=== PATIENT | male | born 1940 | race Caucasian/White ===

== ENCOUNTER → 2018-01-22 11:12 | Outpatient (CLI) | payer MEDICARE, OTHER, SELFPAY ==
[2018-01-22 11:37] LABS: Basophils % 0.4 % (0.1-2.0); Eosinophils # 0.2 K/mm3 (0.0-0.4); Eosinophils % 2.3 % (0.1-12.0); Hematocrit 28.2 % (42.0-52.0); Hemoglobin 9.2 g/dL (14.1-18.0); Lymphocytes # 1.2 K/mm3 (0.7-4.5); Lymphocytes % 12.6 K/mm3 (10-50); Mean Corpuscular HGB Conc 32.4 g/dL (31.8-35.4); Mean Corpuscular Hemoglobin 27.8 pg (27.0-31.2); Mean Corpuscular Volume 85.9 fl (80-94); Mean Platelet Volume 8.4 fl (7.4-10.4); Monocytes # 0.3 K/mm3 (0.1-1.0); Monocytes % 2.6 % (1.7-9.3); Neutrophils % 82.1 % (37.0-80.0); Platelet Count 235 K/mm3 (142-424); Red Blood Count 3.29 M/mm3 (4.60-6.20); Red Cell Distribution Width 14.1 % (11.5-17.5); White Blood Count 9.7 K/mm3 (4.8-10.8)
== END ==
PROVIDERS: Visit Provider General Practice
DX: D64.9 Anemia, unspecified (principal)
CPT/HCPCS: 36415; 85025

== ENCOUNTER → 2018-05-09 12:19 | Outpatient (CLI) | payer MEDICARE, OTHER, SELFPAY | PROVIDERS: Family Provider General Practice; PCP General Practice; Visit Provider Orthopaedic Surgery | DX: M54.31 Sciatica, right side (principal) ==

== ENCOUNTER 2018-12-06 20:06 | Observation (INO) ==
--- NOTE | 2018-12-06 20:23 | Emergency Department Note ---
ED Disposition Clinical Impression: Gastroenteritis due to norovirus, Dehydration Disposition: Admitted as Observation Condition on Discharge: Fair - Critical Care Critical Care Time: No Attestation: On 12/06/18, the high probability of a clinically significant, sudden or life threatening deterioration of the following system(s) required my full and direct attention, intervention and personal management. The time I documented below is in addition to time spent performing reported procedures but includes the following listed in this critical care notation. Medical Decision Making - Aron Inquiry Pt receiving controlled substance: No Vital Signs: 12/06/18 20:20 12/06/18 21:08 12/06/18 21:30 Temperature 98.2 F Temperature Source Oral Pulse Rate [Right] 86 80 86 Respiratory Rate 18 18 18 Blood Pressure [Right Arm] 165/82 H 159/72 H 152/74 H Blood Pressure Mean [Right Arm] 109 101 100 Blood Pressure Source [Right Arm] Automatic Cuff Automatic Cuff Automatic Cuff Blood Pressure Position [Right Arm] Supine Supine Supine 02 Sat by Pulse Oximetry 98 98 98 Oxygen Delivery Method Room Air Room Air Room Air 12/06/18 22:30 Temperature Temperature Source Pulse Rate [Right] 79 Respiratory Rate 14 Blood Pressure [Right Arm] 153/84 H Blood Pressure Mean [Right Arm] 107 Blood Pressure Source [Right Arm] Blood Pressure Position [Right Arm] 02 Sat by Pulse Oximetry 98 Oxygen Delivery Method Room Air - Lab Data Lab Results 12/06/18 20:30: WBC 7.2, RBC 4.41 L, Hgb 12.1 L, Hct 36.7 L, MCV 83.4, MCH 27.4, MCHC 32.8, RDW 14.7, Plt Count 201, MPV 8.0, Neut % (Auto) 89.2 H, Lymph % (Auto) 7.6 L, [place] % (Auto) 2.9, Eos % (Auto) 0.2, Baso % (Auto) 0.2, Neut # (Auto) 6.4, Lymph # (Auto) 0.6 L, [place] # (Auto) 0.2, Eos # (Auto) 0.0, Baso # (Auto) 0.0, Total Counted 100, Neutrophils % (Manual) 77 H, Band Neutrophils % 13.0 H, Lymphocytes % (Manual) 10, Platelet Estimate Normal, RBC Morphology Normal 12/06/18 20:30: Sodium 142, Potassium 3.8, Chloride 106, Carbon Dioxide 21, Anion Gap 18.8 H, BUN 34 H, Creatinine 2.19 H, Estimated Creat Clear 31, Estimated GFR 29 L, Est GFR ( Amer) 35 L, Glucose 149 H, Calcium 8.3 L, Total Bilirubin 1.0, AST 22, ALT 25, Alkaline Phosphatase 77, Troponin I < 0.02, Total Protein 7.2, Albumin 3.4, Globulin 3.8 H, Albumin/Globulin Ratio 0.9 L, Amylase 22 L, Lipase 55 L 12/06/18 20:30: Lactate 2.8 H 12/06/18 20:40: Influenza Type A Ag Negative, Influenza Type B Ag Negative 12/06/18 20:56: Urine Color Yellow, Urine Appearance Clear, Urine pH 5.5, Ur Specific [place] >= 1.030, Urine Protein Trace, Urine Glucose (UA) Negative, Urine Ketones Negative, Urine Blood Trace-i, Urine Nitrate Negative, Urine Bilirubin Negative, Urine Urobilinogen 0.2, Ur Leukocyte Esterase Negative, Ur Squamous Epith Cells 10-20, Amorphous Sediment 2+, Urine Mucus 1+ 12/06/18 20:56: Stl Aeromonas (PCR) Not detected, Stl C. cayetanensis PCR Not detected, Stool Rotavirus (PCR) Not detected, Stl Adenov F 40/41 PCR Not detected, Stool Astrovirus (PCR) Not detected, Stool Campylobacter PCR Not detected, Stl C.difficile Tox PCR Not detected, Stool Cryptosporidium PCR Not detected, Stl E.coli Shiga Tox PCR Not detected, Stool E coli O157 PCR Not detected, Stl Enterotoxigenic E PCR Not detected, Stool EPEC (PCR) Not detected, Stool EAEC (PCR) Not detected, Stl E. histolytica PCR Not detected, Stool Giardia Lamblia PCR Not detected, Stool Salmonella PCR Not detected, Stool Sapovirus (PCR) Not detected, Stl P. shigelloides PCR Not detected, Stl Shigella /EIEC PCR Not detected, St Y.enterocolitica PCR Not detected, Stool Vibrio (PCR) Not detected, Stl Vibrio cholerae PCR Not detected, Stl Norovirus GI/GII PCR Detected A Result diagrams: 12/06/18 20:30 12/06/18 20:30 Orders (Tests/Meds): ED MEDICATIONS Generic Name Dose Route Start Last Admin Trade Name Freq PRN Reason Stop Dose Admin Sodium Chloride 1,000 mls @ 500 mls/hr 12/06/18 20:30 12/06/18 20:33 Sod Chlor 0.9% 1000ml Bag IV 01/05/19 20:29 500 mls/hr .Q2H ELIZABETH Administration Discontinued Medications Generic Name Dose Route Start Last Admin Trade Name Freq PRN Reason Stop Dose Admin Ondansetron HCl 4 mg 12/06/18 21:54 12/06/18 22:15 Zofran 4mg/2ml Vial IV 12/06/18 21:55 4 mg ONCE ONE Administration ORDERS Category Date Time Status CT abdomen pelvis wo con Stat Cat Scan 12/06/18 21:15 Taken Blood Culture Stat Micro 12/06/18 20:30 Received - Radiology Data #1 Image(s): Chest Image Reviewed: Yes I reviewed the patient's radiology image pacer, prior sternotomy. nad. - CT Data CT Scan: Abdomen, Pelvis Time Received: 21:[address] Reviewed: Yes: I have viewed the radiologist's interpretation Findings Narrative: CT scan interpreted by [facility] radiologist. Faxed report received and reviewed: Moderate fluid and gas content in the colon consistent with acute diarrheal illness. Normal appendix. No evidence of diverticulosis or diverticulitis. No evidence of bowel obstruction, perforation, or abscess. Moderate sized hiatal hernia. Small fatty left inguinal hernia. No bowel herniation or obstruction. - ECG Data Tracing #1 EKG interpreted by Shun Mcginnis MD: Rhythm: sinus Rate: 87 Martin: normal Ectopy: none Conduction: normal ST Segment Changes: Nonspecific, diffuse T Wave Changes: Nonspecific, diffuse Q Waves: none No evidence of acute ischemia or injury Prior electrocardiagrams reviewed. Last EKG was 2015. ST, T wave changes are new. - Physician Consults Physician Consulted: Bubba Time: 23:15 Reason -: Admission Comment/Response: Agrees to admit the patient to the hospital. We discussed the patient's clinical information, including history, exam, laboratory and radiology results and ED course. Per hospital procedure, I will write temporary bridge inpatient orders on the patient. Specific orders requested by the admitting physician: Continue hydration, antiemetics General Adult HPI - General Stated complaint: weakness,V&D,Fever Time Seen by Provider: 12/06/18 20:26 - History of Present Illness HPI narrative: Sick for 24 hours. Copious amounts of vomiting and diarrhea. states both have contained blood. Subjective fever. Generalized abdominal pain and distention. No known exposures. No recent travel. Family states has had a previous episode of sepsis and had to have IV infusions of antibiotics for a year and a half. - Related Data Home Medications Medication Instructions Recorded Confirmed Amlodipine Besylate [Amlodipine 5 mg PO BID 12/06/18 12/06/18 5mg tab] Aspirin [Aspir 81] 81 mg PO AC 12/06/18 12/06/18 Atorvastatin Calcium [Atorvastatin 80 mg PO HS 12/06/18 12/06/18 80mg Tab] Fluoxetine HCl 20 mg PO BID 12/06/18 12/06/18 Gabapentin [Gabapentin 300mg Cap] 600 mg PO BID 12/06/18 12/06/18 Hydrocodone/Acetaminophen 10 mg PO TID 12/06/18 12/06/18 [Hydrocodone-Acetamin 10-325 mg] Iron [Iron 18mg Tab] 27 mg PO DAILY 12/06/18 12/06/18 Loratadine [Allergy] 10 mg PO AC 12/06/18 12/06/18 Meloxicam [Mobic 7.5mg Tab] 7.5 mg PO BID 12/06/18 12/06/18 Pantoprazole Sodium [Protonix 40mg 40 mg PO HS 12/06/18 12/06/18 tablet] Ramipril 5 mg PO AC 12/06/18 12/06/18 Temazepam [Restoril] 30 mg PO HS 12/06/18 12/06/18 Allergies Allergy/AdvReac Type Severity Reaction Status Date / Time No Known Allergies Allergy Unverified 08/20/17 15:10 [facility] History - Hepatitis A Screen Attestation statement:: This patient has been screened for Hepatitis A risk factors. I have reviewed the patient's past medical history: Yes ROS Obtained: Yes All systems reviewed & no additional complaints - Constitutional Constitutional: Reports fever(s) (Subjective) - Gastrointestinal Gastrointestingal: Reports: abdominal pain, diarrhea, vomiting blood, bright red blood in stools, vomiting Physical Exam - General General appearance: alert, in no apparent distress - Head Head exam: atraumatic, normocephalic - Eye Eye exam: Present: normal appearance, PERRL, EOMI - ENT ENT exam: Present: mucous membranes dry - Neck Neck exam: Present: normal inspection, trachea midline - Chest Chest inspection: Present: normal inspection, symmetric chest wall rise - Respiratory Respiratory exam: Present: normal lung sounds bilaterally. Absent: respiratory distress - Cardiovascular Cardiovascular exam: Present: regular rate, normal rhythm, normal heart sounds - Abdominal Exam Abdominal exam: Present: distention, tenderness, normal bowel sounds. Absent: rigidity Abdominal tenderness: Present: diffuse - Extremities Exam Extremities exam: Present: normal inspection - Neurological Exam Neurological exam: Present: alert, oriented X3, CN II-XII intact. Absent: motor sensory deficit - Psychiatric Psychiatric exam: Present: normal affect, normal mood - Skin Skin exam: Present: warm, dry
[2018-12-06 20:48] LABS: Basophils % 0.2 % (0.1-2.0); Eosinophils % 0.2 % (0.1-12.0); Hematocrit 36.7 % (42.0-52.0); Hemoglobin 12.1 g/dL (14.1-18.0); Lymphocytes # 0.6 K/mm3 (0.7-4.5); Lymphocytes % 7.6 % (10-50); Mean Corpuscular HGB Conc 32.8 g/dL (31.8-35.4); Mean Corpuscular Hemoglobin 27.4 pg (27.0-31.2); Mean Corpuscular Volume 83.4 fl (80-94); Monocytes # 0.2 K/mm3 (0.1-1.0); Monocytes % 2.9 % (1.7-9.3); Neutrophils # 6.4 K/mm3 (1.8-7.8); Neutrophils % 89.2 % (37.0-80.0); Platelet Count 201 K/mm3 (142-424); Red Blood Count 4.41 M/mm3 (4.60-6.20); Red Cell Distribution Width 14.7 % (11.5-17.5); White Blood Count 7.2 K/mm3 (4.8-10.8)
[2018-12-06 20:57] LABS: Microscopic, Urine URINE MICROSCOPIC (MICROSCOPIC)
[2018-12-06 21:04] LABS: Alanine Aminotransferase 25 U/L (12-78); Albumin Level 3.4 gm/dL (3.4-5.0); Albumin/Globulin Ratio 0.9 (1.1-1.8); Alkaline Phosphatase 77 U/L (46-116); Amylase 22 U/L (25-115); Anion Gap 18.8 mEq/L (5-15); Aspartate Amino Transferase 22 U/L (15-37); Blood Urea Nitrogen 34 mg/dL (7-18); Calcium 8.3 mg/dL (8.5-10.1); Carbon Dioxide 21 mmol/L (21.0-32.0); Chloride 106 mmol/L (98-107); Globulin 3.8 gm/dl (1.3-3.2); Glucose 149 mg/dL (74-106); Lipase 55 u/L (73-393); Potassium 3.8 mmoL/L (3.5-5.1); Sodium 142 mmol/L (136-145); Total Protein,Serum 7.2 gm/dL (6.4-8.2)
[2018-12-06 21:04] LABS: Appearance,Urine CLEAR (Clear); Bilirubin,Urine Negative (Negative); Blood, Urine TRACE-I (Negative); Color,Urine YELLOW (Yellow); Glucose,Urine (UA) Negative (Negative); Ketones,Urine Negative (Negative); Leukocyte Esterase,Urine Negative (Negative); PH,Urine 5.5 (5.0-8.5); Protein,Urine TRACE (Negative); Specific Gravity, Urine >= 1.030 (1.005-1.030); Urobilinogen,Urine 0.2 EU/dl (0.2)
[2018-12-06 21:10] LABS: Amorphous Sediment,Urine 2+ /lpf; Mucus,Urine 1+ /lpf
[2018-12-06 21:37] LABS: Lymphocytes % 10 % (10-50); Neutrophils % 77 % (42-76); RBC Morphology Normal; Total Cells Counted 100
[2018-12-07 03:12] LABS: Anion Gap 14.2 mEq/L (5-15); Calcium 7.6 mg/dL (8.5-10.1); Potassium 4.2 mmoL/L (3.5-5.1)
--- NOTE | 2018-12-07 07:44 | H&P/Discharge Summary ---
General - General Admission date:: 12/07/18 Discharge date: 12/07/18 *Admission Date: 12/07/18 *Chief complaint: Vomiting and diarrhea *History of present illness: 78-year-old male presented to the emergency department with 24 hours of vomiting and diarrhea. Illness began Saturday night with onset of vomiting which continued overnight Saturday until Saturday. He has not vomited since Saturday. Diarrhea began Saturday and continued throughout the day Saturday including his visit in the emergency department. Patient underwent evaluation and was found to have some mild acute kidney injury from dehydration. While he was no longer vomiting he was making frequent trips to the bathroom for what the patient describes as large volume watery diarrhea. Decision was made to admit the patient for observation and IV fluids. [facility] History I have reviewed the patient's past medical history: Yes Medical History: Reports:: Arrhythmia, Hyperlipidemia, Hypertension, Internal Pacemaker, Myocardial Infarction Denies:: Cancer, Diabetes Mellitus Type 1, Diabetes Mellitus Type 2, MRSA *Have you ever received a pneumonia vaccine?: Yes *Have you received a flu vaccine this season?: Yes Other Medical History: Reports: Anemia, Arthritis, Blood Transfusion Reaction, Sinus Problems Other Surgeries: Yes: Pacemaker Amputation: No - *Social History Educational Level: Completed GED/General Educational Development Smoking Status: Former smoker Tobacco Type: cigarettes # Packs/Day (cigarettes): 2 Alcohol Intake: former *Occupational Status:: retired Housing: house *Travel in the last 8 weeks: None - Psychiatric History Expresses thoughts of harming self/others: None Suicide Plan Description: No Plan Family Hx:: Anemia, Bleeding Disorder, Coronary Artery Disease, Heart Attack, Hyperlipidemia, Hypertension, Kidney Disease, Stroke Review of Systems - Review of Systems Review of systems:: pertinent systems reviewed and negative unless documented below Exam Vital signs and Labs for Last 24 Hours: Temp Pulse Resp BP Pulse Ox 98.1 F 74 22 145/53 H 97 12/07/18 04:00 12/07/18 04:00 12/07/18 04:00 12/07/18 04:00 12/07/18 04:00 Laboratory Results - last 24 hr 12/06/18 20:30: WBC 7.2, RBC 4.41 L, Hgb 12.1 L, Hct 36.7 L, MCV 83.4, MCH 27.4, MCHC 32.8, RDW 14.7, Plt Count 201, MPV 8.0, Neut % (Auto) 89.2 H, Lymph % (Auto) 7.6 L, [place] % (Auto) 2.9, Eos % (Auto) 0.2, Baso % (Auto) 0.2, Neut # (Auto) 6.4, Lymph # (Auto) 0.6 L, [place] # (Auto) 0.2, Eos # (Auto) 0.0, Baso # (Auto) 0.0, Total Counted 100, Neutrophils % (Manual) 77 H, Band Neutrophils % 13.0 H, Lymphocytes % (Manual) 10, Platelet Estimate Normal, RBC Morphology Normal 12/06/18 20:30: Sodium 142, Potassium 3.8, Chloride 106, Carbon Dioxide 21, Ani on Gap 18.8 H, BUN 34 H, Creatinine 2.19 H, Estimated Creat Clear 31, Estimated GFR 29 L, Est GFR ( Amer) 35 L, Glucose 149 H, Calcium 8.3 L, Total Bilirubin 1.0, AST 22, ALT 25, Alkaline Phosphatase 77, Troponin I < 0.02, Total Protein 7.2, Albumin 3.4, Globulin 3.8 H, Albumin/Globulin Ratio 0.9 L, Amylase 22 L, Lipase 55 L 12/06/18 20:30: Lactate 2.8 H 12/06/18 20:40: Influenza Type A Ag Negative, Influenza Type B Ag Negative 12/06/18 20:56: Urine Color Yellow, Urine Appearance Clear, Urine pH 5.5, Ur Specific [place] >= 1.030, Urine Protein Trace, Urine Glucose (UA) Negative, Urine Ketones Negative, Urine Blood Trace-i, Urine Nitrate Negative, Urine Bilirubin Negative, Urine Urobilinogen 0.2, Ur Leukocyte Esterase Negative, Ur Squamous Epith Cells 10-20, Amorphous Sediment 2+, Urine Mucus 1+ 12/06/18 20:56: Stl Aeromonas (PCR) Not detected, Stl C. cayetanensis PCR Not detected, Stool Rotavirus (PCR) Not detected, Stl Adenov F 40/41 PCR Not detected, Stool Astrovirus (PCR) Not detected, Stool Campylobacter PCR Not detected, Stl C.difficile Tox PCR Not detected, Stool Cryptosporidium PCR Not detected, Stl E.coli Shiga Tox PCR Not detected, Stool E coli O157 PCR Not detected, Stl Enterotoxigenic E PCR Not detected, Stool EPEC (PCR) Not detected, Stool EAEC (PCR) Not detected, Stl E. histolytica PCR Not detected, Stool Giardia Lamblia PCR Not detected, Stool Salmonella PCR Not detected, Stool Sapovirus (PCR) Not detected, Stl P. shigelloides PCR Not detected, Stl Shigella/EIEC PCR Not detected, St Y.enterocolitica PCR Not detected, Stool Vibrio (PCR) Not detected, Stl Vibrio cholerae PCR Not detected, Stl Norovirus GI/GII PCR Detected A 12/07/18 00:30: Lactate 2.3 H 12/07/18 02:55: Sodium 140, Potassium 4.2, Chloride 106, Carbon Dioxide 24, Anion Gap 14.2, BUN 32 H, Creatinine 1.81 H, Estimated Creat Clear 39, Estimated GFR 37 L, Est GFR ( Amer) 44 L D, Glucose 130 H, Calcium 7.6 L 12/07/18 02:55: Lactate 0.7 I & O for Last 24 hours: Intake & Output 12/04/18 12/05/18 12/06/18 12/07/18 11:59 11:59 11:59 11:59 Intake Total 1507 / 1507 Output Total 400 / 400 Balance 1107 / 1107 Weight 176 lb 9 oz Narrative: Patient is resting comfortably in bed and it does not appear to be in pain. Oropharynx is moist this morning. Lungs are clear. Heart has a regular rate and rhythm. Abdomen is soft, nontender, nondistended with active bowel sounds. Patient has active range of motion in all extremities Hospital Course Hospital Course: Patient was admitted. On arrival to the floor his diarrhea stopped. He was continued on IV fluids. BUN and creatinine improved on repeat BMP. Patient was started on clear liquid diet and encouraged to maintain a liquid diet for several days. In the afternoon of December 07 he was discharged home Results Labs on day of discharge: Labs from last 24 hours 12/07/18 12/07/18 12/07/18 02:55 02:55 00:30 WBC RBC Hgb Hct MCV MCH MCHC RDW Plt Count MPV Neut % (Auto) Lymph % (Auto) [place] % (Auto) Eos % (Auto) Baso % (Auto) Neut # (Auto) Lymph # (Auto) [place] # (Auto) Eos # (Auto) Baso # (Auto) Total Counted Neutrophils % (Manual) Band Neutrophils % Lymphocytes % (Manual) Platelet Estimate RBC Morphology Sodium 140 Potassium 4.2 Chloride 106 Carbon Dioxide 24 Anion Gap 14.2 BUN 32 H Creatinine 1.81 H Estimated Creat Clear 39 Estimated GFR 37 L Est GFR ( Amer) 44 L D Glucose 130 H Lactate 0.7 2.3 H Calcium 7.6 L Total Bilirubin AST ALT Alkaline Phosphatase Troponin I Total Protein Albumin Globulin Albumin/Globulin Ratio Amylase Lipase Urine Color Urine Appearance Urine pH Ur Specific [place] Urine Protein Urine Glucose (UA) Urine Ketones Urine Blood Urine Nitrate Urine Bilirubin Urine Urobilinogen Ur Leukocyte Esterase Ur Squamous Epith Cells Amorphous Sediment Urine Mucus Stl Aeromonas (PCR) Stl C. cayetanensis PCR Stool Rotavirus (PCR) Stl Adenov F 40/41 PCR Stool Astrovirus (PCR) Stool Campylobacter PCR Stl C.difficile Tox PCR Stool Cryptosporidium PCR Stl E.coli Shiga Tox PCR Stool E coli O157 PCR Stl Enterotoxigenic E PCR Stool EPEC (PCR) Stool EAEC (PCR) Stl E. histolytica PCR Stool Giardia Lamblia PCR Stool Salmonella PCR Stool Sapovirus (PCR) Stl P. shigelloides PCR Stl Shigella/EIEC PCR St Y.enterocolitica PCR Stool Vibrio (PCR) Stl Vibrio cholerae PCR Stl Norovirus GI/GII PCR Influenza Type A Ag Influenza Type B Ag 12/06/18 12/06/18 12/06/18 20:56 20:56 20:40 WBC RBC Hgb Hct MCV MCH MCHC RDW Plt Count MPV Neut % (Auto) Lymph % (Auto) [place] % (Auto) Eos % (Auto) Baso % (Auto) Neut # (Auto) Lymph # (Auto) [place] # (Auto) Eos # (Auto) Baso # (Auto) Total Counted Neutrophils % (Manual) Band Neutrophils % Lymphocytes % (Manual) Platelet Estimate RBC Morphology Sodium Potassium Chloride Carbon Dioxide Anion Gap BUN Creatinine Estimated Creat Clear Estimated GFR Est GFR ( Amer) Glucose Lactate Calcium Total Bilirubin AST ALT Alkaline Phosphatase Troponin I Total Protein Albumin Globulin Albumin/Globulin Ratio Amylase Lipase Urine Color Yellow Urine Appearance Clear Urine pH 5.5 Ur Specific [place] >= 1.030 Urine Protein Trace Urine Glucose (UA) Negative Urine Ketones Negative Urine Blood Trace-i Urine Nitrate Negative Urine Bilirubin Negative Urine Urobilinogen 0.2 Ur Leukocyte Esterase Negative Ur Squamous Epith Cells 10-20 Amorphous Sediment 2+ Urine Mucus 1+ Stl Aeromonas (PCR) Not detected Stl C. cayetanensis PCR Not detected Stool Rotavirus (PCR) Not detected Stl Adenov F 40/41 PCR Not detected Stool Astrovirus (PCR) Not detected Stool Campylobacter PCR Not detected Stl C.difficile Tox PCR Not detected Stool Cryptosporidium PCR Not detected Stl E.coli Shiga Tox PCR Not detected Stool E coli O157 PCR Not detected Stl Enterotoxigenic E PCR Not detected Stool EPEC (PCR) Not detected Stool EAEC (PCR) Not detected Stl E. histolytica PCR Not detected Stool Giardia Lamblia PCR Not detected Stool Salmonella PCR Not detected Stool Sapovirus (PCR) Not detected Stl P. shigelloides PCR Not detected Stl Shigella/EIEC PCR Not detected St Y.enterocolitica PCR Not detected Stool Vibrio (PCR) Not detected Stl Vibrio cholerae PCR Not detected Stl Norovirus GI/GII PCR Detected A Influenza Type A Ag Negative Influenza Type B Ag Negative 12/06/18 12/06/18 12/06/18 20:30 20:30 20:30 WBC 7.2 RBC 4.41 L Hgb 12.1 L Hct 36.7 L MCV 83.4 MCH 27.4 MCHC 32.8 RDW 14.7 Plt Count 201 MPV 8.0 Neut % (Auto) 89.2 H Lymph % (Auto) 7.6 L [place] % (Auto) 2.9 Eos % (Auto) 0.2 Baso % (Auto) 0.2 Neut # (Auto) 6.4 Lymph # (Auto) 0.6 L [place] # (Auto) 0.2 Eos # (Auto) 0.0 Baso # (Auto) 0.0 Total Counted 100 Neutrophils % (Manual) 77 H Band Neutrophils % 13.0 H Lymphocytes % (Manual) 10 Platelet Estimate Normal RBC Morphology Normal Sodium 142 Potassium 3.8 Chloride 106 Carbon Dioxide 21 Anion Gap 18.8 H BUN 34 H Creatinine 2.19 H Estimated Creat Clear 31 Estimated GFR 29 L Est GFR ( Amer) 35 L Glucose 149 H Lactate 2.8 H Calcium 8.3 L Total Bilirubin 1.0 AST 22 ALT 25 Alkaline Phosphatase 77 Troponin I < 0.02 Total Protein 7.2 Albumin 3.4 Globulin 3.8 H Albumin/Globulin Ratio 0.9 L Amylase 22 L Lipase 55 L Urine Color Urine Appearance Urine pH Ur Specific [place] Urine Protein Urine Glucose (UA) Urine Ketones Urine Blood Urine Nitrate Urine Bilirubin Urine Urobilinogen Ur Leukocyte Esterase Ur Squamous Epith Cells Amorphous Sediment Urine Mucus Stl Aeromonas (PCR) Stl C. cayetanensis PCR Stool Rotavirus (PCR) Stl Adenov F 40/41 PCR Stool Astrovirus (PCR) Stool Campylobacter PCR Stl C.difficile Tox PCR Stool Cryptosporidium PCR Stl E.coli Shiga Tox PCR Stool E coli O157 PCR Stl Enterotoxigenic E PCR Stool EPEC (PCR) Stool EAEC (PCR) Stl E. histolytica PCR Stool Giardia Lamblia PCR Stool Salmonella PCR Stool Sapovirus (PCR) Stl P. shigelloides PCR Stl Shigella/EIEC PCR St Y.enterocolitica PCR Stool Vibrio (PCR) Stl Vibrio cholerae PCR Stl Norovirus GI/GII PCR Influenza Type A Ag Influenza Type B Ag DS: Diagnosis - Discharge Diagnosis (1) Gastroenteritis due to norovirus Status: Acute (2) Dehydration Status: Acute Discharge Medications - Medications for Discharge Home Medication List at Discharge: No Action Atorvastatin Calcium [Atorvastatin 80mg Tab] 80 mg PO HS Temazepam [Restoril] 30 mg PO HS Loratadine [Allergy] 10 mg PO AC Iron [Iron 18mg Tab] 27 mg PO DAILY Hydrocodone/Acetaminophen [Hydrocodone-Acetamin 10-325 mg] 10 mg PO TID Gabapentin [Gabapentin 300mg Cap] 600 mg PO BID Fluoxetine HCl 20 mg PO BID Aspirin [Aspir 81] 81 mg PO AC Amlodipine Besylate [Amlodipine 5mg tab] 5 mg PO BID Meloxicam [Mobic 7.5mg Tab] 7.5 mg PO BID Pantoprazole Sodium [Protonix 40mg tablet] 40 mg PO HS Disposition Disposition: Home, Self-Care
--- NOTE | 2018-12-07 08:50 | Pharmacy Consult Notes ---
[facility] Pharmacy VTE Monitoring - Patient Demographics Admission date: 12/07/18 Report Date: 12/07/18 Time: 08:50 Allergies/Adverse Reactions: Patient Allergies No Known Allergies Allergy (Verified 12/07/18 01:18) Height: 1.7 m Weight: 80.087 kg Patient Problems: Current Active Problems Gastroenteritis due to norovirus (Acute) Dehydration (Acute) - VTE Risk Labs: VTE Related Lab Results Hgb 12.1 g/dL (14.1-18.0) L 12/06/18 20:30 Hct 36.7 % (42.0-52.0) L 12/06/18 20:30 Plt Count 201 K/mm3 (142-424) 12/06/18 20:30 BUN 32 mg/dL (7-18) H 12/07/18 02:55 Creatinine 1.81 mg/dL (0.70-1.30) H 12/07/18 02:55 Estimated Creat Clear 39 mL/min (50-200) 12/07/18 02:55 VTE Risk Level: Low Risk - Prophylaxis VTE Prophylaxis Ordered?: Yes Types of VTE Prophylaxis: TEDS Knee High Location of Applied Device: Bilateral Lower Extremeties
== END 2018-12-07 12:58 | disposition home or self-care (01) ==
LOC: ER 20:06 → 2ND 20:06
PROVIDERS: ADMIT Family Medicine; ATTEND Family Medicine
DX: E86.0 Dehydration; I25.2 Old myocardial infarction; Z79.899 Other long term (current) drug therapy; I10 Essential (primary) hypertension; Z87.891 Personal history of nicotine dependence; A08.11 Acute gastroenteropathy due to Norwalk agent
CPT/HCPCS: 36415; 71010; 71045; 74176; 80048; 80053; 81001; 82150; 83605; 83690; 84484; 85007; 85025; 87040; 87275; 87276; 87507; 93005; 96365; 96375; 99285; G0378; J2405

== ENCOUNTER 2019-07-23 13:00 | Outpatient (RCR) | payer MEDICARE, OTHER, SELFPAY | END 2019-07-23 13:05 | disposition home or self-care (01) | LOC: PT 13:00 | PROVIDERS: PCP General Practice; Visit Provider Physician Assistant | DX: M54.5 Low back pain (principal); Z98.1 Arthrodesis status | CPT/HCPCS: 97010; 97014; 97035; 97110; 97163; 97164; G0283 ==

== ENCOUNTER 2020-01-21 10:14 | Emergency (ER) | payer MEDICARE, OTHER, SELFPAY ==
[2020-01-21 10:26] VITALS: BP 128/67; PULSE 60; RESP 18; TEMP 36.7; O2SAT 96; BMI 26.6
--- NOTE | 2020-01-21 10:34 | CT_ITS ---
PROCEDURE: CT CERVICAL SPINE WO CON CLINICAL INDICATION: fall Neck injury with pain, contusion/abrasion or hematoma, cervical sprain/strain the COMPARISON: No exams were available for comparison TECHNIQUE: Axial images obtained with sagittal and coronal reformats. All CT scans at the facility use one or more dose reduction, viz: automated exposure control, ma/kV adjustment per patient size (including targeted exams where dose is matched to indication, i.e. head), or iterative reconstruction technique. Axial spiral CT scanning performed of the cervical spine beginning at the base of the skull and continuing to the upper T-spine. 3-D multiplanar reconstruction with 3-D manipulation of volumetric data set in image rendering was completed by the radiologist and/or technologist with the supervision of the radiologist on independent workstation. FINDINGS: No obvious fracture or dislocation. There is multilevel cervical spondylosis with bilateral foraminal narrowing at C3-C4 from uncovertebral and facet hypertrophy, degenerate disc disease with bilateral foraminal narrowing at C4-C5 with facet and uncovertebral hypertrophy. There is some calcification along the posterior longitudinal ligament with canal stenosis of 9 mm. Degenerative disc disease C5-C6 with 3 mm anterolisthesis of C5 and bilateral foraminal narrowing with canal stenosis of 9 mm Degenerative disc disease C6-C7 with bilateral foraminal narrowing greater on the right. The There is some ground-glass attenuation in the left upper lobe non specific. IMPRESSION: 1. No acute fracture. 2. Cervical spondylosis with lateral recess and foraminal narrowing and canal stenosis as detailed above 3. Patchy ground-glass density left upper lobe nonspecific which could be infectious, inflammatory, or due to edema Dictated by: Amadou Butler MD 01/21/2020 11:13 Electronically signed by Amadou Butler MD in [place] 01/21/2020 11:13
--- NOTE | 2020-01-21 10:34 | CT_ITS ---
PROCEDURE: CT HEAD/BRAIN WO CON CLINICAL INDICATION: fall Head injury with headache/pain, contusion, abrasion or hematoma COMPARISON: [facility] CT HEAD W/O CONTRAST from 04/22/2016 TECHNIQUE: Axial images obtained. All CT scans at the facility use one or more dose reduction, viz: automated exposure control, ma/kV adjustment per patient size (including targeted exams where dose is matched to indication, i.e. head), or iterative reconstruction technique. FINDINGS: No midline shift, mass effect, intracranial hemorrhage, hydrocephalus, or extra-axial fluid collection is evident. There is soft tissue swelling in the frontal region centrally. There is some nonspecific calcification within the left basal ganglia the calvarium has an unremarkable appearance. No mastoid effusion. No sinus air-fluid level. IMPRESSION: No acute intracranial finding Scalp contusion in the frontal region Dictated by: Amadou Butler MD 01/21/2020 11:09 Electronically signed by Amadou Butler MD in [place] 01/21/2020 11:09
--- NOTE | 2020-01-21 10:34 | CT_ITS ---
PROCEDURE: CT FACIAL BONES WO CON CLINICAL HISTORY: fall Fall with injury and pain, abrasions of the face with swelling COMPARISON: No exams were available for comparison TECHNIQUE: Axial images obtained with sagittal and coronal reformats. All CT scans at the facility use one or more dose reduction, viz: automated exposure control, ma/kV adjustment per patient size (including targeted exams where dose is matched to indication, i.e. head), or iterative reconstruction technique. FINDINGS: No obvious fracture. No sinus air-fluid level. Soft tissue swelling is present in the frontal region and supra nasal area as well as the infraorbital region on both sides. There is some increased soft tissue density in the left parapharyngeal region and at the base of the tongue on the left. Please correlate with direct visualization. This may only be due to nondistention. IMPRESSION: Soft tissue swelling, no acute fracture Slight increased soft tissue density in the left parapharyngeal region and the base of the tongue possibly due to nondistention. Please correlate with direct visualization Dictated by: Amadou Butler MD 01/21/2020 11:07 Electronically signed by Amadou Butler MD in [place] 01/21/2020 11:07
--- NOTE | 2020-01-21 10:36 | PC.NURSE ---
PT TO CT
--- NOTE | 2020-01-21 10:47 | PC.NURSE ---
Pt returned from rad.
[2020-01-21 10:52] VITALS: BP 125/60; PULSE 60; O2SAT 97
--- NOTE | 2020-01-21 11:29 | HMH.EDFALL ---
ED Disposition Clinical Impression: Superficial contusion of neck Disposition: Home, Self-Care Condition on Discharge: Good Instructions: How to Prevent Falls Referrals: Gian Lee [Primary Care Provider] - - Critical Care Critical Care Time: No Attestation: On 01/21/20, the high probability of a clinically significant, sudden or life threatening deterioration of the following system(s) required my full and direct attention, intervention and personal management. The time I documented below is in addition to time spent performing reported procedures but includes the following listed in this critical care notation. Medical Decision Making - Medical Records Medical records reviewed: Yes: I reviewed the patient's medical records. - Aron Inquiry Pt receiving controlled substance: No Vital Signs: 01/21/20 10:26 01/21/20 10:52 Temperature 98.1 F Temperature Source Oral Pulse Rate [Right Radial] 60 60 Respiratory Rate 18 Blood Pressure [Right Arm] 128/67 125/60 Blood Pressure Mean [Right Arm] 87 81 Blood Pressure Source [Right Arm] Automatic Cuff Blood Pressure Position [Right Arm] Sitting 02 Sat by Pulse Oximetry 96 97 Oxygen Delivery Method Room Air Room Air - CT Data CT Scan: Head, C-Spine Time Received: 09:[address] Reviewed: Yes: I have viewed the radiologist's interpretation Preliminary Findings: Normal/NAD Fall HPI - General Chief Complaint: Fall Stated Complaint: fell 01/20/2020 Time Seen by Provider: 01/21/20 11:29 Mode of Arrival: Wheelchair Source of Information: Patient Limitations: No Limitations Description of Symptoms (Recalled from ER Triage Doc. by RN): PT PRESENTS TO ED VIA PVT CAR WITH ASSISTANCE OF , C/O BRUISING, SWELLING, AND ABRASIONS TO HIS FOREHEAD, EYES AND NOSE. PT STATES THAT HE FELL AT [facility]OX 1400 YESTERDAY WHEN HIS RT LEG GAVE OUT AND CAUSED HIM TO TRIP AT HOME. PT STATES THAT HE FELL FACE FIRST ONTO THE FLOOR. PT ADVISES OF LAY AND WORSE SWELLING YESTERDAY BUT THAT HE APPLIED ICE AND IT HELPED SOME. PT C/O DIZZINESS AT THIS TIME AND SAYS HIS HEAD FEELS FUNNY - History of Present Illness MD complaint: fall Onset (ago): minute(s) Fall from: standing Fall witnessed: yes, by family Place fall occurred: home Loss of consciousness: none Prolonged down time: no Symptoms prior to fall: other (Bad leg) Context: tripped/slipped Location of injury: head Severity: moderate Severity scale (1-10): 4 Quality: burning Associated symptoms (after fall): denies - Related Data Home Medications Medication Instructions Recorded Confirmed Amlodipine Besylate [Amlodipine 5 mg PO BID 12/06/18 12/06/18 5mg tab] Aspirin [Aspir 81] 81 mg PO DAILY 12/06/18 12/07/18 Atorvastatin Calcium [Atorvastatin 80 mg PO HS 12/06/18 12/06/18 80mg Tab] Fluoxetine HCl 20 mg PO BID 12/06/18 12/06/18 Gabapentin [Gabapentin 300mg Cap] 600 mg PO BID 12/06/18 12/06/18 Hydrocodone/Acetaminophen 10 mg PO TID 12/06/18 12/06/18 [Hydrocodone-Acetamin 10-325 mg] Iron [Iron 18mg Tab] 27 mg PO DAILY 12/06/18 12/06/18 Loratadine [Allergy] 10 mg PO DAILY 12/06/18 12/07/18 Meloxicam [Mobic 7.5mg Tab] 7.5 mg PO BID 12/06/18 12/06/18 Pantoprazole Sodium [Protonix 40mg 40 mg PO HS 12/06/18 12/06/18 tablet] Temazepam [Restoril] 30 mg PO HS 12/06/18 12/06/18 Allergies Allergy/AdvReac Type Severity Reaction Status Date / Time No Known Allergies Allergy Verified 12/07/18 01:18 [facility] History - Hepatitis A Screen Drug use history?: No High risk sexual behaviors?: No History of sexually transmitted infection?: No Currently employed?: No Childcare worker?: No Do you have indoor plumbing?: Yes Do you have electricity?: Yes Attestation statement:: This patient has been screened for Hepatitis A risk factors. I have reviewed the patient's past medical history: Yes Medical History: Reports:: Arrhythmia, Hyperlipidemia, Hypertension, Internal Pacemaker, Myocardial Infarction
[2020-01-21 11:45] VITALS: BP 131/74; PULSE 84; RESP 18; TEMP 36.8; O2SAT 98
== END 2020-01-21 11:47 | disposition home or self-care (01) ==
PROVIDERS: Emergency Provider Family Medicine; PCP General Practice
DX: S10.93XA Contusion of unspecified part of neck, initial encounter (principal); W01.0XXA Fall on same level from slipping, tripping and stumbling without subsequent striking against object, initial encounter; Y92.019 Unspecified place in single-family (private) house as the place of occurrence of the external cause; I10 Essential (primary) hypertension; E78.5 Hyperlipidemia, unspecified; I25.2 Old myocardial infarction; Z95.0 Presence of cardiac pacemaker; Z87.891 Personal history of nicotine dependence; Z79.899 Other long term (current) drug therapy
CPT/HCPCS: 70450; 70486; 72125; 99282

== ENCOUNTER → 2020-03-03 12:33 | Outpatient (CLI) | payer MEDICARE, OTHER, SELFPAY ==
--- NOTE | 2020-03-03 12:41 | CA_ITS ---
APPROVED REPORT Agriculture Instructor: Mirta Bradley RVT Laterality: Bilateral Study Quality: Good Indications: Carotid stenosis, Syncope Doppler Spectral Velocity Analysis ECA (R) 87.20/9.70 cm/s ECA (L) 121.10/7.90 cm/s dICA (R) 103.90/26.40 cm/s dICA (L) 163.40/34.10 cm/s Rosalino (R) 113.00/32.20 cm/s Rosalino (L) 167.40/41.10 cm/s pICA (R) 100.10/20.90 cm/s pICA (L) 189.50/49.10 cm/s dCCA (R) 100.10/16.70 cm/s dCCA (L) 103.30/16.40 cm/s pCCA (R) 106.60/19.90 cm/s pCCA (L) 97.80/16.80 cm/s Vert (R) 101.00/24.70 cm/s Vert (L) 49.10/11.30 cm/s ICA/CCA 1.13 ICA/CCA 1.83 Findings Study suggests less than 20% stenosis of the right internal cartoid artery. Study suggests 50-69% stenosis (upper end of scale) of the left internal cartoid artery. Antegrade flow seen bilateral vertebral arteries. Conclusion Study suggests less than 20% stenosis of the right internal cartoid artery. Study suggests 50-69% stenosis (upper end of scale) of the left internal cartoid artery. Antegrade flow seen bilateral vertebral arteries. Electronically signed by : Amadou Butler MD 03/04/2020 11:37:46
== END ==
PROVIDERS: PCP General Practice; Visit Provider Internal Medicine Cardiovascular Disease
DX: I65.23 Occlusion and stenosis of bilateral carotid arteries (principal); R55 Syncope and collapse; I25.9 Chronic ischemic heart disease, unspecified; I33.0 Acute and subacute infective endocarditis
CPT/HCPCS: 93880

== ENCOUNTER 2021-01-28 10:29 | Observation (INO) | payer MEDICARE, OTHER, SELFPAY ==
[2021-01-28] VITALS (12 sets, daily range): BP systolic 114–168; BP diastolic 50–67; PULSE 59–67; RESP 16–20; TEMP 36.4–36.9; O2SAT 94–97; BMI 25.8; BMI 27.4
--- NOTE | 2021-01-28 10:39 | HMH.EDGENADL ---
ED Disposition Clinical Impression: Postoperative pain Disposition: Admitted as Observation Condition on Discharge: Fair - Critical Care Critical Care Time: No Attestation: On , the high probability of a clinically significant, sudden or life threatening deterioration of the following system(s) required my full and direct attention, intervention and personal management. The time I documented below is in addition to time spent performing reported procedures but includes the following listed in this critical care notation. Medical Decision Making - Aron Inquiry Pt receiving controlled substance: Yes Aron was queried for this patient: Yes Risks and benefits of using a controlled substance: were not discussed with pt by me Vital Signs: 01/28/21 10:29 01/28/21 10:30 01/28/21 11:02 Temperature 98.4 F Temperature Source Oral Pulse Rate 60 60 Pulse Rate [Left Radial] 63 Respiratory Rate 20 Blood Pressure 168/67 H 160/58 H Blood Pressure [Right Arm] 156/67 H Blood Pressure Mean Blood Pressure Mean [Right Arm] 96 Blood Pressure Source [Right Arm] Automatic Cuff Blood Pressure Position [Right Arm] Sitting 02 Sat by Pulse Oximetry 94 L 94 L 95 Oxygen Delivery Method Room Air 01/28/21 11:25 01/28/21 12:01 01/28/21 12:30 Temperature Temperature Source Pulse Rate 59 L 59 L 66 Pulse Rate [Left Radial] Respiratory Rate Blood Pressure 157/59 H 135/60 140/61 Blood Pressure [Right Arm] Blood Pressure Mean 85 85 Blood Pressure Mean [Right Arm] Blood Pressure Source [Right Arm] Blood Pressure Position [Right Arm] 02 Sat by Pulse Oximetry 96 95 Oxygen Delivery Method - Lab Data Lab Results 01/28/21 11:00: WBC 17.3 H, RBC 4.00 L, Hgb 11.6 L, Hct 34.2 L, MCV 85.5, MCH 28.9, MCHC 33.8, RDW 13.9, Plt Count 235, MPV 8.3, Neut % (Auto) 88.1 H, Lymph % (Auto) 7.7 L, [place] % (Auto) 2.4, Eos % (Auto) 1.7, Baso % (Auto) 0.1, Neut # (Auto) 15.2 H, Lymph # (Auto) 1.3, [place] # (Auto) 0.4, Eos # (Auto) 0.3, Baso # (Auto) 0.0, Total Counted 100, Neutrophils % (Manual) 80 H, Band Neutrophils % 2.0, Lymphocytes % (Manual) 15, Monocytes % (Manual) 3, Platelet Estimate Normal, RBC Morphology Normal 01/28/21 11:00: Sodium 133 L, Potassium 4.7, Chloride 102, Carbon Dioxide 30, Anion Gap 5.7, BUN 34 H, Creatinine 1.50 H, Estimated Creat Clear 44, Estimated GFR 45 L, Est GFR ( Amer) 55 L, Glucose 144 H, Calcium 7.8 L 01/28/21 12:25: Chlamy pneumoniae PCR Not detected, Adenovirus (PCR) Not detected, B. pertussis DNA (PCR) Not detected, Coronavirus OC43 (PCR) Not detected, Coronavirus HKU1 (PCR) Not detected, Coronavirus 229E (PCR) Not detected, SARS-CoV-2 (PCR) Not detected, Coronavirus NL63 (PCR) Not detected, Human Metapneumovir PCR Not detected, Influenza A (H1) PCR Not detected, Influ A (H1N1/09) PCR Not detected, Influenza A (H3) PCR Not detected, Influenza Type A (PCR) Not detected, Influenza Type B (PCR) Not detected, M. pneumoniae (PCR) Not detected, Parainfluenza 1 (PCR) Not detected, Parainfluenza 2 (PCR) Not detected, Parainfluenza 3 (PCR) Not detected, Parainfluenza 4 (PCR) Not detected, RSV (PCR) Not detected, Entero/Rhino (PCR) Not detected Result diagrams: 01/28/21 11:00 01/28/21 11:00 Orders (Tests/Meds): ED MEDICATIONS Generic Name Dose Route Start Last Admin Trade Name Freq PRN Reason Stop Dose Admin Hydrocodone Bitart/Acetaminophen tab 01/28/21 14:22 Hydrocodone 10mg/Apap 325mg Tab PO 02/27/21 14:21 TIDP PRN Moderate Pain Amlodipine Besylate 5 mg 01/28/21 21:00 Amlodipine 5mg Tablet PO 02/27/21 20:59 BID ELIZABETH Aspirin 81 mg 01/29/21 09:00 Aspirin Ec 81mg Tablet PO 02/28/21 08:59 DAILY ELIZABETH Gabapentin 600 mg 01/28/21 21:00 Gabapentin 300mg Capsule PO 02/27/21 20:59 BID [facility] Morphine Sulfate 4 mg 01/28/21 14:22 Morphine 4mg/Ml Syringe IV 02/27/21 14:21 Q4HP PRN Severe Pain Non-Formulary Medicati
--- NOTE | 2021-01-28 10:40 | PC.NURSE ---
offered pt a meal tray, refused at this time. DAughter present in room
--- NOTE | 2021-01-28 11:12 | PC.NURSE ---
Dr Mcginnis speaking with Dr Ayon
[2021-01-28 11:13] LABS: Basophils % 0.1 % (0.1-2.0); Eosinophils # 0.3 K/mm3 (0.0-0.4); Eosinophils % 1.7 % (0.1-12.0); Hematocrit 34.2 % (42.0-52.0); Hemoglobin 11.6 g/dL (14.1-18.0); Lymphocytes # 1.3 K/mm3 (0.7-4.5); Lymphocytes % 7.7 % (10-50); Mean Corpuscular HGB Conc 33.8 g/dL (31.8-35.4); Mean Corpuscular Hemoglobin 28.9 pg (27.0-31.2); Mean Corpuscular Volume 85.5 fl (80-94); Mean Platelet Volume 8.3 fl (7.4-10.4); Monocytes # 0.4 K/mm3 (0.1-1.0); Monocytes % 2.4 % (1.7-9.3); Neutrophils # 15.2 K/mm3 (1.8-7.8); Neutrophils % 88.1 % (37.0-80.0); Platelet Count 235 K/mm3 (142-424); Red Cell Distribution Width 13.9 % (11.5-17.5); White Blood Count 17.3 K/mm3 (4.8-10.8)
[2021-01-28 11:16] LABS: MANUAL DIFFERENTIAL MANUAL DIFFERENTIAL (MANUAL DIFF)
[2021-01-28 11:22] LABS: Chloride 102 mmol/L (98-107); Potassium 4.7 mmoL/L (3.5-5.1); Sodium 133 mmol/L (136-145)
--- NOTE | 2021-01-28 11:23 | PC.NURSE ---
Dr Ayon calling for Dr Mcginnis again at this time.
[2021-01-28 11:25] LABS: Blood Urea Nitrogen 34 mg/dl (9-20); Creatinine Clearance Estimated 44 mL/min (50-200); Estimated Glomerular Filt Rate 45 ml/min (>60); GFR (African American) 55 ML/MIN (>60)
[2021-01-28 11:26] LABS: Anion Gap 5.7 mEq/L (5-15); Calcium 7.8 mg/dl (8.4-10.2); Carbon Dioxide 30 mmol/L (22.0-30.0); Glucose 144 mg/dl (74-100); Lymphocytes % 15 % (10-50); Monocytes % 3 % (2-9); Neutrophils % 80 % (42-76); Platelet Estimate Normal; RBC Morphology Normal; Total Cells Counted 100
--- NOTE | 2021-01-28 11:33 | PC.NURSE ---
Calling [facility] at this time.
--- NOTE | 2021-01-28 11:35 | PC.NURSE ---
Dr Walker who is emergency communications officer for pt's surgeon to return call from [facility].
--- NOTE | 2021-01-28 11:36 | PC.NURSE ---
Dr Walker returned call.
[2021-01-28 12:30] LABS: Adenovirus,PCR Not Detected (NotDetected); Bordetella Pertussis Not Detected (NotDetected); Chlamydophila Pneumoniae, PCR Not Detected (NotDetected); Coronavirus 19, PCR Not Detected (NotDetected); Coronavirus 229E Not Detected (NotDetected); Coronavirus NL63 Not Detected (NotDetected); Coronavirus OC43 Not Detected (NotDetected); Coronovirus HKU1,PCR Not Detected (NotDetected); Human Metapneumovirus Not Detected (NotDetected); Influenza A, PCR Not Detected (NotDetected); Influenza AH1, 2009 Not Detected (NotDetected); Influenza AH1, PCR Not Detected (NotDetected); Influenza AH3,PCR Not Detected (NotDetected); Influenza B, PCR Not Detected (NotDetected); Mycoplasma Pneumoniae, PCR Not Detected (NotDetected); Parainfluenza 1, PCR Not Detected (NotDetected); Parainfluenza 2, PCR Not Detected (NotDetected); Parainfluenza 3, PCR Not Detected (NotDetected); Parainfluenza 4, PCR Not Detected (NotDetected); Respiratory Syncytial Virus Not Detected (NotDetected); Rhinovirus/Enterovirus Not Detected (NotDetected)
--- NOTE | 2021-01-28 12:30 | PC.NURSE ---
Offered pt a meal tray, refused at this time.
--- NOTE | 2021-01-28 14:27 | PC.NURSE ---
Report called to [facility]
--- NOTE | 2021-01-28 14:44 | PC.NURSE ---
Pt arrived to the floor at this time,
--- NOTE | 2021-01-28 15:52 | HMH.HP ---
*Admission Date: 01/28/21 *Chief complaint: post op pain *History of present illness: 80 yr old male presented to ED via ambulance from [facility]. Patient report numerous back surgeries, prior CABG,pacemaker and accident at work numerous years ago. Patient states that he had fusion surgery on his neck at [facility] on Saturday 3 days ago for neck pain. pt states neck pain the same now as prior to surgery but the numbness and tingling has increased since surgery. 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 Patient states he arrived at [facility] yesterday and since being there he has not received good care and wishes not to return there. Patient states he was hungry, cold, wet in urine, and has not been given any pain medicine until this morning. Patient states after receiving pain meds his pain improved. His pain now is about 8-10/10, earlier it was 12/10. He says he also is supposed to be on gabapentin and he has not received any. He also is not happy because he will not receive therapy until Saturday. He does not want to return to the detention. Patient admitted for pain control and rehab placement [facility] History I have reviewed the patient's past medical history: Yes Medical History: Reports:: Arrhythmia, Coronary Artery Disease, Hyperlipidemia, Hypertension, Internal Pacemaker, Myocardial Infarction Denies:: Cancer, Diabetes Mellitus Type 1, Diabetes Mellitus Type 2, MRSA *Have you ever received a pneumonia vaccine?: Yes *Have you received a flu vaccine this season?: Yes Other Medical History: Reports: Anemia, Arthritis, Blood Transfusion Reaction, Sinus Problems Laterality Cases: Bilateral: Other (pacemaker) Other Surgeries: Yes: Pacemaker Amputation: No - *Social History Last grade of school completed: GED Smoking Status: Former smoker Tobacco Type: cigarettes # Packs/Day (cigarettes): 2 Alcohol Intake: former Alcohol Intake Frequency:: holidays/special occasions only *Occupational Status:: retired Housing: house *Travel in the last 8 weeks: None Family Hx:: Anemia, Bleeding Disorder, Coronary Artery Disease, Heart Attack, Hyperlipidemia, Hypertension, Kidney Disease, Stroke Review of Systems - Review of Systems Review of systems:: pertinent systems reviewed and negative unless documented below - Constitutional Denies body ache(s), Denies fatigue - Eyes Denies blurry vision - ENT Denies bleeding gums, Denies sinus pain - *Cardiovascular Denies chest pain at rest - *Respiratory Denies chest congestion - *Gastrointestinal Denies belching - *Genitourinary Reports urinary incontinence, Denies urinary frequency - *Musculoskeletal Reports joint pain, Reports back pain, Reports limited joint movement - Integumentary/Breasts Denies rash - *Neurologic Denies dizziness - Psychiatric Denies lack of enjoyment - Endocrine Denies flushing - Hematologic/Lymphatic Denies enlarged lymph nodes - Allergic/Immunologic Denies itchy eyes Meds Home Medications Medication Instructions Recorded Confirmed Type Amlodipine Besylate [Amlodipine 5 mg PO BID 12/06/18 01/28/21 History 5mg tab] Aspirin [Aspir 81] 81 mg PO DAILY 12/06/18 01/28/21 History Atorvastatin Calcium [Lipitor 80mg 80 mg PO HS 12/06/18 01/28/21 History Tab] Fluoxetine HCl 20 mg PO HS 12/06/18 01/28/21 History Gabapentin [Gabapentin 300mg Cap] 600 mg PO BID 12/06/18 01/28/21 History Hydrocodone/Acetaminophen 1 tab PO TID PRN 12/06/18 01/28/21 History [Hydrocodone-Acetamin 10-325 mg] Iron [Iron 18mg Tab] 27 mg PO DAILY 12/06/18 01/28/21 History Loratadine [Allergy] 10 mg PO DAILY 12/06/18 01/28/21 History Pantoprazole Sodium [Protonix 40mg 40 mg PO HS 12/06/18 01/28/21 History tablet] Temazepam [Restoril] 30 mg PO HS 12/06/18 01/28/21 History Cyanocobalamin (Vitamin B-12) 1,000 mcg PO DAILY 01/28/21 0
--- NOTE | 2021-01-28 18:27 | PC.NURSE ---
Pt alert and oriented. Pt is a new admit this shift. CB in reach. Pt has had no complaints since coming to floor. Dsg is cdi to the back of neck. VSS. NAD. S1,S2, lungs clear, abd soft and bs x 4 quads.
--- NOTE | 2021-01-29 03:46 | PC.NURSE ---
No acute changes overnigt. Pt has slept most of the shift. Pt stated he felt he would sleep better with a pain pill, norco was given x1, pt resting afterwards. Lungs CTA, on room air. Bowel sounds x4, abd soft and nontender. Pt able to make needs known to staff. IV patent, VSS, call light in reach, no concerns at this time.
[2021-01-29 04:00] VITALS: BP 117/54; PULSE 67; RESP 16; TEMP 36.4; O2SAT 96
[2021-01-29 05:00] VITALS: BMI 27.2
[2021-01-29 08:00] VITALS: BP 142/68; PULSE 73; RESP 18; TEMP 36.9; O2SAT 97
--- NOTE | 2021-01-29 08:33 | HMH.PHAVTE ---
[facility] Pharmacy VTE Monitoring - Patient Demographics Admission date: 01/29/21 Report Date: 01/29/21 Time: 08:33 Allergies/Adverse Reactions: Patient Allergies No Known Allergies Allergy (Verified 12/07/18 01:18) Height: 1.7 m Weight: 78.642 kg Patient Problems: Current Active Problems Postoperative pain (Acute) Hx of CABG (Acute) Pacemaker (Acute) Unsteady gait when walking (Acute) - VTE Risk Labs: VTE Related Lab Results Hgb 11.6 g/dL (14.1-18.0) L 01/28/21 11:00 Hct 34.2 % (42.0-52.0) L 01/28/21 11:00 Plt Count 235 K/mm3 (142-424) 01/28/21 11:00 BUN 34 mg/dl (9-20) H 01/28/21 11:00 Creatinine 1.50 mg/dl (0.66-1.25) H 01/28/21 11:00 Estimated Creat Clear 44 mL/min (50-200) 01/28/21 11:00 VTE Score: 4 VTE Risk Level: Low Risk - Prophylaxis Types of VTE Prophylaxis: TEDS Knee High Location of Applied Device: Bilateral Lower Extremeties (MADAI HOSE ORDERED)
[2021-01-29 08:46] LABS: Basophils % 0.1 % (0.1-2.0); Eosinophils # 0.6 K/mm3 (0.0-0.4); Eosinophils % 3.3 % (0.1-12.0); Hematocrit 33.9 % (42.0-52.0); Hemoglobin 11.2 g/dL (14.1-18.0); Lymphocytes # 1.2 K/mm3 (0.7-4.5); Mean Corpuscular HGB Conc 33.2 g/dL (31.8-35.4); Mean Corpuscular Hemoglobin 29.3 pg (27.0-31.2); Mean Corpuscular Volume 88.5 fl (80-94); Mean Platelet Volume 7.7 fl (7.4-10.4); Monocytes # 0.5 K/mm3 (0.1-1.0); Neutrophils # 14.9 K/mm3 (1.8-7.8); Neutrophils % 86.6 % (37.0-80.0); Platelet Count 209 K/mm3 (142-424); Red Blood Count 3.83 M/mm3 (4.60-6.20); White Blood Count 17.2 K/mm3 (4.8-10.8)
--- NOTE | 2021-01-29 08:47 | HMH.PHAVTE ---
[facility] Pharmacy VTE Monitoring - Patient Demographics Admission date: 01/29/21 Report Date: 01/29/21 Time: 08:47 Allergies/Adverse Reactions: Patient Allergies No Known Allergies Allergy (Verified 12/07/18 01:18) Height: 1.7 m Weight: 78.642 kg Patient Problems: Current Active Problems Postoperative pain (Acute) Hx of CABG (Acute) Pacemaker (Acute) Unsteady gait when walking (Acute) - VTE Risk Labs: VTE Related Lab Results Hgb 11.2 g/dL (14.1-18.0) L 01/29/21 08:40 Hct 33.9 % (42.0-52.0) L 01/29/21 08:40 Plt Count 209 K/mm3 (142-424) 01/29/21 08:40 BUN 34 mg/dl (9-20) H 01/28/21 11:00 Creatinine 1.50 mg/dl (0.66-1.25) H 01/28/21 11:00 Estimated Creat Clear 44 mL/min (50-200) 01/28/21 11:00 VTE Score: 4 VTE Risk Level: Low Risk - Prophylaxis Types of VTE Prophylaxis: TEDS Knee High Location of Applied Device: Bilateral Lower Extremeties (MADAI HOSE ORDERED)
[2021-01-29 08:48] LABS: MANUAL DIFFERENTIAL MANUAL DIFFERENTIAL (MANUAL DIFF)
[2021-01-29 08:56] LABS: Anion Gap 7.9 mEq/L (5-15); Blood Urea Nitrogen 38 mg/dl (9-20); Calcium 7.3 mg/dl (8.4-10.2); Carbon Dioxide 24 mmol/L (22.0-30.0); Chloride 107 mmol/L (98-107); Creatinine Clearance Estimated 48 mL/min (50-200); Estimated Glomerular Filt Rate 49 ml/min (>60); GFR (African American) 59 ML/MIN (>60); Glucose 190 mg/dl (74-100); Potassium 4.9 mmoL/L (3.5-5.1); Sodium 134 mmol/L (136-145)
[2021-01-29 09:11] LABS: Eosinophils % 3 % (0-3); Lymphocytes % 8 % (10-50); Monocytes % 4 % (2-9); Neutrophils % 84 % (42-76); Platelet Estimate Normal; RBC Morphology Normal; Total Cells Counted 100
--- NOTE | 2021-01-29 11:59 | P.PN_ITS ---
Internal Medicine - PN: Subj *Date: 01/29/21 *Time: 11:59 Interval history: pt with no specific c/o - has pain Exam Vital signs and Labs for Last 24 Hours: Temp Pulse Resp BP Pulse Ox 98.5 F 73 18 142/68 H 97 01/29/21 08:00 01/29/21 08:00 01/29/21 08:00 01/29/21 08:00 01/29/21 08:00 Laboratory Results - last 24 hr 01/28/21 12:25: Chlamy pneumoniae PCR Not detected, Adenovirus (PCR) Not detected, B. pertussis DNA (PCR) Not detected, Coronavirus OC43 (PCR) Not detected, Coronavirus HKU1 (PCR) Not detected, Coronavirus 229E (PCR) Not detected, SARS-CoV-2 (PCR) Not detected, Coronavirus NL63 (PCR) Not detected, Human Metapneumovir PCR Not detected, Influenza A (H1) PCR Not detected, Influ A (H1N1/09) PCR Not detected, Influenza A (H3) PCR Not detected, Influenza Type A (PCR) Not detected, Influenza Type B (PCR) Not detected, M. pneumoniae (PCR) Not detected, Parainfluenza 1 (PCR) Not detected, Parainfluenza 2 (PCR) Not detected, Parainfluenza 3 (PCR) Not detected, Parainfluenza 4 (PCR) Not detected, RSV (PCR) Not detected, Entero/Rhino (PCR) Not detected 01/29/21 08:40: WBC 17.2 H, RBC 3.83 L, Hgb 11.2 L, Hct 33.9 L, MCV 88.5, MCH 29.3, MCHC 33.2, RDW 14.0, Plt Count 209, MPV 7.7, Neut % (Auto) 86.6 H, Lymph % (Auto) 7.0 L, [place] % (Auto) 3.0, Eos % (Auto) 3.3, Baso % (Auto) 0.1, Neut # (Auto) 14.9 H, Lymph # (Auto) 1.2, [place] # (Auto) 0.5, Eos # (Auto) 0.6 H, Baso # (Auto) 0.0, Total Counted 100, Neutrophils % (Manual) 84 H, Band Neutrophils % 1.0, Lymphocytes % (Manual) 8 L, Monocytes % (Manual) 4, Eosinophils % (Manual) 3, Platelet Estimate Normal, RBC Morphology Normal 01/29/21 08:40: Sodium 134 L, Potassium 4.9, Chloride 107, Carbon Dioxide 24, Anion Gap 7.9, BUN 38 H, Creatinine 1.40 H, Estimated Creat Clear 48, Estimated GFR 49 L, Est GFR ( Amer) 59, Glucose 190 H D, Calcium 7.3 L I & O for Last 24 hours: Intake & Output 01/26/21 01/27/21 01/28/21 01/29/21 11:59 11:59 11:59 11:59 Intake Total 600 / 600 Output Total 300 / 300 Balance 300 / 300 Weight 170 lb 173 lb 6 oz - Constitutional no acute distress - *Routine HEENT Exam Head: Present: normocephalic Eye: Present: EOMI, PERRL ENT: Present: mucous membranes dry - *Routine Neck Exam Present: supple - *Routine Respiratory Exam Present: decreased breath sounds - *Routine Cardiovascular Exam Present: RRR, murmur - *Routine Abdominal Exam Present: soft - *Routine Extremities Exam Absent: calf tenderness - *Routine Skin Exam Present: intact - *Routine Neurological Exam Present: alert, CN II-XII intact - Routine Psychiatric Exam Present: normal affect Assessment and Plan (1) Hx of CABG Status: Acute Category: Surgical Code(s): Z95.1 - Presence of aortocoronary bypass graft (2) Pacemaker Status: Acute Category: Medical Code(s): Z95.0 - Presence of cardiac pacemaker (3) Unsteady gait when walking Status: Acute Category: Medical Code(s): R26.81 - Unsteadiness on feet (4) Postoperative pain Status: Acute Category: Medical Code(s): G89.18 - Other acute postprocedural pain
--- NOTE | 2021-01-29 12:14 | XR_ITS ---
PROCEDURE INFORMATION: Exam: XR Chest Exam date and time: 01/29/2021 12:14 PM Age: 80 years old Clinical indication: Shortness of breath; Prior surgery; Additional info: SOB TECHNIQUE: Imaging protocol: XR of the chest. Views: 1 view. COMPARISON: CR [id number] XR chest portable 12/06/2018 9:05 PM FINDINGS: Tubes, catheters and devices: A pacemaker device is present, and its leads are in appropriate position. There are sternal wires consistent with previous sternotomy incision. Lungs: The lungs are hyperinflated, consistent with underlying small airways disease. Atelectatic changes noted within the lung bases. Pleural spaces: Unremarkable. No pleural effusion. No pneumothorax. Heart/Mediastinum: Unremarkable. No cardiomegaly. Bones/joints: Postoperative changes of the thoracic spine. IMPRESSION: 1. The lungs are hyperinflated, consistent with underlying small airways disease. 2. Atelectatic changes noted within the lung bases.
--- NOTE | 2021-01-29 12:32 | HMH.PTEV ---
Physical Therapy Evaluation Rehab PT IP Evaluation Start: 01/28/21 14:22 Freq: .once Status: Active Protocol: Document 01/29/21 12:23 JOSHUA (Rec: 01/29/21 12:31 [email or web address] [id number]) Subjective/History History History PT ADMITTED TO [facility] 80 YO MALE WITH NECK PAIN SECONDARY TO CERVICAL SPINE FUSION SX. ON 01/25/21, WAS D/C'D TO [facility] BUT REPORTS POOR CARE CASUING AN INCREASE IN POST-OP NECK PAIN, TRANSFERRED TO [facility] . PT REPORTS 7/10 NECK PAIN THIS PM, WITH LLE PAIN, AND R LE WEAKNESS. PT REPORTS MULTIPLE LUMBAR AND CERVICAL SPINE SX.'S IN [facility]. Subjective Subjective PT REPORTS 7/10 NECK PAIN ON VAS THIS PM. Rehab PT IP Eval Objective Appearance Patient Behavior Appropriate,Cooperative Patient Orientation Person,Place,Time,Name, Birthday Difficulty following instructions none Speech Pattern Clear,Appropriate,Coherent Ambulation Patient Able to Ambulate Yes Ambulation Observation IP General Gait Pattern Observation Shuffling Step Ambulation Distance (feet) 15 Ambulation Assistive Device Rolling Walker Ambulation Ability Moderate x 1 (50% assist) Balance Ability to Arise Able, uses arms to help Sitting Balance Steady, safe Standing Balance Unsteady Dynamic Sitting Balance Ability Normal Dynamic Standing Balance Ability Fair Transfers Chair Transfer Ability Moderate x 1 (50% assist) Sit to Stand Chair Transfer Ability Moderate x 1 (50% assist) Pain Posterior Neck Pain Intensity 7 Back Pain Intensity 7 ROM RLE PT ROM Status ABN Abnormal ROM Comment LIMITED DF All Extremities PT ROM Status WFL MMT RLE PT MMT ABN Abnormal MMT Grade 3-/5 All Extremities PT MMT WFL Rehab PT IP prob,goals,plan Problems Date of Evaluation: 01/29/21 PT IP Problems Bed Mobility,Transfers,Gait, Balance,Self care,Safety Rehab Potential Rehab Potential Good Equipment Needs Assistive Devices Rolling / Wheeled Walker Plan PT Intervention Plan Bed Mobility,Transfers,Gait, Balance,Self care,Safety PT Plan Frequency BID Duration
[2021-01-29 12:36] LABS: C-Reactive Protein 50.7 mg/L (0-4)
[2021-01-29 12:48] LABS: Procalcitonin 0.054 ng/mL (0.0-2.0)
[2021-01-29 13:19] LABS: Lactic Acid 1.7 mmol/L (0.7-2.1)
[2021-01-29 13:31] LABS: Erythrocyte Sedimentation Rate 57 mm/hr (0-20)
--- NOTE | 2021-01-29 13:40 | HMH.PHACONS ---
- Pharmacy Consult Date: 01/29/21 Time: 13:40 Referring provider: DR. SIN Reason for Consult:: VANCOMYCIN DOSING Allergies and ADEs:: Allergies Allergy/AdvReac Type Severity Reaction Status Date / Time No Known Allergies Allergy Verified 12/07/18 01:18 Home Medications:: Home Medications Medication Instructions Recorded Confirmed Type Atorvastatin Calcium [Lipitor 80mg 80 mg PO HS 12/06/18 01/28/21 History Tab] Fluoxetine HCl 20 mg PO HS 12/06/18 01/28/21 History Loratadine [Allergy] 10 mg PO DAILY 12/06/18 01/28/21 History Pantoprazole Sodium [Protonix 40mg 40 mg PO HS 12/06/18 01/28/21 History tablet] Temazepam [Restoril] 30 mg PO HS 12/06/18 01/28/21 History Cyanocobalamin (Vitamin B-12) 1,000 mcg PO DAILY 01/28/21 01/28/21 History [B-12] Tamsulosin HCl [Flomax 0.4mg 0.4 mg PO HS 01/28/21 01/28/21 History capsule] Acetaminophen [Acetaminophen 325mg 650 mg PO Q6HP PRN 01/29/21 01/29/21 History tab] Amlodipine Besylate 5 mg PO DAILY 01/29/21 01/29/21 History Aspirin [Aspirin 81mg chewable 81 mg PO DAILY 01/29/21 01/29/21 History tab] Cholecalciferol (Vitamin D3) 2,000 unit PO DAILY 01/29/21 01/29/21 History [Vitamin D3] Docusate Sodium 100 mg PO BIDP PRN 01/29/21 01/29/21 History Ferrous Gluconate [Ferrous 324 mg PO DAILY 01/29/21 01/29/21 History Gluconate 324mg Tab] Fluticasone Propionate [Flonase 2 spray NS DAILYP PRN 01/29/21 01/29/21 History Allergy Relief NS] Gabapentin 600 mg PO BID 01/29/21 01/29/21 History Naproxen Sodium [Naproxen 220mg 440 mg PO BID 01/29/21 01/29/21 History Tab] Oxycodone HCl/Acetaminophen 1 tab PO Q8HP PRN 01/29/21 01/29/21 History [Percocet 10-325 mg Tablet] Height: 1.7 m Weight: 78.642 kg Laboratory Results:: Laboratory Results - last 24 hr 01/28/21 12:25: Chlamy pneumoniae PCR Not detected, Adenovirus (PCR) Not detected, B. pertussis DNA (PCR) Not detected, Coronavirus OC43 (PCR) Not detected, Coronavirus HKU1 (PCR) Not detected, Coronavirus 229E (PCR) Not detected, SARS-CoV-2 (PCR) Not detected, Coronavirus NL63 (PCR) Not detected, Human Metapneumovir PCR Not detected, Influenza A (H1) PCR Not detected, Influ A (H1N1/09) PCR Not detected, Influenza A (H3) PCR Not detected, Influenza Type A (PCR) Not detected, Influenza Type B (PCR) Not detected, M. pneumoniae (PCR) Not detected, Parainfluenza 1 (PCR) Not detected, Parainfluenza 2 (PCR) Not detected, Parainfluenza 3 (PCR) Not detected, Parainfluenza 4 (PCR) Not detected, RSV (PCR) Not detected, Entero/Rhino (PCR) Not detected 01/29/21 08:40: WBC 17.2 H, RBC 3.83 L, Hgb 11.2 L, Hct 33.9 L, MCV 88.5, MCH 29.3, MCHC 33.2, RDW 14.0, Plt Count 209, MPV 7.7, Neut % (Auto) 86.6 H, Lymph % (Auto) 7.0 L, [place] % (Auto) 3.0, Eos % (Auto) 3.3, Baso % (Auto) 0.1, Neut # (Auto) 14.9 H, Lymph # (Auto) 1.2, [place] # (Auto) 0.5, Eos # (Auto) 0.6 H, Baso # (Auto) 0.0, Total Counted 100, Neutrophils % (Manual) 84 H, Band Neutrophils % 1.0, Lymphocytes % (Manual) 8 L, Monocytes % (Manual) 4, Eosinophils % (Manual) 3, Platelet Estimate Normal, RBC Morphology Normal 01/29/21 08:40: Sodium 134 L, Potassium 4.9, Chloride 107, Carbon Dioxide 24, Anion Gap 7.9, BUN 38 H, Creatinine 1.40 H, Estimated Creat Clear 48, Estimated GFR 49 L, Est GFR ( Amer) 59, Glucose 190 H D, Calcium 7.3 L 01/29/21 08:40: C-Reactive Protein 50.7 H, Procalcitonin 0.054 01/29/21 12:45: ESR 57 H 01/29/21 12:45: Lactate 1.7 Medical History: Reports:: Arrhythmia, Coronary Artery Disease, Hyperlipidemia, Hypertension, Internal Pacemaker, Myocardial Infarction Denies:: Cancer, Diabetes Mellitus Type 1, Diabetes Mellitus Type 2, MRSA Assessment and Plan (1) Hx of CABG Status: Acute Category: Surgical Code(s): Z95.1 - Presence of aortocoronary bypass graft (2) Pacemaker Status: Acute Category: Medical Code(s): Z95.0 - Presence of cardiac pacemaker (3) Unsteady gait when walking Status: Acute Catego
[2021-01-29 15:21] VITALS: BP 141/59; PULSE 72; RESP 18; TEMP 36.8; O2SAT 96
--- NOTE | 2021-01-29 16:10 | PC.NURSE ---
PT IS SITTING UP IN THE CHAIR WITH FAMILY IN THE ROOM. ALERT AND ORIENTED X4. PT AMBULATED WITH PHYSICAL THERAPY THIS SHIFT. EATING AND DRINKING WELL. USING THE URINAL TO VOID. BATH AND BED CHANGE THIS SHIFT. DRESSING WAS CHANGED TO SURGICAL INCISION ON THE NECK.(TELFA/TEGADERM) PT MENTIONED THIS MORNING THAT HE WOULD LIKE TO BE ABLE TO GO HOME WITH HOME HEALTH IF AT ALL POSSIBLE. LUNG SOUNDS DIMINISHED. ABDOMEN SOFT/NON TENDER WITH ACTIVE BOWEL SOUNDS. VSS. MEDICATED FOR PAIN NEEDED PER MAR. WILL CONTINUE TO MONITOR.
[2021-01-29 17:41] LABS: Microscopic, Urine URINE MICROSCOPIC (MICROSCOPIC)
[2021-01-29 17:44] LABS: Appearance,Urine CLEAR (Clear); Bilirubin,Urine Negative (Negative); Blood, Urine 2+ (Negative); Color,Urine YELLOW (Yellow); Glucose,Urine (UA) Negative (Negative); Ketones,Urine Negative (Negative); Leukocyte Esterase,Urine Negative (Negative); Nitrate,Urine Negative (Negative); PH,Urine 5.5 (5.0-8.5); Protein,Urine Negative (Negative); Specific Gravity, Urine >= 1.030 (1.005-1.030); Urobilinogen,Urine 0.2 EU/dl (0.2)
[2021-01-29 17:54] LABS: RBC,Urine 20-50 #/hpf (0-3)
[2021-01-29 20:00] VITALS: BP 143/58; PULSE 68; RESP 16; TEMP 36.9; O2SAT 97
--- NOTE | 2021-01-30 03:20 | PC.NURSE ---
pt is A/O x4. no changes during this shift. Pt rested well at night. VSS, lungs are CTA on room air. Hollis given x1 for pain relief, with favorable results. pts able to make needs known to staff. IV patent. call light within reach, no concerns at this time.
[2021-01-30 04:00] VITALS: BP 142/62; PULSE 67; RESP 17; TEMP 36.6; O2SAT 97
[2021-01-30 05:00] VITALS: BMI 27.1
[2021-01-30 07:48] LABS: Basophils % 0.2 % (0.1-2.0); Eosinophils # 0.6 K/mm3 (0.0-0.4); Eosinophils % 4.8 % (0.1-12.0); Hematocrit 32.4 % (42.0-52.0); Hemoglobin 10.6 g/dL (14.1-18.0); Lymphocytes # 1.5 K/mm3 (0.7-4.5); Lymphocytes % 11.7 % (10-50); Mean Corpuscular HGB Conc 32.7 g/dL (31.8-35.4); Mean Corpuscular Hemoglobin 28.6 pg (27.0-31.2); Mean Corpuscular Volume 87.4 fl (80-94); Mean Platelet Volume 8.4 fl (7.4-10.4); Monocytes # 0.6 K/mm3 (0.1-1.0); Monocytes % 4.4 % (1.7-9.3); Neutrophils # 10.2 K/mm3 (1.8-7.8); Neutrophils % 78.9 % (37.0-80.0); Platelet Count 228 K/mm3 (142-424); Red Blood Count 3.71 M/mm3 (4.60-6.20); Red Cell Distribution Width 14.1 % (11.5-17.5); White Blood Count 12.9 K/mm3 (4.8-10.8)
[2021-01-30 07:55] LABS: Anion Gap 4.9 mEq/L (5-15); Blood Urea Nitrogen 37 mg/dl (9-20); Calcium 7.5 mg/dl (8.4-10.2); Carbon Dioxide 27 mmol/L (22.0-30.0); Chloride 106 mmol/L (98-107); Creatinine Clearance Estimated 55 mL/min (50-200); Estimated Glomerular Filt Rate 58 ml/min (>60); GFR (African American) 71 ML/MIN (>60); Glucose 161 mg/dl (74-100); Potassium 4.9 mmoL/L (3.5-5.1); Sodium 133 mmol/L (136-145)
[2021-01-30 08:00] VITALS: BP 134/60; PULSE 65; RESP 18; TEMP 36.6; O2SAT 94
--- NOTE | 2021-01-30 10:26 | P.PN_ITS ---
Internal Medicine - PN: Subj *Date: 01/30/21 *Time: 11:43 Interval history: pt sitting up in chair states he is doing well. pt states he sat up for 6 hours yesterday Exam Vital signs and Labs for Last 24 Hours: Temp Pulse Resp BP Pulse Ox 97.9 F 65 18 134/60 94 L 01/30/21 08:00 01/30/21 08:00 01/30/21 08:00 01/30/21 08:00 01/30/21 08:00 Laboratory Results - last 24 hr 01/29/21 08:40: C-Reactive Protein 50.7 H, Procalcitonin 0.054 01/29/21 12:45: ESR 57 H 01/29/21 12:45: Lactate 1.7 01/29/21 17:25: Urine Color Yellow, Urine Appearance Clear, Urine pH 5.5, Ur Specific [place] >= 1.030, Urine Protein Negative, Urine Glucose (UA) Negative, Urine Ketones Negative, Urine Blood 2+, Urine Nitrate Negative, Urine Bilirubin Negative, Urine Urobilinogen 0.2, Ur Leukocyte Esterase Negative, Urine RBC 20- 50, Urine WBC None, Ur Squamous Epith Cells 5-10, Urine Bacteria None 01/30/21 07:12: WBC 12.9 H, RBC 3.71 L, Hgb 10.6 L, Hct 32.4 L, MCV 87.4, MCH 28.6, MCHC 32.7, RDW 14.1, Plt Count 228, MPV 8.4, Neut % (Auto) 78.9, Lymph % (Auto) 11.7, [place] % (Auto) 4.4, Eos % (Auto) 4.8, Baso % (Auto) 0.2, Neut # (Auto) 10.2 H, Lymph # (Auto) 1.5, [place] # (Auto) 0.6, Eos # (Auto) 0.6 H, Baso # (Auto) 0.0 01/30/21 07:12: Sodium 133 L, Potassium 4.9, Chloride 106, Carbon Dioxide 27, Anion Gap 4.9 L, BUN 37 H, Creatinine 1.20, Estimated Creat Clear 55, Estimated GFR 58 L, Est GFR ( Amer) 71 D, Glucose 161 H, Calcium 7.5 L I & O for Last 24 hours: Intake & Output 01/27/21 01/28/21 01/29/21 01/30/21 11:59 11:59 11:59 11:59 Intake Total 600 / 600 960 / 960 Output Total 300 / 300 575 / 575 Balance 300 / 300 385 / 385 Weight 170 lb 173 lb 6 oz 173 lb 4 oz - Constitutional no acute distress - *Routine HEENT Exam Head: Present: normocephalic Eye: Present: PERRL ENT: Present: mucous membranes moist - *Routine Neck Exam Present: supple. Absent: lymphadenopathy - *Routine Respiratory Exam Present: CTA bilaterally - *Routine Cardiovascular Exam Present: RRR - *Routine Abdominal Exam Present: soft, normoactive bowel sounds. Absent: tenderness - *Routine Extremities Exam Absent: cyanosis, clubbing, edema - *Routine Skin Exam Present: warm. Absent: rash Comments: dressing to back pf neck - *Routine Neurological Exam Present: alert, oriented X3 - Routine Psychiatric Exam Present: normal affect Assessment and Plan (1) Hx of CABG Status: Acute Category: Surgical Code(s): Z95.1 - Presence of aortocoronary bypass graft (2) Pacemaker Status: Acute Category: Medical Code(s): Z95.0 - Presence of cardiac pacemaker (3) Unsteady gait when walking Status: Acute Category: Medical Code(s): R26.81 - Unsteadiness on feet (4) Postoperative pain Status: Acute Category: Medical Code(s): G89.18 - Other acute postprocedural pain - Assessment and plan all Dx Assessment and Plan for all problems:: rounded with dr wilcox all orders per dr tolentino continue antibiotics due to hx of mrsa after pacemaker placement and elevated wbc echo in am
--- NOTE | 2021-01-30 14:02 | PC.NURSE ---
PT AOX4, HE HAS RESTED IN BED T/O SHIFT, USES URINAL INDEPENDENTLY, HAS C/O PAIN AND WAS TREATED WITH PRN NORCO PER MAR WITH GOOD EFFECTIVENESS, VS HAS REMAINED STABLE, TOLERATING PO INTAKE WELL, ABD IS SOFT AND NON-TENDER, DENIES N/V/D.
[2021-01-30 16:00] VITALS: BP 146/63; PULSE 66; RESP 22; O2SAT 98
[2021-01-30 20:00] VITALS: BP 136/80; PULSE 60; RESP 16; TEMP 36.9; O2SAT 96
--- NOTE | 2021-01-31 02:52 | PC.NURSE ---
A&OX4. PT TOLERATING RA WELL. PT C/O PAIN IN LOWER BACK X1 THIS SHIFT, TX WITH PRN MORPHINE. ON REASSESMENT PT RESTING IN BED WITH EYES CLOSED. NO OTHER C/O THUS FAR. VSS WILL CONTINUE TO MONITOR.
[2021-01-31 04:00] VITALS: BP 135/70; PULSE 65; RESP 24; TEMP 36.4; O2SAT 97
[2021-01-31 05:00] VITALS: BMI 26.7
[2021-01-31 07:21] LABS: Chloride 102 mmol/L (98-107); Potassium 4.6 mmoL/L (3.5-5.1); Sodium 133 mmol/L (136-145)
[2021-01-31 07:24] LABS: Anion Gap 8.6 mEq/L (5-15); Basophils # 0.1 K/mm3 (0-0.2); Basophils % 0.4 % (0.1-2.0); Blood Urea Nitrogen 29 mg/dl (9-20); Calcium 7.9 mg/dl (8.4-10.2); Carbon Dioxide 27 mmol/L (22.0-30.0); Creatinine Clearance Estimated 55 mL/min (50-200); Eosinophils # 0.5 K/mm3 (0.0-0.4); Eosinophils % 4.2 % (0.1-12.0); Estimated Glomerular Filt Rate 58 ml/min (>60); GFR (African American) 71 ML/MIN (>60); Glucose 148 mg/dl (74-100); Hematocrit 31.6 % (42.0-52.0); Hemoglobin 10.6 g/dL (14.1-18.0); Lymphocytes # 1.4 K/mm3 (0.7-4.5); Lymphocytes % 10.9 % (10-50); Mean Corpuscular HGB Conc 33.4 g/dL (31.8-35.4); Mean Corpuscular Hemoglobin 28.8 pg (27.0-31.2); Mean Corpuscular Volume 86.1 fl (80-94); Mean Platelet Volume 8.7 fl (7.4-10.4); Monocytes # 0.7 K/mm3 (0.1-1.0); Monocytes % 5.3 % (1.7-9.3); Neutrophils # 10.2 K/mm3 (1.8-7.8); Neutrophils % 79.2 % (37.0-80.0); Platelet Count 237 K/mm3 (142-424); Red Blood Count 3.67 M/mm3 (4.60-6.20); White Blood Count 12.8 K/mm3 (4.8-10.8)
[2021-01-31 08:00] VITALS: BP 131/55; PULSE 69; RESP 16; TEMP 36.7; O2SAT 95
--- NOTE | 2021-01-31 08:00 | CA_ITS ---
APPROVED REPORT EXAM: Comprehensive 2D, Doppler, and color-flow Echocardiogram Front Desk Specialist: NORBERTO Jiménez, RVS Ht: 5 ft 6 in Wt: 173lbs BSA: 1.88 BP: 134/68 mmHg Indications: post op neck surgery pain, CABG, Pacer, old ME Echo Enhancing Agent Comments: Low parasternal windows-no short axis images, best exam possible 2D Dimensions IVSd 1.07 cm LA Volume 35.90 mL PWd 1.07 cm LA Volume Index 19.10 mL/m2 (M/F) 16-34 LVDd 3.40 cm M: 4.2 - 5.9 LVDs 2.20 cm M: 2.5 - 4.0 Aortic Root 3.11 cm Left Atrium 3.60 cm LVOT 1.71 cm (M/F) 1.5-2.5 M-Mode Dimensions TAPSE 2.09 (<1.7) LV Diastology E Decel Time 350.00 (160-240 msec) E/A Ratio 0.92 MED E' 6.40 (< 7 cm/sec) MED A' 8.60 cm/s E'/MED E' Ratio 15.03 (>14) LAT E' 10.20 (<10 cm/sec) LAT A' 6.10 cm/s E/LAT E' Ratio 9.43 (>14) Aortic Valve LVOT Max 120.00 (70-110 cm/s) LVOT VTI 24.05 cm AoV Peak Twin. 143.00 (50-130 cm/s) AO Peak GR. 8.20 mmHg AO Mean GR. 4.00 (<5 mmHg) AO VTI 30.18 (18-25 cm) JESSE (VTI) 1.83 (2.5-4.5 cm2) Mitral Valve MV A Velocity 104.00 (40-130 cm/s) E/A Ratio 0.92 MV Decel. Time 350.00 (160-240 ms) Tricuspid Valve TR P. Velocity 227.00 cm/s RAP Estimate 10.00 mmHg RVSP 30.50 mmHg Left Ventricle Left atrium is mildly enlarged, left ventricle is normal size, mild concentric left ventricular hypertrophy, visually estimated ejection fraction 55% with no regional wall motion abnormality, grade 1 diastolic dysfunction seen without tissue Doppler evidence of raise left atrial pressure. Right Ventricle Right atrium and right ventricle are normal size and contractility. There is pacemaker lead seen in the right ventricle. Aortic Valve Aortic valve is minimally thickened and calcified, there is no aortic stenosis or aortic insufficiency. Mitral Valve Mitral valve is grossly normal, there is mild mitral regurgitation. Tricuspid Valve Tricuspid grossly normal, there is mild tricuspid regurgitation, tricuspid regurgitation jet velocity is inadequate for calculation of the right ventricular systolic pressure. Pulmonic Valve Pulmonic valve is poorly visualized. Great Vessels Aortic root is normal size. Pericardium No significant pericardial effusion noted. Conclusion 1. Mildly enlarged left atrium, normal left ventricular size, mild concentric left ventricular hypertrophy, visually estimated ejection fraction 55% with no regional wall motion abnormality, grade 1 diastolic dysfunction seen without tissue Doppler evidence of raise left atrial pressure. 2. Mild mitral and tricuspid regurgitation. 3. No significant pericardial effusion noted. Electronically signed by : Jonas Bay, 01/31/2021 19:03:44
--- NOTE | 2021-01-31 10:20 | SW/DCPLANNER ---
Addendum entered by [facility] 02/01/21 10:43: I have informed family of discharge plan and they will transport this patient to [facility]. Addendum entered by [facility] 02/01/21 10:39: This patient can discharge to [facility] today. Per Irma with [facility] patient will be admitted to SCU (Spinal Cord Unit) under Dr Ferguson. Addendum entered by [facility] 02/01/21 09:46: Currently waiting to hear from Irma with [facility] regarding admission for today. Addendum entered by [facility] 01/31/21 15:18: This patient has been approved by Irma at [facility]. Irma will follow up with me in the AM regarding bed availability. I will follow up with family today regarding situation. Addendum entered by [facility] 01/31/21 13:09: Irma with [facility] is reviewing patient information. Original Note: I spoke with patient/family regarding discharge plans this morning. Patient was recently admitted to [facility] discharged and went to [facility]. Family stated they were not happy with care from [facility] (Briana with [facility] stated that family left due to having semi private room and not private) and came to [facility] ED. Patient was admitted to [facility] on 01/28 and did not want to return to [facility]. Family is interested in placement at [facility] and specifically stated they would discharge to any [facility] level of care. I explained to family that [facility] is extensive rehab and patient would need to participate with therapy 3-4 hours a day. Family stated they understood and would prefer to try [facility]. I also explained to family that they would need to have a backup plan incase if [facility] could not accept. Family stated they understood. Patient information has been faxed to Irma [facility]. I will continue to follow up with Irma and patient/family until medically stable for discharge.
--- NOTE | 2021-01-31 10:22 | HMH.ACPN2 ---
Internal Medicine - PN: Subj *Date: 01/31/21 *Time: 18:05 Interval history: 80-year-old male patient sitting up in bed tolerating breakfast without any difficulty, at bedside. He reports he had a good evening denies any pain or shortness of breath, daughter arrives in room and questions answered. community development planner planning to contact [facility] for future discharge Exam Vital signs and Labs for Last 24 Hours: Temp Pulse Resp BP Pulse Ox 98.0 F 69 16 131/55 L 95 01/31/21 08:00 01/31/21 08:00 01/31/21 08:00 01/31/21 08:00 01/31/21 08:00 Laboratory Results - last 24 hr 01/31/21 06:43: WBC 12.8 H, RBC 3.67 L, Hgb 10.6 L, Hct 31.6 L, MCV 86.1, MCH 28.8, MCHC 33.4, RDW 14.0, Plt Count 237, MPV 8.7, Neut % (Auto) 79.2, Lymph % (Auto) 10.9, [place] % (Auto) 5.3, Eos % (Auto) 4.2, Baso % (Auto) 0.4, Neut # (Auto) 10.2 H, Lymph # (Auto) 1.4, [place] # (Auto) 0.7, Eos # (Auto) 0.5 H, Baso # (Auto) 0.1 01/31/21 06:43: Sodium 133 L, Potassium 4.6, Chloride 102, Carbon Dioxide 27, Anion Gap 8.6, BUN 29 H, Creatinine 1.20, Estimated Creat Clear 55, Estimated GFR 58 L, Est GFR ( Amer) 71, Glucose 148 H, Calcium 7.9 L I & O for Last 24 hours: Intake & Output 01/28/21 01/29/21 01/30/21 01/31/21 23:59 23:59 23:59 23:59 Intake Total 240 / 240 960 / 960 1250 / 1250 260 / 260 Output Total 300 / 300 575 / 575 275 / 275 Balance 240 / 40 660 / 660 675 / 675 -15 / -15 Weight 175 lb 2 oz 173 lb 6 oz 173 lb 4 oz 170 lb 9 oz - Constitutional no acute distress - *Routine HEENT Exam Head: Present: normocephalic Eye: Present: EOMI ENT: Present: mucous membranes moist - *Routine Neck Exam Present: trachea midline, tracheal deviation - *Routine Respiratory Exam Present: CTA bilaterally. Absent: accessory muscle use - *Routine Cardiovascular Exam Present: RRR - *Routine Abdominal Exam Present: soft, normoactive bowel sounds. Absent: tenderness, rigid - *Routine Extremities Exam Present: full ROM, pulses intact. Absent: cyanosis, clubbing, edema, calf tenderness - *Routine Skin Exam Present: dry, lesions, wounds. Absent: cyanosis, erythema Comments: Drsg to neck C/D/I - *Routine Neurological Exam Present: alert, oriented X3. Absent: motor deficit, altered mental status - Routine Psychiatric Exam Present: normal affect, normal thought process. Absent: visual hallucinations, agitated Assessment and Plan (1) Hx of CABG Status: Acute Category: Surgical Code(s): Z95.1 - Presence of aortocoronary bypass graft (2) Pacemaker Status: Acute Category: Medical Code(s): Z95.0 - Presence of cardiac pacemaker (3) Unsteady gait when walking Status: Acute Category: Medical Code(s): R26.81 - Unsteadiness on feet (4) Postoperative pain Status: Acute Category: Medical Code(s): G89.18 - Other acute postprocedural pain - Assessment and plan all Dx Assessment and Plan for all problems:: Rounded with Dr. Sheikh, all orders per Dr. Sheikh: 1. Continue current medical regimen 2. City Recorder to contact [facility] for future discharge 3. We will stop vancomycin
--- NOTE | 2021-01-31 10:31 | HMH.OTEV ---
OT Inpatient Evaluation Rehab OT IP Evaluation Start: 01/28/21 16:31 Freq: ONCE Status: Complete Protocol: Document 01/31/21 10:27 [facility] (Rec: 01/31/21 10:31 [facility] [id number]) Rehab OT IP Assessment Subjective History Pt oriented x 3. Pt was admitted via ED on 01/28/21 due to post op pain. Pt has surgery on his neck last Saturday and went to [facility] for short term rehab placement. Pt has a pat medical history of Arrythmia, Hyperlipidemia, HTN, Internal pacemaker, and [place]. Pt reports prior to surgery he lived at home with his . Pt claims he required assistance with ADLs such a dressing and bathing. Pt was dependent upon for completion of all IADL's. Pt did use walker prior to surgery. Subjective I needed help before. Objective Patient Orientation Person,Place,Birthday Upper Extremity Gross ROM WFL Bed Mobility bed mobility-scooting,bed mobility - supine/sit,bed mobility - rolling Assist Level Minimal x 1 (25% assist) Transfer Training Sit/Stand Transfer Assist Level Minimal x 1 (25% assist) Performing Toilet Hygiene Ability Assistance X1 Overall Commode/Toilet Transfer Ability Assistance x1 Commode/Toilet Transfer Technique Sit to/from Ambulatory Rehab OT IP prob,goals,plan Problems Date of Evaluation: 01/31/21 OT IP Problems Bed Mobility,Transfers,Gait, Balance,Self care,Safety Rehab Potential Rehab Potential Good Equipment Needs Assistive Devices Rolling / Wheeled Walker Plan OT intervention Plan Bed Mobility,Transfers,Gait, Balance,Self care,Safety, Therapeutic Exercise OT Plan Frequency BID Duration LOS Discharge Goals Bed Mobility Ability Standby Assistance Sit to Stand Chair Transfer Ability Contact Guard/Hand Hold Chair Transfer Ability Contact Guard/Hand Hold Chair Transfer Technique Sit to/from Ambulatory Chair Transfer Assistive Devices Rolling Walker Lower Body Dressing Ability Assistance X1 Upper Body Dressing Ability Standby Assistance Bathing Ability Assist
[2021-01-31 15:37] VITALS: BP 126/57; PULSE 65; RESP 15; TEMP 36.8; O2SAT 96
--- NOTE | 2021-01-31 18:32 | PC.NURSE ---
PT IS RESTING IN BED. TOLERATED SITTING UP IN THE CHAIR FOR SEVERAL HOURS THIS AFTERNOON. PT HAS BEEN AMBULATING WITH THE WALKER AND 1 ASSIST. FAMILY IS WANTING PT TO GO TO [facility] FOR THERAPY AND THEY ARE TOTALLY AGAINST GOING TO ANY [facility]. FAMILY DOES NOT FEEL LIKE HOME [facility] WOULD BE A GOOD OPTION B/C PT'S IS UNABLE TO CARE FOR PT AT THIS TIME DUE TO WEAKNESS. IV TO LFA INFILTRATED DURING VANCOMYCIN INFUSION THIS MORNING. NEW IV ACCESS NOTED TO RFA. LUNG SOUNDS CLEAR. ABDOMEN SOFT/NON TENDER WITH ACTIVE BOWEL SOUNDS. VSS. EATING AND DRINKING WELL. WILL CONTINUE TO MONITOR.
[2021-01-31 20:00] VITALS: BP 162/53; PULSE 63; RESP 20; TEMP 36.6; O2SAT 94
--- NOTE | 2021-02-01 03:10 | PC.NURSE ---
A&OX4. TOLERATING RA WELL. PT C/O PAIN TO BACK OF NECK AT BEGINNING OF SHIFT, GIVEN THIRD NORCO OF THE DAY. ON REASSESSMENT PT RESTING IN BED WITH EYES CLOSED. PT SLEEPING MAJORITY OF SHIFT. VSS WILL CONTINUE TO MONITOR.
[2021-02-01 04:00] VITALS: BP 145/69; PULSE 63; RESP 18; TEMP 36.6; O2SAT 97
[2021-02-01 05:00] VITALS: BMI 26.9
[2021-02-01 07:32] LABS: Anion Gap 6.4 mEq/L (5-15); Blood Urea Nitrogen 32 mg/dl (9-20); Calcium 8.2 mg/dl (8.4-10.2); Carbon Dioxide 30 mmol/L (22.0-30.0); Chloride 103 mmol/L (98-107); Creatinine Clearance Estimated 51 mL/min (50-200); Estimated Glomerular Filt Rate 53 ml/min (>60); GFR (African American) 64 ML/MIN (>60); Glucose 149 mg/dl (74-100); Potassium 5.4 mmoL/L (3.5-5.1); Sodium 134 mmol/L (136-145)
[2021-02-01 07:40] LABS: Basophils % 0.3 % (0.1-2.0); Eosinophils # 0.5 K/mm3 (0.0-0.4); Eosinophils % 4.2 % (0.1-12.0); Hematocrit 32.7 % (42.0-52.0); Hemoglobin 10.8 g/dL (14.1-18.0); Lymphocytes # 1.9 K/mm3 (0.7-4.5); Lymphocytes % 16.6 % (10-50); Mean Corpuscular HGB Conc 32.9 g/dL (31.8-35.4); Mean Corpuscular Hemoglobin 28.9 pg (27.0-31.2); Mean Corpuscular Volume 87.9 fl (80-94); Mean Platelet Volume 7.7 fl (7.4-10.4); Monocytes # 0.8 K/mm3 (0.1-1.0); Monocytes % 6.7 % (1.7-9.3); Neutrophils # 8.4 K/mm3 (1.8-7.8); Neutrophils % 72.2 % (37.0-80.0); Platelet Count 272 K/mm3 (142-424); Red Blood Count 3.72 M/mm3 (4.60-6.20); Red Cell Distribution Width 14.2 % (11.5-17.5); White Blood Count 11.6 K/mm3 (4.8-10.8)
[2021-02-01 08:00] VITALS: BP 129/70; PULSE 68; RESP 17; TEMP 36.8; O2SAT 94
--- NOTE | 2021-02-01 11:32 | HMH.DCSUM ---
General - General Admission date:: 01/28/21 Discharge date: 02/01/21 HPI HPI: 80 yr old male presented to ED via ambulance [place] [facility] [place]. Patient report numerous back surgeries, prior CABG,pacemaker and accident at work numerous years ago. Patient states that he had fusion surgery on his neck at [facility] on Saturday 3 days ago for neck pain. pt states neck pain the same now as prior to surgery but the numbness and tingling has increased since surgery. 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 [place] Patient states he arrived at replaced by [facility] yesterday and since being there he has not received good care and wishes not to return there. Patient states he was hungry, cold, wet in urine, and has not been given any pain medicine until this morning. Patient states after receiving pain meds his pain improved. His pain now is about 8-10/10, earlier it was 12/10. He says he also is supposed to be on gabapentin and he has not received any. He also is not happy because he will not receive therapy until Saturday. He does not want to return to the intermediate. Patient admitted for pain control and rehab placement Hospital Course Hospital Course: 80 yr old male presented to ED via ambulance from [facility] [place]. Patient report numerous back surgeries, prior CABG,pacemaker and accident at work numerous years ago. Patient states that he had fusion surgery on his neck at [facility] on Saturday 3 days ago for neck pain. pt states neck pain the same now as prior to surgery but the numbness and tingling has increased since surgery. 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 [place]. Patient states he arrived at replaced by [facility] yesterday and since being there he has not received good care and wishes not to return there. 01/29/21 CXR: Lungs: The lungs are hyperinflated, consistent with underlying small airways disease. Atelectatic changes noted within the lung bases. Pleural spaces: Unremarkable. No pleural effusion. No pneumothorax. Heart/Mediastinum: Unremarkable. No cardiomegaly. Bones/joints: Postoperative changes of the thoracic spine. IMPRESSION: 1. The lungs are hyperinflated, consistent with underlying small airways disease. 2. Atelectatic changes noted within the lung bases. Electronically signed by Martinez Delacruz 01/31/21 ECHO: Conclusion 1. Mildly enlarged left atrium, normal left ventricular size, mild concentric left ventricular hypertrophy, visually estimated ejection fraction 55% with no regional wall motion abnormality, grade 1 diastolic dysfunction seen without tissue Doppler evidence of raise left atrial pressure. 2. Mild mitral and tricuspid regurgitation. 3. No significant pericardial effusion noted. Electronically signed by : Jonas Bay, Lab work today white blood cell count 11.6, H/H 10.8/32.7 Sodium 134, potassium 5.4, BUN 32, creatinine 1.3 UA negative Respiratory PCR negative 80-year-old male patient sitting up in chair at side of bed resting quietly, he denies any chest pain or respiratory difficulties during the night. Discussed possible discharge to [facility] today he is agreement with this and denies any other concerns/needs at this time. PLAN: 1. We will discharge to [facility] rehab facility Objective Vital signs: Temp Pulse Resp BP Pulse Ox 98.2 F 68 17 129/70 94 L 02/01/21 08:00 02/01/21 08:00 02/01/21 08:00 02/01/21 08:00 02/01/21 08:00 no acute distress - *Routine HEENT Exam Head: Present: normocephalic Eye: Present: EOMI ENT: Present: mucous membranes moist - *Routine Neck Exam Present: trachea midline. Absent: tracheal deviation - *Routine Respiratory Exam Present: CTA bilaterally. Absent: a
--- NOTE | 2021-02-01 12:48 | PC.NURSE ---
late entry: attempted to call report to [facility]. No staff available to take report at this time. will call back. [phone]
== END 2021-02-01 13:30 ==
LOC: ER 12:28 → 2ND 14:14
PROVIDERS: Nurse Practitioner Family; Admitting Provider Emergency Medicine; Emergency Provider Emergency Medicine; PCP Family Medicine; Visit Provider Emergency Medicine
DX: G89.18 Other acute postprocedural pain (principal); Z87.891 Personal history of nicotine dependence; E78.5 Hyperlipidemia, unspecified; I10 Essential (primary) hypertension; I25.2 Old myocardial infarction; Z95.0 Presence of cardiac pacemaker; M19.90 Unspecified osteoarthritis, unspecified site; R26.81 Unsteadiness on feet; K21.9 Gastro-esophageal reflux disease without esophagitis; N40.0 Benign prostatic hyperplasia without lower urinary tract symptoms
CPT/HCPCS: 36415; 71045; 80048; 81001; 83605; 84145; 85007; 85025; 85651; 86140; 87040; 87581; 87633; 87798; 93306; 96374; 96375; 97110; 97116; 97161; 97166; 99283; G0378; J2405; J3370

== ENCOUNTER 2022-04-22 17:40 | Observation (INO) | payer MEDICARE, OTHER, SELFPAY ==
[2022-04-22] VITALS (13 sets, daily range): BP systolic 165–199; BP diastolic 70–99; PULSE 67–75; RESP 14–20; TEMP 36.7–36.9; O2SAT 97–98; BMI 24.9; BMI 26.8
--- NOTE | 2022-04-22 18:00 | ECG_ITS ---
APPROVED REPORT Exam: Resting ECG HR:67 bpm ECG Measurements Heart Rate 67 AXES IA 179 P 64 QRSd 78 QRS 48 QT 420 T 121 QTc [address] DEVIATION AND MODERATE T-WAVE ABNORMALITY, CONSIDER ANTEROLATERAL ISCHEMIA [-0.1+ mV T-WAVE IN V3-V6] ABNORMAL ECG UNCONFIRMED REPORT Electronically signed by : Manohar Bernal MD 04/24/2022 21:29:59
--- NOTE | 2022-04-22 18:17 | XR_ITS ---
PROCEDURE INFORMATION: Exam: XR Chest Exam date and time: 04/22/22 06:31 PM Age: 81 years old Clinical indication: Cough and fever; Additional info: SOB, cough TECHNIQUE: Imaging protocol: Radiologic exam of the chest. Views: 1 view. COMPARISON: CR XR CHEST PORTABLE 01/29/21 12:24 PM FINDINGS: Tubes, catheters and devices: Right subclavian pacemaker leads in good position. Lungs: Unremarkable. No consolidation. Pleural spaces: Unremarkable. No pleural effusion. No pneumothorax. Heart/Mediastinum: CABG changes. Bones/joints: Posterior fusion C-spine. Internal fixation thoracolumbar spine. IMPRESSION: 1. Posterior fusion C-spine. 2. Right subclavian pacemaker leads in good position. 3. CABG changes. 4. Internal fixation thoracolumbar spine.
--- NOTE | 2022-04-22 18:21 | PC.NURSE ---
Attempted iv twice and was unsuccessful. Lynette B RN at bedside now attempting.
--- NOTE | 2022-04-22 18:24 | PC.NURSE ---
Radiology at BS for portable chest xray
--- NOTE | 2022-04-22 18:42 | PC.NURSE ---
attempted IV x3 with success of 3rd time. 22 IV placed in right hand, labs drawn and sent to lab
[2022-04-22 18:57] LABS: Basophils # 0.1 K/mm3 (0-0.2); Basophils % 0.5 % (0.1-2.0); Eosinophils # 0.1 K/mm3 (0.0-0.4); Eosinophils % 1.2 % (0.1-12.0); Hematocrit 41.4 % (42.0-52.0); Hemoglobin 13.4 g/dL (14.1-18.0); Lymphocytes # 1.7 K/mm3 (0.7-4.5); Lymphocytes % 14.7 % (10-50); Mean Corpuscular HGB Conc 32.4 g/dL (31.8-35.4); Mean Corpuscular Hemoglobin 29.6 pg (27.0-31.2); Mean Corpuscular Volume 91.4 fl (80-94); Mean Platelet Volume 8.3 fl (7.4-10.4); Monocytes # 0.6 K/mm3 (0.1-1.0); Monocytes % 5.5 % (1.7-9.3); Neutrophils # 8.9 K/mm3 (1.8-7.8); Neutrophils % 78.2 % (37.0-80.0); Platelet Count 246 K/mm3 (142-424); Red Blood Count 4.53 M/mm3 (4.60-6.20); Red Cell Distribution Width 13.6 % (11.5-17.5); White Blood Count 11.4 K/mm3 (4.8-10.8)
[2022-04-22 19:01] LABS: Alanine Aminotransferase 40 U/L (12-78); Albumin Level 4.5 g/dl (3.5-5.0); Albumin/Globulin Ratio 1.6 (1.1-1.8); Alkaline Phosphatase 113 U/L (38-126); Anion Gap 12.7 mEq/L (5-15); Aspartate Amino Transferase 63 U/L (17-59); Blood Urea Nitrogen 23 mg/dl (9-20); Calcium 9.4 mg/dl (8.4-10.2); Carbon Dioxide 22 mmol/L (22.0-30.0); Chloride 108 mmol/L (98-107); Creatinine Clearance Estimated 42 mL/min (50-200); Estimated Glomerular Filt Rate 53 ml/min (>60); GFR (African American) 64 ML/MIN (>60); Globulin 2.8 g/dL (1.3-3.2); Glucose 153 mg/dl (74-100); Lactic Acid 1.6 mmol/L (0.7-2.1); Potassium 4.7 mmoL/L (3.5-5.1); Sodium 138 mmol/L (136-145); Total Protein,Serum 7.3 g/dl (6.3-8.2)
--- NOTE | 2022-04-22 19:04 | CT_ITS ---
PROCEDURE INFORMATION: Exam: CT Head Without Contrast Exam date and time: 04/22/22 07:14 PM Age: 81 years old Clinical indication: Altered mental status/memory loss; Confusion or disorientation; Patient HX: Patient fell in his garden, confusion, AMS at this time. TECHNIQUE: Imaging protocol: Computed tomography of the head without contrast. Radiation optimization: All CT scans at this facility use at least one of these dose optimization techniques: automated exposure control; mA and/or kV adjustment per patient size (includes targeted exams where dose is matched to clinical indication); or iterative reconstruction. COMPARISON: CT HEAD/BRAIN WO CON 01/21/20 10:37 AM FINDINGS: Brain: Periventricular and subcortical small vessel ischemic changes. Mild atrophy associated. No acute hemorrhage, mass effect, midline shift, or extra-axial fluid collection. Cerebral ventricles: No ventriculomegaly. Paranasal sinuses: Visualized sinuses are unremarkable. No fluid levels. Mastoid air cells: Visualized mastoid air cells are well aerated. Bones/joints: Unremarkable. No acute fracture. Soft tissues: Unremarkable. IMPRESSION: No acute intracranial abnormality.
--- NOTE | 2022-04-22 19:15 | PC.NURSE ---
Pt is currently resting in bed comfortably. Patient was given a warm blanket and verbalized no complaints.
[2022-04-22 19:21] LABS: Magnesium 1.7 mg/dl (1.6-2.3)
--- NOTE | 2022-04-22 19:24 | PC.NURSE ---
attempted to do med list, daughter is unsure of his meds and pt is unable to give med list at this time.
--- NOTE | 2022-04-22 19:27 | HMH.EDGENADL ---
ED Disposition Clinical Impression: Altered mental status Qualifiers: Altered mental status type: disorientation Qualified Code(s): R41.0 - Disorientation, unspecified Disposition: Admitted As Inpatient Condition on Discharge: Fair Referrals: David Crain MD [Primary Care Provider] - - Critical Care Critical Care Time: No Attestation: On 04/22/22, the high probability of a clinically significant, sudden or life threatening deterioration of the following system(s) required my full and direct attention, intervention and personal management. The time I documented below is in addition to time spent performing reported procedures but includes the following listed in this critical care notation. Medical Decision Making - Aron Inquiry Pt receiving controlled substance: No Vital Signs: 04/22/22 17:50 04/22/22 18:05 04/22/22 18:33 Temperature 98.5 F Temperature Source Oral Pulse Rate 70 Pulse Rate [Right Radial] 67 Respiratory Rate 14 15 Blood Pressure 183/84 H 168/77 H Blood Pressure [Right Arm] 199/79 H Blood Pressure Mean 137 136 Blood Pressure Mean [Right Arm] 119 Blood Pressure Source [Right Arm] Automatic Cuff Blood Pressure Position [Right Arm] Supine 02 Sat by Pulse Oximetry 98 97 Oxygen Delivery Method Room Air Room Air - Lab Data Lab Results 04/22/22 18:35: WBC 11.4 H, RBC 4.53 L, Hgb 13.4 L, Hct 41.4 L, MCV 91.4, MCH 29.6, MCHC 32.4, RDW 13.6, Plt Count 246, MPV 8.3, Neut % (Auto) 78.2, Lymph % (Auto) 14.7, Spalding % (Auto) 5.5, Eos % (Auto) 1.2, Baso % (Auto) 0.5, Neut # (Auto) 8.9 H, Lymph # (Auto) 1.7, Spalding # (Auto) 0.6, Eos # (Auto) 0.1, Baso # (Auto) 0.1 04/22/22 18:35: Sodium 138, Potassium 4.7, Chloride 108 H, Carbon Dioxide 22, Anion Gap 12.7, BUN 23 H, Creatinine 1.30 H, Estimated Creat Clear 42, Estimated GFR 53 L, Est GFR ( Amer) 64, Glucose 153 H, Calcium 9.4, Total Bilirubin 1.0, AST 63 H, ALT 40, Alkaline Phosphatase 113, Total Protein 7.3, Albumin 4.5, Globulin 2.8, Albumin/Globulin Ratio 1.6 04/22/22 18:35: Lactate 1.6 04/22/22 18:35: Troponin I 0.02, NT-Pro-B Natriuret Pep 388 04/22/22 18:35: Magnesium 1.7 04/22/22 18:35: Total Creatine Kinase 736 H* Result diagrams: 04/22/22 18:35 04/22/22 18:35 Orders (Tests/Meds): ED MEDICATIONS Generic Name Dose Route Start Last Admin Trade Name Freq PRN Reason Stop Dose Admin Lisinopril 5 mg 04/22/22 19:04 Lisinopril 5mg Tablet PO 05/22/22 19:03 DAILY ELIZABETH ORDERS Category Date Time Status Creatine Kinase Stat Lab 04/22/22 18:35 Results T4 (Thyroxine) Stat Lab 04/22/22 18:35 Results Thyroid Stimulating Hormone Stat Lab 04/22/22 18:35 Results Troponin I Q3H Lab 04/22/22 22:15 Ordered Troponin I Q3H Lab 04/23/22 01:15 Ordered Urinalysis and Microscopic Stat Lab 04/22/22 19:26 Ordered Blood Culture Stat Micro 04/22/22 18:17 Received Urine Culture Stat Micro 04/22/22 19:26 Ordered Venous Blood Gas Stat RT 04/22/22 19:03 Ordered Medical Decision Narrative: This is an 81-year-old male with history of CAD status post CABG, hypertension, COPD on home oxygen who is presenting with altered mental status. On arrival, patient hemodynamically stable, alert, oriented only to person, moving all extremities spontaneously, pupils equal and reactive to light, GCS 15. Differential includes intoxication, withdrawal, electrolyte disturbance, vascular pathology, infection, hypoxemia, vasculitic, seizure, stroke, endocrinologic, traumatic, intracranial mass, among others. Work-up significant for Leukocytosis 11. Stable kidney function, negative lactate, magnesium, troponin, BNP. Chest x-ray within normal limits and no evidence of airspace disease or cardiopulmonary disease. CT head without acute intracranial abnormality. VBG pending of admission. Dr. Urban contacted regarding inpatient admission for altered mental status of unknown origin. As mentally, patient to be admitted for [facility]
[2022-04-22 19:34] LABS: NT Pro Brain Natriuretic Pep. 388 pg/mL (0-450); Troponin I 0.02 ng/ml (0.00-0.034)
[2022-04-22 20:04] LABS: Creatine Kinase 736 U/L (55-170)
--- NOTE | 2022-04-22 20:11 | PC.NURSE ---
Pt was given a lisinopril 5mg as ordered. Due to pt current condition, medication was crushed and given in applesauce. Pt had no issues swallowing the apple sauce.
--- NOTE | 2022-04-22 20:15 | PC.NURSE ---
Family provided a remote control for the television. Pt is resting in bed.
[2022-04-22 20:23] LABS: T4 (Thyroxine) 10.4 ug/dl (5.53-11.0)
[2022-04-22 20:36] LABS: VBG Base Excess -5.8 mmol/L (-2.4-2.3); VBG Oxygen Saturation 98.7 % (50-70); VBG PCO2 25.9 mmol/L (35-51); VBG PH 7.46 mmol/L (7.31-7.41); VBG PO2 135.6 mmol/L (28-40); VBG Total CO2 18.8 mmol/L (23-27)
[2022-04-22 20:36] LABS: Thyroid Stimulating Hormone 0.97 uIU/mL (0.465-4.68)
[2022-04-22 20:50] LABS: Coronavirus 19, PCR Not Detected (NotDetected); Influenza A, PCR Not Detected (NotDetected); Influenza B, PCR Not Detected (NotDetected)
--- NOTE | 2022-04-22 21:31 | PC.NURSE ---
PT ARRIVED VIA W/C FROM ED @ 2664
[2022-04-22 22:36] LABS: Troponin I 0.02 ng/ml (0.00-0.034)
[2022-04-23] VITALS: BP 156/69; PULSE 70; PULSE 72; RESP 16; TEMP 36.6; O2SAT 98
[2022-04-23 00:06] LABS: Microscopic, Urine URINE MICROSCOPIC (MICROSCOPIC)
[2022-04-23 00:09] LABS: Appearance,Urine CLEAR (Clear); Bilirubin,Urine Negative (Negative); Blood, Urine Negative (Negative); Color,Urine YELLOW (Yellow); Glucose,Urine (UA) Negative (Negative); Ketones,Urine Negative (Negative); Leukocyte Esterase,Urine Negative (Negative); Nitrate,Urine Negative (Negative); PH,Urine 5.5 (5.0-8.5); Protein,Urine Negative (Negative); Specific Gravity, Urine >= 1.030 (1.005-1.030); Urobilinogen,Urine 0.2 EU/dl (0.2)
[2022-04-23 00:12] LABS: Amorphous Sediment,Urine Trace /lpf
[2022-04-23 01:59] LABS: Troponin I 0.02 ng/ml (0.00-0.034)
[2022-04-23 03:52] VITALS: BP 154/68; PULSE 66; RESP 17; TEMP 36.6; O2SAT 96
[2022-04-23 04:00] VITALS: PULSE 60
[2022-04-23 05:00] VITALS: BMI 26.8
--- NOTE | 2022-04-23 06:04 | PC.NURSE ---
Pt has rested well throughout shift. Pt was a/o to self only when arriving to floor. Reassessment this morning pt could state name, , place, and year. Pt has remained RA and tolerating well. Lung sounds CTA. Abd is soft non-tender. Pt stood with x2 assist to void using urinal. Bed alarm on for safety.
[2022-04-23 06:30] LABS: Basophils # 0.1 K/mm3 (0-0.2); Basophils % 0.9 % (0.1-2.0); Eosinophils # 0.2 K/mm3 (0.0-0.4); Eosinophils % 1.9 % (0.1-12.0); Hematocrit 40.5 % (42.0-52.0); Lymphocytes # 2.1 K/mm3 (0.7-4.5); Lymphocytes % 20.5 % (10-50); Mean Corpuscular HGB Conc 32.2 g/dL (31.8-35.4); Mean Corpuscular Hemoglobin 29.9 pg (27.0-31.2); Mean Corpuscular Volume 92.9 fl (80-94); Mean Platelet Volume 8.5 fl (7.4-10.4); Monocytes # 0.5 K/mm3 (0.1-1.0); Monocytes % 5.1 % (1.7-9.3); Neutrophils # 7.4 K/mm3 (1.8-7.8); Neutrophils % 71.6 % (37.0-80.0); Platelet Count 253 K/mm3 (142-424); Red Blood Count 4.36 M/mm3 (4.60-6.20); Red Cell Distribution Width 13.8 % (11.5-17.5); White Blood Count 10.3 K/mm3 (4.8-10.8)
[2022-04-23 06:39] LABS: Alanine Aminotransferase 33 U/L (12-78); Albumin/Globulin Ratio 1.7 (1.1-1.8); Alkaline Phosphatase 103 U/L (38-126); Anion Gap 10.9 mEq/L (5-15); Aspartate Amino Transferase 47 U/L (17-59); Blood Urea Nitrogen 26 mg/dl (9-20); Calcium 8.8 mg/dl (8.4-10.2); Carbon Dioxide 24 mmol/L (22.0-30.0); Chloride 108 mmol/L (98-107); Creatine Kinase 635 U/L (55-170); Creatinine Clearance Estimated 37 mL/min (50-200); Estimated Glomerular Filt Rate 42 ml/min (>60); GFR (African American) 51 ML/MIN (>60); Globulin 2.3 g/dL (1.3-3.2); Glucose 136 mg/dl (74-100); Potassium 3.9 mmoL/L (3.5-5.1); Sodium 139 mmol/L (136-145); Total Protein,Serum 6.3 g/dl (6.3-8.2)
[2022-04-23 06:40] LABS: Ammonia < 9 umol/L (9-30)
--- NOTE | 2022-04-23 07:36 | HMH.PHAVTE ---
[facility] VTE Monitoring - Patient Demographics Admission date: 04/23/22 Report Date: 04/23/22 Time: 07:37 Allergies/Adverse Reactions: Patient Allergies No Known Allergies Allergy (Verified 12/07/18 01:18) Height: 1.63 m Weight: 71.169 kg Patient Problems: Current Active Problems Altered mental status (Acute) - VTE Risk Labs: VTE Related Lab Results Hgb 13.0 g/dL (14.1-18.0) L 04/23/22 06:18 Hct 40.5 % (42.0-52.0) L 04/23/22 06:18 Plt Count 253 K/mm3 (142-424) 04/23/22 06:18 BUN 26 mg/dl (9-20) H 04/23/22 06:18 Creatinine 1.60 mg/dl (0.66-1.25) H D 04/23/22 06:18 Estimated Creat Clear 37 mL/min (50-200) 04/23/22 06:18 VTE Score: 7 VTE Risk Level: Moderate Risk Clinical Trial Participant: No - Prophylaxis VTE Prophylaxis Ordered?: Yes Types of VTE Prophylaxis: TEDS Knee High
[2022-04-23 08:00] VITALS: BP 122/58; PULSE 70; PULSE 72; RESP 14; TEMP 37.1; O2SAT 95
--- NOTE | 2022-04-23 09:20 | HMH.PTEV ---
Physical Therapy Evaluation Rehab PT IP Evaluation Start: 04/23/22 08:17 Freq: ONCE Status: Active Protocol: Document 04/23/22 09:15 MARCIMaritzaMERLIN (Rec: 04/23/22 09:19 PHORMERLIN [id number]) Subjective/History History History 81 yowf adm to [facility] with AMS. He reports feeling much better and is A&O x 3 at this time. He reports he lives with spouse, no steps to enter the home and has all necessary AD. Subjective Subjective Pt with no c/o this am. Rehab PT IP Eval Objective Appearance Patient Behavior Appropriate Patient Orientation Person,Place,Time Difficulty following instructions none Speech Pattern Clear Ambulation Patient Able to Ambulate Yes Ambulation Observation IP General Gait Pattern Observation No Deviations/Normal Ambulation Distance (feet) 50 Ambulation Assistive Device Rolling Walker Ambulation Ability Supervision/Stand by Balance Ability to Arise Able, uses arms to help Sitting Balance Steady, safe Standing Balance Steady, wide stance Dynamic Sitting Balance Ability Good Dynamic Standing Balance Ability Good Transfers Bed Transfer Ability Supervision/Stand by Chair Transfer Ability Supervision/Stand by Sit to Stand Bed Transfer Ability Supervision/Stand by Sit to Stand Chair Transfer Ability Supervision/Stand by Rehab PT IP prob,goals,plan Problems Date of Evaluation: 04/23/22 Discharge Plan PT Discharge Plan Pt presents at baseline for all mobility at this time. No current inpatient therapy needs and he is safe to nreturn home with family. G -code Required No Eval Complexity Eval Charge Codes 72083 - Moderate Complexity PHYSICIAN CERTIFICATION: I certify the specified therapy services for Gerhard Brady are required, authorized, and reviewed every 30 days.
--- NOTE | 2022-04-23 09:46 | HMH.OTEV ---
OT Inpatient Evaluation Rehab OT IP Evaluation Start: 04/23/22 08:17 Freq: ONCE Status: Complete Protocol: Document 04/23/22 09:41 YUALONZO (Rec: 04/23/22 09:46 CELESTEBARON [id number]) Rehab OT IP Assessment Subjective History This is an 81-year-old male with history of CAD status post CABG, hypertension, COPD on home oxygen who is presenting with altered mental status. On arrival, patient hemodynamically stable, alert, oriented only to person, moving all extremities spontaneously, pupils equal and reactive to light, GCS 15. Differential includes intoxication, withdrawal, electrolyte disturbance, vascular pathology, infection, hypoxemia, vasculitic, seizure, stroke, endocrinologic, traumatic, intracranial mass, among others. Work-up significant for Leukocytosis 11. Stable kidney function, negative lactate, magnesium, troponin, BNP. Chest x-ray within normal limits and no evidence of airspace disease or cardiopulmonary disease. CT head without acute intracranial abnormality. VBG pending of admission. Dr. Urban contacted regarding inpatient admission for altered mental status of unknown origin. As mentally, patient to be admitted for further characterization. Patient given 5 mg lisinopril and other medications held at this time. CK, TSH, T4 ordered, per recommendations of admitting team. Results were relayed to patient family who voiced understanding and were agreeable to inpatient admission and management. Patient was admitted to the [facility]
[2022-04-23 11:51] VITALS: BP 140/71; PULSE 68; RESP 16; TEMP 36.7; O2SAT 97
--- NOTE | 2022-04-23 12:43 | PC.NURSE ---
rounded on patient this morning. administered morning medications. no questions in regards to this. did educate on the medicare observation at that time. educated if patient was to stay another night then home meds would be needed. also updated on patient labs and also contacted md office to see if they could speak with family. is in [place] but per lorie ferrer; dr hassan would be back around. this was relayed to patient and visitor at bedside.
--- NOTE | 2022-04-23 13:31 | HMH.HP ---
*Admission Date: 04/23/22 <Elisa Turcios - 04/23/22 13:53> *Chief complaint: Weakness and altered mental status <Elisa Turcios 04/23/22 13:53> *History of present illness: Mr. Brady is an 81-year-old male with a history of ASCVD, primary generalized osteoarthritis, BPH, chronic pain syndrome, depressive disorder, dyslipidemia, and history of Pepcid ulcer who was brought to [facility] emergency room for evaluation by family after noting that he had a change in his mental status. Patient states he did not feel well the previous day and stayed in bed all day. He is vague about his symptoms. He denies having any chest pain or any other pains, nausea, vomiting, or diarrhea. He does not think he had a fever. He was not coughing and denies other respiratory symptoms. He does admit to periodic shortness of breath with activity. He states he gets short of breath when walking to his mailbox. With evaluation in the emergency room he was found to have an elevated white blood cell count of 11,400 lactate was normal at 1.6 his total CPK was 736 he was found to have high blood pressure and was given a dose of lisinopril. He was then admitted for further evaluation and treatment. With evaluation this morning patient denies any pain and shortness of breath. He states he not sleep at all due to not having his sleeping pill. He has just completed all of his breakfast and ate well. He denies any nausea. He has not been out of bed. <Elisa Turcios 04/23/22 13:53> [facility] History Medical History: Reports:: Arrhythmia, Atherosclerotic Heart Disease, BPH, Chronic Obstructive Pulmonary Disease (COPD), Coronary Artery Disease, Depression, Gastroesophageal Reflux Disease(GERD), Hyperlipidemia, Hypertension, Internal Pacemaker, Myocardial Infarction, Ulcer (peptic ulcer) Denies:: Cancer, Diabetes Mellitus Type 1, Diabetes Mellitus Type 2, MRSA <Elisa Turcios 04/23/22 13:53> *Have you ever received a pneumonia vaccine?: Yes <Elisa Turcios 04/23/22 13:53> *Have you received a flu vaccine this season?: No <TamElisa 04/23/22 13:53> Other Medical History: Reports: Anemia, Arthritis, Blood Transfusion Reaction, Sinus Problems <TamElisa 04/23/22 13:53> Laterality Cases: Bilateral: Other <TamElisa 04/23/22 13:53> Other Surgeries: Yes: CABG, Cholecystectomy, Pacemaker <TamElisa 04/23/22 13:53> Amputation: No <TamElisa 04/23/22 13:53> Comment: Right rotator cuff surgery; multiple lumbar surgeries; rods in thoracic spine related to injury <TamElisa Dolly 04/23/22 13:53> - *Social History Smoking Status: Former smoker <TamElisa 04/23/22 13:53> Tobacco Type: cigarettes <TamElisa 04/23/22 13:53> # Packs/Day (cigarettes): 2 <TamElisa 04/23/22 13:53> Alcohol Intake: never <TamElisa 04/23/22 13:53> Alcohol Intake Frequency:: holidays/special occasions only <TamElisa 04/23/22 13:53> *Occupational Status:: retired <TamElisa 04/23/22 13:53> Housing: house <TamElisa 04/23/22 13:53> Household Members: spouse <TamElisa 04/23/22 13:53> *Travel in the last 8 weeks: None <TamElisa 04/23/22 13:53> Family Hx:: Cancer, Coronary Artery Disease, Hypertension, Stroke <TurciosElisa 04/23/22 13:53> Review of Systems - Constitutional Reports fatigue, Reports lack of energy, Denies fever(s) <TurciosElisa 04/23/22 13:53> - Eyes Denies change in vision <Turcios,Elisa 04/23/22 13:53> - ENT Denies ear pain, Denies sore throat <Turcios,Elisa 04/23/22 13:53> - *Cardiovascular Reports shortness of breath (Exertional), Denies chest pain <Turcios,Elisa 04/23/22 13:53> - *Respiratory Reports shortness of breath (Exertional), Reports shortness of breath with activity, Denies chest congestion, Denies cough <Elisa Turcios - 04/23/22 13:53> - *Gastrointestinal Denies abdominal pain, Denies change in bowel habits, Denies change i
--- NOTE | 2022-04-23 14:15 | HMH.PHAINT ---
DISCHARGE MEDICATION COUNSELING PROVIDED TO PATIENT, PATIENT'S AND DAUGHTER. [facility] FL[facility]. DISCUSSED THE ONLY NEW MEDICATION WAS THE LEVAQUIN, WHICH IS AN ANTIBIOTIC, AND IS ONLY A SHORT-COURSE. TAKE THIS ONCE DAILY, WITH OR WITHOUT FOOD, FROM IRON AND VITAMIN D PRESCRIPTIONS BY AT LEAST 2 HOURS. WATCH FOR UPSET STOMACH, DIARRHEA, NAUSEA, OR TENDON RUPTURE. PATIENT, SPOUSE, AND DAUGHTER VERBALIZED NO QUESTIONS AT THIS TIME.
--- NOTE | 2022-04-24 10:51 | HMH.DCSUM ---
General - General Admission date:: 04/22/22 <David Crain - 04/24/22 21:29> 04/22/22 <Elisa Turcios - 04/24/22 11:09> Discharge date: 04/23/22 <Elisa Turcios - 04/24/22 11:09> HPI HPI: Mr. Brady is an 81-year-old male with a history of ASCVD, primary generalized osteoarthritis, BPH, chronic pain syndrome, depressive disorder, dyslipidemia, and history of Pepcid ulcer who was brought to [facility] emergency room for evaluation by family after noting that he had a change in his mental status. Patient stated he did not feel well the previous day and stayed in bed all day. He was vague about his symptoms. He denied having any chest pain or any other pains, nausea, vomiting, or diarrhea. He did not think he had a fever. He was not coughing and denied other respiratory symptoms. He did admit to periodic shortness of breath with activity. He stated he became short of breath when walking to his mailbox. With evaluation in the emergency room he was found to have an elevated white blood cell count of 11,400; lactate was normal at 1.6; his total CPK was 736; he was found to have high blood pressure and was given a dose of lisinopril. He was then admitted for further evaluation and treatment. With evaluation the following morning patient denied any pain and shortness of breath. He stated he not sleep at all due to not having his sleeping pill. He had just completed all of his breakfast and ate well. He denied any nausea. He had not been out of bed. <Elisa Turcios - 04/24/22 11:09> Hospital Course Hospital Course: AM after admission patient continually denied any chest pain or shortness of breath. He was eating well. He was oriented x3. Blood pressure had also improved and stabilized. He was evaluated by physical therapy and Occupational Therapy who felt he was at baseline and safe to return home. White blood cell count normalized. Troponin I's were negative. Dr. Crain noted additional history obtained from the daughter who felt that the patient had not been well for 2 to 3 days prior to admission with congestion, cough and fever. She was worried that he might have COVID when he became confused. At that time he was oriented to his name only. Also to note the patient had been off of his Flomax for about a month with increase in urinary hesitancy possibly leading to a UTI or prostatitis. Final cultures were pending at time of discharge. The daughter did fill the patient had patient had improved. He was discharged to home and placed on Levaquin and will follow up with cultures as an outpatient. He was also to restart his Flomax. <Elisa Turcios - 04/24/22 11:09> Objective Vital signs: Temp Pulse Resp BP Pulse Ox 98.0 F 68 16 140/71 97 04/23/22 11:51 04/23/22 11:51 04/23/22 11:51 04/23/22 11:51 04/23/22 11:51 <David Crain - 04/24/22 21:29> Temp Pulse Resp BP Pulse Ox 98.0 F 68 16 140/71 97 04/23/22 11:51 04/23/22 11:51 04/23/22 11:51 04/23/22 11:51 04/23/22 11:51 <Elisa Turcios - 04/24/22 11:09> Narrative: - Constitutional no acute distress <Elisa Turcios 04/23/22 13:53> Comments: Appears comfortable. He has just completed breakfast. <TurciosElisa 04/23/22 13:53> - *Routine HEENT Exam Head: Present: normocephalic, atraumatic <TurciosElisa 04/23/22 13:53> Eye: Present: PERRL. Absent: conjunctival icterus, scleral injection <TurciosElias 04/23/22 13:53> ENT: Present: mucous membranes moist, oropharynx clear <TamElisa 04/23/22 13:53> - *Routine Neck Exam Present: supple, full ROM. Absent: carotid bruit, lymphadenopathy, thyromegaly <TamElisa - 04/23/22 13:53> - *Routine Respiratory Exam Present: CTA bilaterally (Anteriorly and posteriorly) <TamElisa - 04/23/22 13:53> - *Routine Cardiovascular Exam Present: RRR <TamElisa - 04/23/22 13:53> - *Routine Abdomin
--- NOTE | 2022-04-24 14:28 | CARE MANAGER ---
Called and spoke with Mr. Brady r/t post discharge status. 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 He confirmed that he plans to attend his f/u appt with Dr. Crain on 04/30. He is feeling ok today and has no known complaints or concerns at this time.
== END 2022-04-23 14:53 | disposition home or self-care (01) ==
LOC: ER 20:06 → 2ND 20:49
PROVIDERS: Admitting Provider Family Medicine; Emergency Provider Emergency Medicine; PCP Family Medicine; Visit Provider Family Medicine
DX: R41.82 Altered mental status, unspecified (principal); I25.10 Atherosclerotic heart disease of native coronary artery without angina pectoris; M19.90 Unspecified osteoarthritis, unspecified site; N40.0 Benign prostatic hyperplasia without lower urinary tract symptoms; I10 Essential (primary) hypertension; J44.9 Chronic obstructive pulmonary disease, unspecified; Z79.899 Other long term (current) drug therapy; Z20.822 Contact with and (suspected) exposure to COVID-19; R06.09 Other forms of dyspnea
CPT/HCPCS: G0378; 36415; 70450; 71045; 80053; 81001; 82140; 82550; 82803; 83605; 83735; 83880; 84436; 84443; 84484; 85025; 87040; 87086; 93005; 97162; 97165; 99285; C9803; U0003; U0005

== ENCOUNTER → 2022-06-19 07:28 | Outpatient (CLI) | payer MEDICARE, OTHER, SELFPAY ==
--- NOTE | 2022-06-19 08:17 | CT_ITS ---
FINAL REPORT CLINICAL HISTORY: sob FINDINGS: Thin section axial CT images of the chest were obtained with contrast. 3D reformatted images were also obtained. This study was performed with techniques to keep radiation doses as low as reasonably achievable (ALARA). Individualized dose reduction techniques using automated exposure control or adjustment of mA and/or kV according to the patient's size were employed. There is no evidence of pulmonary embolism. There is no evidence of thoracic aortic aneurysm or dissection. The patient is status post median sternotomy. Right subclavian pacer is identified. There is no evidence of mediastinal or hilar mass or adenopathy. There is mild scarring and mild emphysema. There is a left upper lobe nodule measuring 8 mm. Left apical ground-glass opacities and small nodules are identified, favor inflammatory. There are several calcified granulomas. Spinal rods are seen in the lower thoracic region. The patient is status post cholecystectomy. There is a small hiatal hernia. IMPRESSION: No evidence of pulmonary embolism. Left upper lobe nodule measures 8 mm. Recommend 3 month follow-up CT. Ground-glass opacities and small nodules, favor inflammatory. Reviewed, Interpreted and Dictated by Javy Short III, MD Transcribed by Elisa Cannon Authenticated and [facility]
[2022-06-19 08:43] LABS: Blood Urea Nitrogen 26 mg/dl (9-20); Estimated Glomerular Filt Rate 45 ml/min (>60); GFR (African American) 54 ML/MIN (>60)
== END ==
PROVIDERS: PCP Family Medicine; Visit Provider Physician Assistant
DX: I25.10 Atherosclerotic heart disease of native coronary artery without angina pectoris (principal); R06.02 Shortness of breath
CPT/HCPCS: 36415; 71275; 82565; 84520; 93306; Q9967

== ENCOUNTER → 2022-11-12 17:02 | Outpatient (CLI) | payer MEDICARE, OTHER, SELFPAY ==
--- NOTE | 2022-11-12 17:23 | XR_ITS ---
PROCEDURE INFORMATION: Exam: XR Left Foot Exam date and time: 11/12/2022 5:29 PM Age: 82 years old Clinical indication: Pain; Foot; Left; Additional info: Foot pain TECHNIQUE: Imaging protocol: Radiologic exam of the left foot. Views: 3 or more views. COMPARISON: No relevant prior studies available. FINDINGS: Bones/joints: Degenerative changes in the 1st tarsal metatarsal joint and metatarsal-phalangeal joint and IP joint. There is no evidence of acute fracture.There is no evidence of malalignment or dislocation. Degenerative changes in the tarsal bones. Soft tissues: Normal. IMPRESSION: 1. Degenerative changes in the 1st tarsal metatarsal joint and metatarsal-phalangeal joint and IP joint. 2. There is no evidence of acute fracture.There is no evidence of malalignment or dislocation. 3. Degenerative changes in the tarsal bones.
--- NOTE | 2022-11-12 17:23 | XR_ITS ---
PROCEDURE INFORMATION: Exam: XR Right Foot Complete; Alignment Exam date and time: 11/12/2022 5:29 PM Age: 82 years old Clinical indication: Pain; Foot; Right; Additional info: Foot pain TECHNIQUE: Imaging protocol: Radiologic exam of the right foot. Views: 3 or more views. COMPARISON: No relevant prior studies available. FINDINGS: Bones/joints: Degenerative changes in the IP joint and metatarsal-phalangeal joint. There is no evidence of acute fracture.There is no evidence of malalignment or dislocation. Soft tissues: Normal. IMPRESSION: There is no evidence of acute fracture.There is no evidence of malalignment or dislocation.
[2022-11-12 17:32] LABS: Basophils # 0.1 K/mm3 (0-0.2); Basophils % 0.9 % (0.1-2.0); Eosinophils # 0.3 K/mm3 (0.0-0.4); Eosinophils % 3.9 % (0.1-12.0); Hematocrit 35.3 % (42.0-52.0); Hemoglobin 11.6 g/dL (14.1-18.0); Lymphocytes # 1.7 K/mm3 (0.7-4.5); Lymphocytes % 21.9 % (10-50); Mean Corpuscular HGB Conc 32.7 g/dL (31.8-35.4); Mean Corpuscular Hemoglobin 29.4 pg (27.0-31.2); Mean Corpuscular Volume 89.7 fl (80-94); Mean Platelet Volume 8.7 fl (7.4-10.4); Monocytes # 0.5 K/mm3 (0.1-1.0); Neutrophils # 5.2 K/mm3 (1.8-7.8); Neutrophils % 67.3 % (37.0-80.0); Platelet Count 287 K/mm3 (142-424); Red Blood Count 3.94 M/mm3 (4.60-6.20); Red Cell Distribution Width 14.7 % (11.5-17.5); White Blood Count 7.7 K/mm3 (4.8-10.8)
[2022-11-12 17:59] LABS: Erythrocyte Sedimentation Rate 23 mm/hr (0-20)
[2022-11-12 18:32] LABS: Chloride 108 mmol/L (98-107); Potassium 4.9 mmoL/L (3.5-5.1); Sodium 142 mmol/L (136-145)
[2022-11-12 18:35] LABS: Alanine Aminotransferase 37 U/L (12-78); Albumin Level 3.8 g/dl (3.5-5.0); Albumin/Globulin Ratio 2.2 (1.1-1.8); Alkaline Phosphatase 80 U/L (38-126); Anion Gap 13.9 mEq/L (5-15); Aspartate Amino Transferase 57 U/L (17-59); Bilirubin,Total 0.5 mg/dl (0.2-1.3); Blood Urea Nitrogen 31 mg/dl (9-20); Carbon Dioxide 25 mmol/L (22.0-30.0); Estimated Glomerular Filt Rate 42 ml/min (>60); GFR (African American) 50 ML/MIN (>60); Globulin 1.7 g/dL (1.3-3.2); Total Protein,Serum 5.5 g/dl (6.3-8.2)
[2022-11-12 18:36] LABS: Calcium 8.3 mg/dl (8.4-10.2); Glucose 90 mg/dl (74-100)
[2022-11-12 18:41] LABS: C-Reactive Protein 11.7 mg/L (0-4)
== END ==
PROVIDERS: PCP Family Medicine; Visit Provider Nurse Practitioner Family
DX: L03.031 Cellulitis of right toe (principal); L84 Corns and callosities; L57.0 Actinic keratosis; M79.673 Pain in unspecified foot; A08.11 Acute gastroenteropathy due to Norwalk agent
CPT/HCPCS: 36415; 73630; 80053; 85025; 85651; 86140

== ENCOUNTER → 2022-11-12 23:48 | Outpatient (CLI) | payer MEDICARE, OTHER, SELFPAY | PROVIDERS: PCP Family Medicine; Visit Provider Nurse Practitioner Family | DX: L03.031 Cellulitis of right toe (principal); L84 Corns and callosities | CPT/HCPCS: 36415; 73630; 80053; 85025; 85651; 86140; 87070; 87077; 87186; 87205 ==

== ENCOUNTER → 2023-03-27 10:32 | Outpatient (CLI) | payer MEDICARE, OTHER, SELFPAY ==
[2023-03-27 11:37] LABS: Chloride 108 mmol/L (98-107)
[2023-03-27 11:38] LABS: Potassium 5.6 mmoL/L (3.5-5.1); Sodium 139 mmol/L (136-145)
[2023-03-27 11:40] LABS: Alanine Aminotransferase 23 U/L (12-78); Albumin Level 3.7 g/dl (3.5-5.0); Albumin/Globulin Ratio 1.8 (1.1-1.8); Alkaline Phosphatase 109 U/L (38-126); Anion Gap 10.6 mEq/L (5-15); Aspartate Amino Transferase 27 U/L (17-59); Bilirubin,Total 0.6 mg/dl (0.2-1.3); Blood Urea Nitrogen 24 mg/dl (9-20); Calcium 8.7 mg/dl (8.4-10.2); Carbon Dioxide 26 mmol/L (22.0-30.0); Cholesterol 118 mg/dl (140-200); Estimated Glomerular Filt Rate 49 ml/min (>60); GFR (African American) 59 ML/MIN (>60); Globulin 2.1 g/dL (1.3-3.2); Glucose 113 mg/dl (74-100); Total Protein,Serum 5.8 g/dl (6.3-8.2); Triglycerides 135 mg/dl (30-150); VLDL Cholesterol 27 mg/dL (0-40)
[2023-03-27 11:41] LABS: Chol/HDL Ratio 2.5 (1-3.5); HDL Cholesterol 47 mg/dl (40-60)
== END ==
PROVIDERS: PCP Family Medicine; Visit Provider Family Medicine
DX: R73.9 Hyperglycemia, unspecified (principal); E78.5 Hyperlipidemia, unspecified
CPT/HCPCS: 36415; 80053; 80061; 83036

== ENCOUNTER 2024-01-01 19:53 | Observation (INO) | payer MEDICARE, OTHER, SELFPAY ==
[2024-01-01 19:53] VITALS: BP 137/73; PULSE 79; RESP 18; TEMP 36.8; O2SAT 100; BMI 22.9
--- NOTE | 2024-01-01 19:59 | ECG_ITS ---
APPROVED REPORT Exam: Resting ECG HR:69 bpm ECG Measurements Heart Rate 69 AXES WI 189 P 68 QRSd 73 QRS 52 QT 423 T 56 QTc 442 Conclusion SINUS RHYTHM NONSPECIFIC ST & T-WAVE ABNORMALITY Electronically signed by : LEX MARIA, 01/01/2024 23:56:05
--- NOTE | 2024-01-01 19:59 | XR_ITS ---
PROCEDURE INFORMATION: Exam: XR Chest Exam date and time: 01/01/2024 8:10 PM Age: 83 years old Clinical indication: Shortness of breath; Additional info: Altered mental status TECHNIQUE: Imaging protocol: Radiologic exam of the chest. Views: 1 view. COMPARISON: CT ANGIO CHEST PE PROTOCOL 06/19/2022 9:27 AM FINDINGS: Tubes, catheters and devices: Cardiac pulse generator leads are unchanged in position. Lungs: Unremarkable. No consolidation. Pleural spaces: Unremarkable. No pleural effusion. No pneumothorax. Heart/Mediastinum: Unremarkable. No cardiomegaly. Bones/joints: Median sternotomy. Spinal fusion hardware seen at the cervicothoracic junction and in the lower thoracic spine. IMPRESSION: No acute findings.
--- NOTE | 2024-01-01 20:13 | HMH.EDGENADL ---
Discharge Plan Disposition Patient Disposition: Admitted Clinical Impressions Clinical Impression: CAN (acute kidney injury), UTI (urinary tract infection), Encephalopathy Discharge ED Provider: Billy Lewis General Adult HPI General Chief complaint: Altered Mental Status Stated complaint: AMS Time Seen by Provider: 01/01/24 19:59 History of Present Illness HPI narrative: Please note that above description of symptoms, in this electronic medical record under categorization of recalled from ER triage doctor by RN are reflective of an initial nursing assessment, however, is not reflective of my full history and physical exam that was personally taken and clarified. Consequentially, this preceding description of symptoms, which may include the patient's categorized chief complaint in the EMR, do not reflect my personal clinical impression, and the ultimate description of history of present illness and patient stated complaints should be deferred to this section of the note. Unless stated otherwise or congruent with this section of the note, additional signs, symptoms, or incongruence should be interpreted as inaccurate with my clinical impression. Related Data Home Medications Medication Instructions Recorded Confirmed atorvastatin 80 mg tablet 80 mg PO HS Cholesterol 12/06/18 12/03/22 pantoprazole 40 mg tablet,delayed 40 mg PO HS acid reflux 12/06/18 12/03/22 release temazepam 30 mg capsule (Restoril) 30 mg PO HS sleep 12/06/18 12/03/22 cyanocobalamin (vitamin B-12) 1,000 mcg PO DAILY Supplement 01/28/21 12/03/22 1,000 mcg tablet amlodipine 5 mg tablet 5 mg PO DAILY High blood pressure 01/29/21 12/03/22 aspirin 81 mg chewable tablet 81 mg PO DAILY Heart disease 01/29/21 12/03/22 cholecalciferol (vitamin D3) 50 2,000 unit PO DAILY Supplement 01/29/21 12/03/22 mcg (2,000 unit) tablet docusate sodium 100 mg capsule 100 mg PO BIDP PRN Constipation 01/29/21 12/03/22 ferrous gluconate 324 mg (38 mg 324 mg PO DAILY Supplement 01/29/21 12/03/22 iron) tablet fluticasone propionate 50 2 spray intranasal DAILYP PRN 01/29/21 12/03/22 mcg/actuation nasal allergy symptoms spray,suspension gabapentin 600 mg tablet 600 mg PO BID nerve pain 01/29/21 12/03/22 oxycodone-acetaminophen 10 mg-325 1 tab PO Q8HP PRN PAIN 01/29/21 12/03/22 mg tablet Previous Rx's Medication Instructions Recorded levofloxacin 500 mg tablet 500 mg PO DAILY #7 tabs 04/23/22 tamsulosin 0.4 mg capsule 0.4 mg PO HS urinary retention #30 04/23/22 caps minocycline 100 mg capsule 100 mg PO BID right foot wound 14 11/19/22 days #28 caps fluoxetine 20 mg capsule See Rx Instructions .Route 12/03/22 .COMPLEX #30 caps Allergies Allergy/AdvReac Type Severity Reaction Status Date / Time No Known Allergies Allergy Verified 12/03/22 14:44 [facility] Disclaimer: The information contained in this section may have been updated after the patient was seen, as this information can be updated by other users. Social History Smoking Status: Never smoker alcohol intake: never current occupational status: retired Travel in the last 8 weeks: None household members: spouse housing: house caffeine: Yes ROS Obtained: Yes All systems reviewed & no additional complaints except as documented Physical Exam General General appearance: alert and in no apparent distress Head Head exam: atraumatic and normocephalic Eye Eye exam: Present normal appearance, PERRL and EOMI ENT ENT exam: Present mucous membranes moist Neck Neck exam: Present normal inspection, full ROM and trachea midline Respiratory Respiratory exam: Absent respiratory distress, wheezes, stridor, accessory muscle use or prolonged expiratory phase Cardiovascular Cardiovascular exam: Present normal rhythm Abdominal Exam Abdominal exam: Present soft; Absent distention, tenderness, guarding, rebound or rigidity Extremities Exam Extremities exam: Absent edema Neurological Exam Neurological exam: Present alert, CN II-XII intact and normal gait; Absent oriented X3 (Oriented only to person) or motor sensory deficit Skin Skin exam: Present warm and dry; Absent diaphoresis or erythema Medical Decision Making Medical Records Medical records reviewed: Yes I reviewed the patient's medical records. Aron Inquiry Pt receiving controlled substance: No Aron was queried for this patient: No Vital Signs: 01/01/24 19:53 01/01/24 22:07 Temperature 98.3 F Temperature Source Oral Pulse Rate 67 Pulse Rate [Right Brachial] 79 Respiratory Rate 18 18 Blood Pressure 151/66 H Blood Pressure [Right Arm] 137/73 Blood Pressure Mean [Right Arm] 94 02 Sat by Pulse Oximetry 100 100 Oxygen Delivery Method Room Air Room Air Lab Data Lab Results 01/01/24 19:59: VBG pH 7.28 L, VBG pCO2 34.9 L, VBG pO2 35.2, VBG HCO3 16.0 L, VBG Total CO2 17.0 L, VBG O2 Saturation 58.1, VBG Base Excess -10.8 L, VBG Lactic Acid 2.3 H 01/01/24 20:00: WBC 11.1 H, RBC 4.34 L, Hgb 12.8 L, Hct 40.2 L, MCV 92.7, MCH 29.5, MCHC 31.9, RDW 14.0, Plt Count 254, MPV 8.3, Neut % (Auto) 74.8, Lymph % (Auto) 19.6, [place] % (Auto) 4.0, Eos % (Auto) 0.8, Baso % (Auto) 0.8, Neut # (Auto) 8.3 H, Lymph # (Auto) 2.2, [place] # (Auto) 0.4, Eos # (Auto) 0.1, Baso # (Auto) 0.1, Sodium 137, Potassium 3.3 L, Chloride 106, Carbon Dioxide 20 L, Anion Gap 14.3, BUN 82 H, Creatinine 2.10 H, Estimated Creat Clear 28, Estimated GFR 30 L, Est GFR ( Amer) 37 L, Glucose 132 H, Calcium 8.8, Magnesium 1.9, Total Bilirubin 1.1, AST 24, ALT 21, Alkaline Phosphatase 64, Troponin I 0.03, NT-Pro-B Natriuret Pep 730 H, Total Protein 6.1 L, Albumin 3.7, Globulin 2.4, Albumin/Globulin Ratio 1.5, TSH 1.57, Thyroxine (T4) 10.3 01/01/24 20:40: Urine Color Yellow, Urine Appearance Clear, Urine pH 5.0, Ur Specific [place] 1.025, Urine Protein Negative, Urine Glucose (UA) Negative, Urine Ketones Trace, Urine Blood Negative, Urine Nitrate Negative, Urine Bilirubin Negative, Urine Urobilinogen 0.2, Ur Leukocyte Esterase Trace, Urine RBC None, Urine WBC 3-5, Ur Squamous Epith Cells 3-5, Urine Bacteria Trace, Hyaline Casts 3-5, Urine Mucus 1+, Urine Opiates Screen Positive H, Urine Methadone Screen Negative, Ur Barbituates Screen Negative, Ur Phencyclidine Scrn Negative, Ur Amphetamines Screen Negative, U Benzodiazepines Scrn Positive H, Urine Cocaine Screen Negative, U Marijuana (THC) Screen Negative 01/01/24 21:10: Lactate 1.4 01/01/24 20:00 01/01/24 20:00 Orders (Tests/Meds): ED MEDICATIONS Generic Name Dose Route Start Last Admin Trade Name Freq PRN Reason Stop Dose Admin Lactated Ringer's 1,000 mls @ 100 mls/hr 01/01/24 22:57 01/01/24 23:16 Lactated Ringer's 1000 Ml Bag IV 01/31/24 21:59 100 mls/hr .Q10H ELIZABETH Administration Discontinued Medications Generic Name Dose Route Start Last Admin Trade Name Freq PRN Reason Stop Dose Admin Acetaminophen 1,000 mg 01/01/24 21:50 01/01/24 22:02 Acetaminophen 1,000mg/100ml Vial IV 01/01/24 21:51 1,000 mg ONCE ONE Administration Ceftriaxone Sodium 1 gm/ 50 mls @ 100 mls/hr 01/01/24 20:37 01/01/24 21:25 Sodium Chloride IV 01/01/24 21:06 100 mls/hr ONCE ONE Administration Sodium Chloride 2,180 mls @ 1,090 mls/hr 01/01/24 20:37 01/01/24 21:22 Sod Chlor 0.9% 1000ml Bag 30 ml/kg infuse over 2 hr (2180 ml) 01/01/24 22:36 1,090 mls/hr IV Administration .Q2H ONE Lactated Ringer's 1,000 mls @ 100 mls/hr 01/01/24 22:00 01/01/24 23:15 Lactated Ringer's 1000 Ml Bag IV 01/31/24 21:59 Not Given .Q10H ELIZABETH ORDERS Category Date Time Status CT abdomen pelvis wo con Stat Cat Scan 01/01/24 20:38 Completed Care Management Consult [Consult to Case Management] [ Cons 01/01/24 21:50 Active CONS] Routine XR chest portable Stat Exams 01/01/24 19:59 Completed Complete Blood Count Auto Diff Stat Lab 01/01/24 20:00 Completed Comprehensive Metabolic Panel Stat Lab 01/01/24 20:00 Completed Drug Screen,Urine Stat Lab 01/01/24 20:40 Completed Lactic Acid Stat Lab 01/01/24 21:10 Completed Magnesium Stat Lab 01/01/24 20:00 Completed NT Pro Brain Natriuretic Pep. Stat Lab 01/01/24 20:00 Completed T4 (Thyroxine) Stat Lab 01/01/24 20:00 Completed Thyroid Stimulating Hormone Stat Lab 01/01/24 20:00 Completed Trop I [Troponin I] Stat Lab 01/01/24 20:00 Completed Troponin I Q3H Lab 01/01/24 22:55 Received Troponin I Q3H Lab 01/02/24 02:15 Ordered UA [Urinalysis and Microscopic] Stat Lab 01/01/24 20:40 Completed Blood Culture Stat Micro 01/01/24 21:00 Received VBG [Venous Blood Gas] Stat RT 01/01/24 19:59 Completed Medical Decision Narrative: 83-year-old male history of hypertension, hyperlipidemia, CAD status post CABG, dementia, renal insufficiency presenting with generalized weakness, confusion, malodorous urine. Family states that patient was last known to be at his normal baseline yesterday, 12/30. Today, they checked on him and he seemed weak all over, generally having difficulty walking and standing. EMS was contacted and movement arrived, they report that patient's house smelled heavily of malodorous urine. Patient pleasant, cooperative, brought to the emergency department. Patient has no acute complaints, but I feel that history is limited secondary to dementia and confusion. History was obtained via conversation with patient, EMS. On arrival, patient hemodynamically stable, alert, oriented only to person, appropriate, GCS 14, moving all extremities spontaneously, pupils equal and reactive to light. Full physical exam performed and significant for well-appearing male who is in no acute distress. Lungs are clear to auscultation bilaterally anterior and posteriorly, but decreased in lower lung gonzalez.No lower extremity edema. Pulses are equal and symmetric, no evidence of rash. Abdomen is soft, nontender, nondistended. NIHSS 0. Differential includes UTI, pneumonia, metabolic, endocrinologic, hypoxemia, ingestion, intoxication, withdrawal, sepsis, seizure, intracranial bleed, trauma, neoplastic among others. Patient was given IV fluid bolus, 1 g ceftriaxone for symptomatic management and correction of underlying abnormalities. Workup independently interpreted and significant for leukocyte esterase and bacteria in urine, no nitrates. Patient does have prerenal CAN with mild leukocytosis 11.1. See radiology read for full review of final results. Independent interpretation of EKG shows sinus rhythm with mild ST depressions diffusely concerning for mild global dysfunction. No elevations. SC, QRS, QT intervals within normal limits. On reevaluation, patient resting comfortably in bed. Given IV fluids. Hospital medicine was contacted and case was discussed at length, to be admitted. Because patient high risk for clinical decompensation, deemed appropriate for inpatient admission. Results were relayed to patient who voiced understanding and patient was agreeable to inpatient admission and management. Patient was admitted to the hospital for further definitive management. Critical Care Critical Care Time Critical Care Time: No
[2024-01-01 20:14] LABS: Basophils # 0.1 K/mm3 (0-0.2); Basophils % 0.8 % (0.1-2.0); Eosinophils # 0.1 K/mm3 (0.0-0.4); Eosinophils % 0.8 % (0.1-12.0); Hematocrit 40.2 % (42.0-52.0); Hemoglobin 12.8 g/dL (14.1-18.0); Lymphocytes # 2.2 K/mm3 (0.7-4.5); Lymphocytes % 19.6 % (10-50); Mean Corpuscular HGB Conc 31.9 g/dL (31.8-35.4); Mean Corpuscular Hemoglobin 29.5 pg (27.0-31.2); Mean Corpuscular Volume 92.7 fl (80-94); Mean Platelet Volume 8.3 fl (7.4-10.4); Monocytes # 0.4 K/mm3 (0.1-1.0); Neutrophils # 8.3 K/mm3 (1.8-7.8); Neutrophils % 74.8 % (37.0-80.0); Platelet Count 254 K/mm3 (142-424); Red Blood Count 4.34 M/mm3 (4.60-6.20); White Blood Count 11.1 K/mm3 (4.8-10.8)
[2024-01-01 20:27] LABS: Chloride 106 mmol/L (98-107); Potassium 3.3 mmoL/L (3.5-5.1); Sodium 137 mmol/L (136-145)
[2024-01-01 20:30] LABS: Alanine Aminotransferase 21 U/L (12-78); Albumin Level 3.7 g/dl (3.5-5.0); Albumin/Globulin Ratio 1.5 (1.1-1.8); Alkaline Phosphatase 64 U/L (38-126); Anion Gap 14.3 mEq/L (5-15); Aspartate Amino Transferase 24 U/L (17-59); Bilirubin,Total 1.1 mg/dl (0.2-1.3); Calcium 8.8 mg/dl (8.4-10.2); Carbon Dioxide 20 mmol/L (22.0-30.0); Creatinine Clearance Estimated 28 mL/min (50-200); Estimated Glomerular Filt Rate 30 ml/min (>60); GFR (African American) 37 ML/MIN (>60); Globulin 2.4 g/dL (1.3-3.2); Glucose 132 mg/dl (74-100); Total Protein,Serum 6.1 g/dl (6.3-8.2)
[2024-01-01 20:31] LABS: Magnesium 1.9 mg/dl (1.6-2.3)
[2024-01-01 20:37] LABS: Blood Urea Nitrogen 82 mg/dl (9-20)
--- NOTE | 2024-01-01 20:38 | CT_ITS ---
PROCEDURE INFORMATION: Exam: CT Abdomen And Pelvis Without Contrast Exam date and time: 01/01/2024 8:49 PM Age: 83 years old Clinical indication: Abdominal pain; Additional info: Jasmeet, rule out stone. Confused TECHNIQUE: Imaging protocol: Computed tomography of the abdomen and pelvis without contrast. Radiation optimization: All CT scans at this facility use at least one of these dose optimization techniques: automated exposure control; mA and/or kV adjustment per patient size (includes targeted exams where dose is matched to clinical indication); or iterative reconstruction. COMPARISON: [facility] CT abdomen pelvis wo con 12/06/2018 9:24 PM FINDINGS: Diaphragm: Hiatal hernia. Liver: Normal. No mass. Gallbladder and bile ducts: Cholecystectomy. No bile duct dilatation. Pancreas: Normal. No ductal dilation. Spleen: Normal. No splenomegaly. Adrenal glands: Normal. No mass. Kidneys and ureters: Punctate nonobstructing right renal stone. Stomach and bowel: Colonic diverticulosis. Appendix: No evidence of appendicitis. Intraperitoneal space: Unremarkable. No free air. No significant fluid collection. Vasculature: Moderate atherosclerotic changes are seen within the abdominal aorta and branch vasculature without evidence of aneurysm. Lymph nodes: Unremarkable. No enlarged lymph nodes. Urinary bladder: Unremarkable as visualized. Reproductive: Unremarkable as visualized. Bones/joints: Extensive thoracolumbar spinal fixation hardware. New debbie and pedicle screw at S1 and new interbody cage at L5-S1. Chronic fusion of the L1 and L2 vertebral bodies. Soft tissues: Unremarkable. IMPRESSION: 1. Punctate nonobstructing right renal stone. 2. Hiatal hernia. 3. Diverticulosis. 4. Incidental/nonacute findings as described.
--- NOTE | 2024-01-01 20:46 | PC.NURSE ---
clean brief placed on pt and pts pants and underwear placed in belonging bag
[2024-01-01 20:48] LABS: T4 (Thyroxine) 10.3 ug/dl (5.53-11.0)
[2024-01-01 20:49] LABS: Microscopic, Urine URINE MICROSCOPIC (MICROSCOPIC)
[2024-01-01 20:53] LABS: Appearance,Urine CLEAR (Clear); Blood, Urine Negative (Negative); Color,Urine YELLOW (Yellow); Glucose,Urine (UA) Negative (Negative); Ketones,Urine TRACE (Negative); Leukocyte Esterase,Urine TRACE (Negative); Nitrate,Urine Negative (Negative); Protein,Urine Negative (Negative); Specific Gravity, Urine 1.025 (1.005-1.030); Urobilinogen,Urine 0.2 EU/dl (0.2)
[2024-01-01 20:54] LABS: Bilirubin,Urine Negative (Negative)
[2024-01-01 20:55] LABS: NT Pro Brain Natriuretic Pep. 730 pg/mL (0-450)
[2024-01-01 20:59] LABS: Troponin I 0.03 ng/ml (0.00-0.034)
[2024-01-01 21:01] LABS: Thyroid Stimulating Hormone 1.57 uIU/mL (0.465-4.68)
[2024-01-01 21:03] LABS: Amphetamine/Metha Screen,Urine Negative ng/ml (<1000); Barbiturates Screen,Urine Negative ng/ml (<200)
[2024-01-01 21:04] LABS: Benzodiazepines Screen,Urine Positive ng/ml (<200)
[2024-01-01 21:05] LABS: Cannabinoid Screen,Urine Negative ng/ml (<50); Cocaine Screen,Urine Negative ng/ml (<300)
[2024-01-01 21:06] LABS: Methadone Screen,Urine Negative ng/ml (<300); Phencyclidine Screen,Urine Negative ng/ml (<25)
[2024-01-01 21:07] LABS: VBG Base Excess -10.8 mmol/L (-2.4-2.3); VBG Oxygen Saturation 58.1 % (50-70); VBG PCO2 34.9 mmol/L (35-51); VBG PH 7.28 mmol/L (7.31-7.41); VBG PO2 35.2 mmol/L (28-40)
[2024-01-01 21:07] LABS: Opiate Screen,Urine Positive ng/ml (<300)
[2024-01-01 21:08] LABS: Lactate Venous 2.3 mmol/L (0.4-2.0)
[2024-01-01 21:21] LABS: Bacteria,Urine Trace /lpf; Mucus,Urine 1+ /lpf
[2024-01-01] MEDS: 0.9 % SODIUM CHLORIDE 1000ML 2,180 ML 1090 ML IV (21:22)
--- NOTE | 2024-01-01 21:23 | PC.NURSE ---
md montalvo on phone with hospitalist
[2024-01-01] MEDS: CEFTRIAXONE SODIUM 1 GM in 0.9 % SODIUM CHLORIDE 50 ML IV (21:25)
[2024-01-01 21:28] LABS: Lactic Acid 1.4 mmol/L (0.7-2.1)
--- NOTE | 2024-01-01 21:45 | PC.NURSE ---
supervisor dimension warehouse paged at this time
[2024-01-01] MEDS: ACETAMINOPHEN 1,000MG/100ML VIAL 1000 MG IV (22:02)
[2024-01-01 22:07] VITALS: BP 151/66; PULSE 67; RESP 18; O2SAT 100
--- NOTE | 2024-01-01 22:12 | PC.NURSE ---
Notified house of admission at this time
--- NOTE | 2024-01-01 22:13 | PC.NURSE ---
pt admitted for encephalopathy, UTI, and CAN to [address] Ayon
--- NOTE | 2024-01-01 22:27 | PC.NURSE ---
report given to CATARINA richardson on second floor
--- NOTE | 2024-01-01 22:41 | PC.NURSE ---
patient arrived to floor via stretcher @22:40
[2024-01-01 22:43] VITALS: BP 147/73; PULSE 61; RESP 18; TEMP 36.8; O2SAT 100
[2024-01-01] MEDS: LACTATED RINGERS 1000ML 1,000 ML 100 ML IV (23:16)
[2024-01-01 23:52] LABS: Troponin I 0.04 ng/ml (0.00-0.034)
[2024-01-02] VITALS (8 sets, daily range): BP systolic 141–159; BP diastolic 51–71; PULSE 50–70; RESP 16–18; TEMP 36.5–37.1; O2SAT 96–98; BMI 21.6
[2024-01-02] MEDS: TEMAZEPAM 30MG CAPSULE 30 MG PO ×2 (00:59→20:12)
[2024-01-02] MEDS: HYDROCODONE 10MG/APAP 325MG TAB 1 TAB PO ×2 (00:59→17:24)
[2024-01-02 01:09] LABS: Reflex Lactic Add Lactic Reflex
[2024-01-02 02:49] LABS: Troponin I 0.05 ng/ml (0.00-0.034)
--- NOTE | 2024-01-02 05:15 | PC.NURSE ---
since arriving to the floor the patient has done really well. I was told in report that he was being admitted because he was altered mental status. Since arriving to the floor through the patient has been able to answer every question and even knew the medications he was on at home. Patient remains that way through the night. Patient has voided per the urinal. No other issues through night.
--- NOTE | 2024-01-02 08:01 | HMH.PHAINT1 ---
Pharmacy Intervention Comments: HOME MEDICATION LIST VERIFIED USING LIST FROM OUTPATIENT PHARMACY
--- NOTE | 2024-01-02 08:17 | EXP.HP ---
History of Present Illness *History of present illness: Mr. Brady is an 83-year-old male with a history of hypertension, hyperlipidemia, heart disease status post CABG and followed by Dr. Morales, BPH, chronic back pain, and COPD. He states for the past 2 weeks he has been feeling poorly. He has had dysuria and weakness. His son lives in [place] and his daughter lives near [place]. He states they check on him regularly. He lost his last year and lives alone with his dog. According to the ER note, the patient was at baseline on 12/30 but when his family checked on him yesterday, he seemed weak and was having difficulty walking and standing. EMS was called and transported him to the emergency room. He was given IV fluids and 1 g of Rocephin. He did have acute kidney injury along with mild leukocytosis. It was felt he had a UTI and was admitted for further evaluation and treatment. His chest x-ray showed nothing acute. His abdominal pelvic CT showed a punctate nonobstructing right renal stone, hiatal hernia, and diverticulosis. This a.m., the patient seems to be more awake and alert. He can recall what happened over the past few days. He states he is feeling better this morning. [facility] Disclaimer: The information contained in this section may have been updated after the patient was seen, as this information can be updated by other users. Medical History (Updated 01/02/24 @ 08:33 by SHAUN Marquez) Osteomyelitis of spine History of peptic ulcer ASCVD (arteriosclerotic cardiovascular disease) Hypertension BPH (benign prostatic hyperplasia) GERD (gastroesophageal reflux disease) Right foot drop Chronic pain of both feet Bronchitis Neuropathy Hyperlipidemia History of pacemaker Surgical History (Updated 01/02/24 @ 08:28 by SHAUN Marquez) H/O repair of rotator cuff Hx of CABG Previous back surgery History of cholecystectomy Family History (Updated 01/02/24 @ 08:29 by SHAUN Marquez) Other Cancer Coronary artery disease Hypertension Stroke Social History Smoking Status: Never smoker alcohol intake: never current occupational status: retired Travel in the last 8 weeks: None household members: spouse housing: house caffeine: Yes Review of Systems Constitutional Constitutional: Reports fatigue, Denies headache(s) and Reports weakness Eyes Eyes: Denies blurry vision and Denies diplopia ENT Ears, Nose, Mouth, and Throat: Denies headache(s), Denies nasal congestion, Denies sore throat and Denies vertigo *Cardiovascular Cardiovascular: Denies chest pain, Denies dyspnea and Denies leg edema *Respiratory Respiratory: Denies cough and Denies dyspnea *Gastrointestinal Gastrointestinal: Denies abdominal pain, Denies loose stools, Denies nausea and Denies vomiting *Genitourinary Genitourinary: Reports difficulty urinating and Reports dysuria *Musculoskeletal Musculoskeletal: Denies arthralgias, Reports back pain and Denies myalgias *Neurologic Neurologic: Denies headache(s), Denies vertigo and Reports weakness Endocrine Endocrine: Reports fatigue Meds Home Medications and Allergies Home Medications Medication Instructions Recorded Confirmed Type atorvastatin 80 mg tablet 80 mg PO HS 12/06/18 01/01/24 History pantoprazole 40 mg tablet,delayed 40 mg PO HS 12/06/18 01/01/24 History release temazepam 30 mg capsule (Restoril) 30 mg PO HS 12/06/18 01/01/24 History cyanocobalamin (vitamin B-12) 1,000 mcg PO DAILY 01/28/21 01/01/24 History 1,000 mcg tablet aspirin 81 mg chewable tablet 81 mg PO DAILY 01/29/21 01/01/24 History cholecalciferol (vitamin D3) 50 2,000 unit PO DAILY 01/29/21 01/01/24 History mcg (2,000 unit) tablet docusate sodium 100 mg capsule 100 mg PO BIDP PRN Constipation 01/29/21 01/01/24 History fluticasone propionate 50 2 spray intranasal DAILYP PRN 01/29/21 01/01/24 History mcg/actuation nasal allergy symptoms spray,suspension gabapentin 600 mg tablet 600 mg PO TID 01/29/21 01/01/24 History tamsulosin 0.4 mg capsule 0.4 mg PO HS urinary retention #30 04/23/22 01/01/24 Rx caps ferrous sulfate 325 mg (65 mg 325 mg PO DAILY 01/01/24 01/01/24 History iron) tablet hydrocodone 10 mg-acetaminophen 1 tab PO Q8H PRN Pain, Moderate 01/01/24 01/01/24 History 325 mg tablet fluoxetine 20 mg capsule 20 mg PO DAILY 01/02/24 01/02/24 History New Prescriptions to Start Prescriptions: Allergies Allergy/AdvReac Type Severity Reaction Status Date / Time No Known Allergies Allergy Verified 12/03/22 14:44 Exam Data for Last 24 hours Vital signs and Labs for Last 24 Hours: Temp Pulse Resp BP Pulse Ox O2 Del Method 98.0 F 63 18 150/51 H 98 Room Air 01/02/24 07:40 01/02/24 07:40 01/02/24 07:40 01/02/24 07:40 01/02/24 07:40 01/02/24 07:40 Laboratory Results - last 24 hr 01/01/24 19:59: VBG pH 7.28 L, VBG pCO2 34.9 L, VBG pO2 35.2, VBG HCO3 16.0 L, VBG Total CO2 17.0 L, VBG O2 Saturation 58.1, VBG Base Excess -10.8 L, VBG Lactic Acid 2.3 H 01/01/24 20:00: WBC 11.1 H, RBC 4.34 L, Hgb 12.8 L, Hct 40.2 L, MCV 92.7, MCH 29.5, MCHC 31.9, RDW 14.0, Plt Count 254, MPV 8.3, Neut % (Auto) 74.8, Lymph % (Auto) 19.6, [place] % (Auto) 4.0, Eos % (Auto) 0.8, Baso % (Auto) 0.8, Neut # (Auto) 8.3 H, Lymph # (Auto) 2.2, [place] # (Auto) 0.4, Eos # (Auto) 0.1, Baso # (Auto) 0.1, Sodium 137, Potassium 3.3 L, Chloride 106, Carbon Dioxide 20 L, Anion Gap 14.3, BUN 82 H, Creatinine 2.10 H, Estimated Creat Clear 28, Estimated GFR 30 L, Est GFR ( Amer) 37 L, Glucose 132 H, Calcium 8.8, Magnesium 1.9, Total Bilirubin 1.1, AST 24, ALT 21, Alkaline Phosphatase 64, Troponin I 0.03, NT-Pro-B Natriuret Pep 730 H, Total Protein 6.1 L, Albumin 3.7, Globulin 2.4, Albumin/Globulin Ratio 1.5, TSH 1.57, Thyroxine (T4) 10.3 01/01/24 20:40: Urine Color Yellow, Urine Appearance Clear, Urine pH 5.0, Ur Specific [place] 1.025, Urine Protein Negative, Urine Glucose (UA) Negative, Urine Ketones Trace, Urine Blood Negative, Urine Nitrate Negative, Urine Bilirubin Negative, Urine Urobilinogen 0.2, Ur Leukocyte Esterase Trace, Urine RBC None, Urine WBC 3-5, Ur Squamous Epith Cells 3-5, Urine Bacteria Trace, Hyaline Casts 3-5, Urine Mucus 1+, Urine Opiates Screen Positive H, Urine Methadone Screen Negative, Ur Barbituates Screen Negative, Ur Phencyclidine Scrn Negative, Ur Amphetamines Screen Negative, U Benzodiazepines Scrn Positive H, Urine Cocaine Screen Negative, U Marijuana (THC) Screen Negative 01/01/24 21:10: Lactate 1.4 01/01/24 23:25: Troponin I 0.04 H 01/02/24 02:20: Troponin I 0.05 H I & O for Last 24 hours: Intake & Output 12/30/23 12/31/23 01/01/24 01/02/24 11:59 11:59 11:59 11:59 Intake Total 170 / 170 Balance 170 / 170 Weight 150 lb 12.8 oz Constitutional Constitutional: no acute distress *Routine HEENT Exam Head: Present normocephalic and atraumatic Eye: Present EOMI and PERRL ENT: Present mucous membranes moist *Routine Neck Exam Neck: Present supple and full ROM *Routine Respiratory Exam Respiratory: Present CTA bilaterally *Routine Cardiovascular Exam Cardiovascular: Present RRR *Routine Abdominal Exam Abdominal: Present soft and normoactive bowel sounds; Absent tenderness *Routine Rectal Exam Rectal:: deferred *Routine Genitalia Exam Genitalia:: deferred *Routine Extremities Exam Extremities: Absent cyanosis, clubbing or edema *Routine Skin Exam Skin: Present intact; Absent erythema *Routine Neurological Exam Neurological: Present alert and oriented X3 H&P: Result Impressions CXR - nothing acute Abd/Pelvic CT 1. Punctate nonobstructing right renal stone. 2. Hiatal hernia. 3. Diverticulosis. 4. Incidental/nonacute findings as described. Assessment and Plan *Assessment and plan (1) UTI (urinary tract infection): Status: Acute Category: Medical Code(s): N39.0 - Urinary tract infection, site not specified (2) CAN (acute kidney injury): Status: Acute Category: Medical Code(s): N17.9 - Acute kidney failure, unspecified (3) Altered mental status: Status: Acute Qualifiers: Altered mental status type: disorientation Qualified Code(s): R41.0 - Disorientation, unspecified Category: Medical Code(s): R41.82 - Altered mental status, unspecified (4) Hypokalemia: Status: Acute Category: Medical Code(s): E87.6 - Hypokalemia (5) Elevated troponin: Status: Acute Category: Medical Code(s): R79.89 - Other specified abnormal findings of blood chemistry (6) Pacemaker: Status: Chronic Category: Medical Code(s): Z95.0 - Presence of cardiac pacemaker (7) ASCVD (arteriosclerotic cardiovascular disease): Status: Chronic Category: Medical Code(s): I25.10 - Atherosclerotic heart disease of [place] coronary artery without angina pectoris (8) Hypertension: Status: Acute Category: Medical Code(s): I10 - Essential (primary) hypertension (9) BPH (benign prostatic hyperplasia): Status: Chronic Category: Medical Code(s): N40.0 - Benign prostatic hyperplasia without lower urinary tract symptoms (10) GERD (gastroesophageal reflux disease): Status: Chronic Category: Medical Code(s): K21.9 - Gastro-esophageal reflux disease without esophagitis (11) Hx of CABG: Status: Chronic Category: Surgical Code(s): Z95.1 - Presence of aortocoronary bypass graft (12) History of neuropathy: Status: Acute Category: Medical Code(s): Z86.69 - Personal history of other diseases of the nervous system and sense organs (13) Chronic pain of both feet: Status: Acute Category: Medical Code(s): M79.671 - Pain in right foot; M79.672 - Pain in left foot; G89.29 - Other chronic pain (14) Right foot drop: Status: Acute Category: Medical Code(s): M21.371 - Foot drop, right foot Plan Patient is improving this am. His mental status is much better since he has been started on antibiotics. Will await urine culture results. Will continue to hydrate and start on potassium supplementations. His troponins have elevated. Will consult cardiology. Dr. Ayon entry - Saw patient, agree with above note.
[2024-01-02] MEDS: LACTATED RINGERS 1000ML 1,000 ML 100 ML IV (08:23)
[2024-01-02] MEDS: POTASSIUM CHLORIDE 20MEQ TAB 20 MEQ PO (08:55)
--- NOTE | 2024-01-02 09:22 | CA_ITS ---
APPROVED REPORT EXAM: Comprehensive 2D, Doppler, and color-flow Echocardiogram [place]: Mirta Bradley RVT Ht: 5 ft 10 in Wt: 150lbs BSA: 1.85 BP: 150/51 mmHg Indications: ELEVATED TROP.,CAD,CABG,HTN,HLD 2D Dimensions IVSd 1.08 cm M: 0.6-1.2 LVEF (Visual) 66.00 % PWd 0.91 cm M: 0.6 - 1.2 LA Volume 23.20 mL LVDd 3.97 cm M: 4.2 - 5.9 LA Volume Index 12.54 mL/m2 (M/F) 16-34 LVDs 2.55 cm M: 2.5 - 4.0 M-Mode Dimensions LA Diam 3.59 cm (1.9-4.0) LV Diastology E Decel Time 307 (160-240 msec) E/A Ratio 0.6 Aortic Valve JESSE Index 2.34 cm2/m2 AoV Peak Twin. 108.0 (50-130 cm/s) AO Peak GR. 4.70 mmHg AO Mean GR. 2.40 (<5 mmHg) AO VTI 24.8 (18-25 cm) JESSE (VTI) 4.43 (2.5-4.5 cm2) Mitral Valve MV E Max Twin. 63.0 (40-130 cm/s) MV A Velocity 106.0 (40-130 cm/s) E/A Ratio 0.60 MV PHT 90.0 ms Pulmonary Valve PV Peak Velocity 66.0 (50-150 cm/s) Tricuspid Valve TR P. Velocity 212.00 cm/s RAP Estimate 10.00 mmHg RVSP 28.00 mmHg Left Ventricle The left ventricle is normal size. The left ventricular systolic function is normal. The left ventricular ejection fraction is within the normal range. There is increased LV wall thickness There is normal LV segmental wall motion. Transmitral Doppler flow pattern suggests impaired LV relaxation. LVEF is 55%. Right Ventricle The right ventricle is normal size. The right ventricular systolic function is normal. Atria The left atrium size is normal. The right atrium size is normal. There is no Doppler evidence of interatrial shunt. Aortic Valve The aortic valve is mildly thickened. There is no aortic valvular stenosis. No aortic regurgitation is present. Mitral Valve The mitral valve leaflets are mildly thickened. No evidence of mitral valve stenosis. Trace mitral regurgitation. Tricuspid Valve The tricuspid valve leaflets are thin and pliable. Trace tricuspid regurgitation. There is insufficient TR jet to estimate RVSP. Pulmonic Valve The pulmonary valve is normal in structure. Trace pulmonic regurgitation. Great Vessels The aortic root is normal in size. The ascending aorta is not well-visualized. IVC is normal in size and collapses >50% with inspiration. Pericardium There is no pericardial effusion. Other Information Study Quality: Fair Conclusion Normal biventricular systolic function. No significant valvular stenosis or regurgitation. Electronically signed by : Mehreen Del Real MD 01/06/2024 12:14:37
[2024-01-02 09:47] LABS: Chloride 114 mmol/L (98-107); Potassium 3.4 mmoL/L (3.5-5.1); Sodium 138 mmol/L (136-145)
[2024-01-02 09:50] LABS: Blood Urea Nitrogen 65 mg/dl (9-20); Creatinine Clearance Estimated 32 mL/min (50-200); Estimated Glomerular Filt Rate 39 ml/min (>60); GFR (African American) 47 ML/MIN (>60)
[2024-01-02 09:51] LABS: Anion Gap 6.4 mEq/L (5-15); Calcium 7.8 mg/dl (8.4-10.2); Carbon Dioxide 21 mmol/L (22.0-30.0); Glucose 139 mg/dl (74-100)
--- NOTE | 2024-01-02 10:16 | HMH.PTEV ---
Physical Therapy Evaluation Rehab PT IP Evaluation Start: 01/02/24 08:23 Freq: ONCE Status: Active Protocol: Document 01/02/24 10:06 RODOLFO (Rec: 01/02/24 10:16 PHORMERLIN [id number]) Subjective/History History History This is the initial eval for Gerhard Brady, 83 yowm, who presents to [facility] with encephalopathy, CAN and UTI. He was brought to the ED by his children who noticed him suddenly getting weaker and having trouble standing. PMH of hypertension, hyperlipidemia, heart disease status post CABG and followed by Dr. Morales, BPH, chronic back pain, and COPD Subjective Subjective The patient is supine in bed upon arrival. He is agreeable to PT. He is oriented to person and place but not time. The patient seemed confused throughout subjective history. He does report that he lives at home alone, his kids check on him often. He has someone that comes to his home and cooks and cleans for him. He uses a scooter for mobility and has no difficulty getting on/off the scooter. He also reports no difficulty with getting on/off the commode. New diagnosis of cancer in past 12 No months? Rehab PT IP Eval Objective Appearance Patient Behavior Confused Patient Orientation Person,Place Difficulty following instructions mild Speech Pattern Clear Ambulation Patient Able to Ambulate No Balance Ability to Arise Unable Sitting Balance Leans or slides in chair Dynamic Sitting Balance Ability Poor Transfers Bed Transfer Ability Total/Dependent (100%) Rehab PT IP prob,goals,plan Problems Date of Evaluation: 01/02/24 PT IP Problems Bed Mobility,Transfers,Gait, Balance,Self care,Safety Rehab Potential Rehab Potential Fair Equipment Needs Assistive Devices Rolling / Wheeled Walker Plan PT Intervention Plan Bed Mobility,Transfers,Gait, Balance,Self care,Safety, Therapeutic Exercise PT Plan Frequency Daily Duration LOS Discharge Goals Bed Transfer Ability Moderate x 1 (50% assist) Sit to Stand Chair Transfer Ability Moderate x 1 (50% assist) Ambulation Assistive Device Rolling Walker Ambulation Distance (feet) 3 Discharge Plan PT Discharge Plan The patient presents below baseline in mobility and strength as compared to his prior level of function. Skilled PT is indicated for this patient during his acute stay. The patient may be most appropriate for further placement, upon discharge from the hosptial. Eval Complexity Eval Charge Codes 97042 - High Complexity PHYSICIAN CERTIFICATION: I certify the specified therapy services for Gerhardjovi Cazaresm are required, authorized, and reviewed every 30 days.
--- NOTE | 2024-01-02 11:03 | HMH.OTEV ---
OT Inpatient Evaluation Rehab OT IP Evaluation Start: 01/02/24 08:23 Freq: ONCE Status: Active Protocol: Document 01/02/24 10:55 [facility] (Rec: 01/02/24 11:03 [facility] [id number]) Rehab OT IP Assessment Subjective History Pt oriented x 2 on arrival. Pt agreeable to engage in therapy evaluation. Pt admitted on 01/01/24 due to encephalopathy, CAN, and UTI. History and Physical report: Mr. Brady is an 83-year-old male with a history of hypertension, hyperlipidemia, heart disease status post CABG and followed by Dr. Morales, BPH, chronic back pain, and COPD. He states for the past 2 weeks he has been feeling poorly. He has had dysuria and weakness. His son lives in [place] and his daughter lives near [place]. He states they check on him regularly. He lost his last year and lives alone with his dog. According to the ER note, the patient was at baseline on 12/30 but when his family checked on him yesterday, he seemed weak and was having difficulty walking and standing. EMS was called and transported him to the emergency room. He was given IV fluids and 1 g of Rocephin. He did have acute kidney injury along with mild leukocytosis. It was felt he had a UTI and was admitted for further evaluation and treatment. His chest x-ray showed nothing acute. His abdominal pelvic CT showed a punctate nonobstructing right renal stone, hiatal hernia, and diverticulosis. Subjective The patient is supine in bed upon arrival. He is agreeable to OT. He is oriented to person and place but not time. The patient seemed confused throughout subjective history. He does report that he lives at home alone, his kids check on him often. He has someone that comes to his home and cooks and cleans for him. He uses a scooter for mobility and has no difficulty getting on/off the scooter. He also reports no difficulty with getting on/off the commode. Objective Patient Orientation Person,Birthday Right Upper Extremity Gross ROM Min Limitation <25% Left Upper Extremity Gross ROM Min Limitation <25% Shoulder ROM Limitations Muscle Weakness Elbow ROM Limitations Muscle Weakness Wrist Limitations of Range of Motion Muscle Weakness Bed Mobility bed mobility-scooting,bed mobility - supine/sit Assist Level Total/Dependent (100%) Rehab OT IP prob,goals,plan Problems Date of Evaluation: 01/02/24 OT IP Problems Bed Mobility,Transfers,Balance ,Self care,Safety Rehab Potential Rehab Potential Good Equipment Needs Assistive Devices Rolling / Wheeled Walker, Wheelchair Plan OT intervention Plan Bed Mobility,Transfers,Balance ,Self care,Safety,Therapeutic Exercise OT Plan Frequency Daily Duration LOS Discharge Goals Bed Mobility Ability Assistance x1 Sit to Stand Chair Transfer Ability Maximum x 1 (75% assist) Chair Transfer Ability Maximum x 1 (75% assist) Chair Transfer Technique Sit to/from Ambulatory Chair Transfer Assistive Devices Rolling Walker Feeding Ability Assist with Tray Set Up Lower Body Dressing Ability Maximum Assistance Upper Body Dressing Ability Maximum Assistance Bathing Ability Maximum Assistance Performing Toilet Hygiene Ability Maximum Assistance Overall Commode/Toilet Transfer Ability Maximum Assistance Commode/Toilet Transfer Technique Sit to/from Ambulatory Commode/Toilet Transfer Assistive Grab Bars Devices Oral Care Assist Moderate Assistance Decrease in Endurance Yes Discharge Plan OT Discharge Plan Pt will continue to be seen for OT services while at [facility]. Pt presents significantly below baseline with functional transfers and ADL independence. Pt would benefit most from short term rehab at SNF following hospital stay. Continued skilled OT therapy is important in order for patient to improve strength, safety, endurance, ADL independence, and functional transfers to reach PLOF. Eval Complexity Eval Charge Codes 65754 - Moderate Complexity PHYSICIAN CERTIFICATION: I certify the specified therapy services for Gerhard Brady are required, authorized, and reviewed every 30 days.
--- NOTE | 2024-01-02 11:34 | SW/DCPLANNER ---
Addendum entered by Mara Posadas 01/03/24 09:23: Patient is NOT agreeable to home health services at this time. I will update patient's family. Patient will discharge home w/ family today. Original Note: I spoke w/ this patient and his son regarding plans at time of discharge. PT/OT evaluated patient and recommended SNF level of care. I did explain to patient and son that he will require private pay at placement at this time. Patient/son are not interested in private pay for placement. Son stated that family will be stay w/ son until more stable. Patient is agreeable to home health services and this will be set up at time of discharge. Discharge date is unknown at this time.
--- NOTE | 2024-01-02 13:29 | P.CONCA_ITS ---
History of Present Illness History of Present Illness Consult date: 01/02/24 Requesting physician: William Ayon Consult reason: shortness of breath Chief complaint: felt bad for 2 weeks History of present illness: This is an 83-year-old white gentleman who presented to the emergency department after feeling poorly for approximately 2 weeks. He has a past medical history of coronary artery disease status post coronary artery bypass grafting, hypertension, hyperlipidemia and COPD. The patient states that he does not really know what was wrong with him he just did not feel good. He had had some dysuria and significant weakness. Both of his children live out of town but they have been checking on him regularly. The patient states that he lost his approximately 1 year ago and since that time he states his health has just overall declined and he does not feel like himself. The patient states that his weakness has progressed and he was having significant difficulty walking and even standing. EMS was called and he was transported here to the emergency department. The patient was given IV fluids and antibiotics. He was found to have a UTI and acute kidney injury. The patient states that he is feeling much better this morning since being treated with IV fluids. He denies any chest pain or pressure. He states that he has noted shortness of breath with exertion and states that this is probably a little worse than it has been since he has not been feeling well the last 2 weeks. He occasionally has some edema in his bilateral lower extremities but states that this is not consistent. He denies any fever, chills, nausea, vomiting, diarrhea, PND or orthopnea. [facility] Disclaimer: The information contained in this section may have been updated after the patient was seen, as this information can be updated by other users. Medical History (Updated 01/02/24 @ 13:38 by Helen Sotelo APRN) Elevated troponin Osteomyelitis of spine History of peptic ulcer ASCVD (arteriosclerotic cardiovascular disease) Hypertension BPH (benign prostatic hyperplasia) GERD (gastroesophageal reflux disease) Right foot drop Chronic pain of both feet Bronchitis Neuropathy Hyperlipidemia History of pacemaker Surgical History (Updated 01/02/24 @ 08:28 by SHAUN Marquez) H/O repair of rotator cuff Hx of CABG Previous back surgery History of cholecystectomy Family History (Updated 01/02/24 @ 08:29 by SHAUN Marquez) Other Cancer Coronary artery disease Hypertension Stroke Social History Smoking Status: Never smoker alcohol intake: never current occupational status: retired Travel in the last 8 weeks: None household members: spouse housing: house caffeine: Yes Review of Systems Review of Systems Review of systems:: pertinent systems reviewed and negative unless documented below Constitutional Constitutional: Reports system reviewed and no additional complaints, except as documented, Reports fatigue, Denies headache(s), Reports lethargy, Reports malaise and Reports weakness Eyes Eyes: Reports system reviewed and no additional complaints, except as documented ENT Ears, Nose, Mouth, and Throat: Reports system reviewed and no additional complaints, except as documented, Denies headache(s) and Denies vertigo *Cardiovascular Cardiovascular: Reports system reviewed and no additional complaints, except as documented, Denies chest pain, Denies diaphoresis, Reports dyspnea, Reports dyspnea on exertion and Reports leg edema *Respiratory Respiratory: Reports system reviewed and no additional complaints, except as documented, Denies cough, Reports dyspnea and Reports dyspnea on exertion *Gastrointestinal Gastrointestinal: Reports system reviewed and no additional complaints, except as documented *Genitourinary Genitourinary: Reports system reviewed and no additional complaints, except as documented and Reports oliguria *Musculoskeletal Musculoskeletal: Reports system reviewed and no additional complaints, except as documented Integumentary/Breasts Skin/Breast: Reports system reviewed and no additional complaints, except as documented *Neurologic Neurologic: Reports system reviewed and no additional complaints, except as documented, Denies headache(s), Denies vertigo and Reports weakness Psychiatric Psychiatric: Reports system reviewed and no additional complaints, except as documented Endocrine Endocrine: Reports system reviewed and no additional complaints, except as documented and Reports fatigue Hematologic/Lymphatic Hematologic/Lymphatic: Reports system reviewed and no additional complaints, except as documented Allergic/Immunologic Allergic/Immunologic: Reports system reviewed and no additional complaints, except as documented Exam Data for Last 24 hours Vital signs and Labs for Last 24 Hours: Temp Pulse Resp BP Pulse Ox O2 Del Method 98.0 F 70 18 150/51 H 98 Room Air 01/02/24 07:40 01/02/24 08:00 01/02/24 07:40 01/02/24 07:40 01/02/24 07:40 01/02/24 12:36 Laboratory Results - last 24 hr 01/01/24 19:59: VBG pH 7.28 L, VBG pCO2 34.9 L, VBG pO2 35.2, VBG HCO3 16.0 L, VBG Total CO2 17.0 L, VBG O2 Saturation 58.1, VBG Base Excess -10.8 L, VBG Lactic Acid 2.3 H 01/01/24 20:00: WBC 11.1 H, RBC 4.34 L, Hgb 12.8 L, Hct 40.2 L, MCV 92.7, MCH 29.5, MCHC 31.9, RDW 14.0, Plt Count 254, MPV 8.3, Neut % (Auto) 74.8, Lymph % (Auto) 19.6, [place] % (Auto) 4.0, Eos % (Auto) 0.8, Baso % (Auto) 0.8, Neut # (Auto) 8.3 H, Lymph # (Auto) 2.2, [place] # (Auto) 0.4, Eos # (Auto) 0.1, Baso # (Auto) 0.1, Sodium 137, Potassium 3.3 L, Chloride 106, Carbon Dioxide 20 L, Anion Gap 14.3, BUN 82 H, Creatinine 2.10 H, Estimated Creat Clear 28, Estimated GFR 30 L, Est GFR ( Amer) 37 L, Glucose 132 H, Calcium 8.8, Magnesium 1.9, Total Bilirubin 1.1, AST 24, ALT 21, Alkaline Phosphatase 64, Troponin I 0.03, NT-Pro-B Natriuret Pep 730 H, Total Protein 6.1 L, Albumin 3.7, Globulin 2.4, Albumin/Globulin Ratio 1.5, TSH 1.57, Thyroxine (T4) 10.3 01/01/24 20:40: Urine Color Yellow, Urine Appearance Clear, Urine pH 5.0, Ur Specific [place] 1.025, Urine Protein Negative, Urine Glucose (UA) Negative, Urine Ketones Trace, Urine Blood Negative, Urine Nitrate Negative, Urine Bilirubin Negative, Urine Urobilinogen 0.2, Ur Leukocyte Esterase Trace, Urine RBC None, Urine WBC 3-5, Ur Squamous Epith Cells 3-5, Urine Bacteria Trace, Hyaline Casts 3-5, Urine Mucus 1+, Urine Opiates Screen Positive H, Urine Methadone Screen Negative, Ur Barbituates Screen Negative, Ur Phencyclidine Scrn Negative, Ur Amphetamines Screen Negative, U Benzodiazepines Scrn Positive H, Urine Cocaine Screen Negative, U Marijuana (THC) Screen Negative 01/01/24 21:10: Lactate 1.4 01/01/24 23:25: Troponin I 0.04 H 01/02/24 02:20: Troponin I 0.05 H 01/02/24 09:30: Sodium 138, Potassium 3.4 L, Chloride 114 H, Carbon Dioxide 21 L , Anion Gap 6.4, BUN 65 H, Creatinine 1.70 H, Estimated Creat Clear 32, Estimated GFR 39 L, Est GFR ( Amer) 47 L D, Glucose 139 H, Calcium 7.8 L I & O for Last 24 hours: Intake & Output 12/30/23 12/31/23 01/01/24 01/02/24 23:59 23:59 23:59 23:59 Intake Total 170 / 170 Output Total 300 / 300 Balance -130 / -130 Weight 160 lb 150 lb 12.8 oz Narrative: EKG is sinus rhythm with nonspecific ST and T wave abnormalities and a rate of 69 bpm. Constitutional Constitutional: no acute distress and average body habitus *Routine HEENT Exam Head: Present normocephalic and atraumatic ENT: Present mucous membranes moist *Routine Neck Exam Neck: Present supple, full ROM and normal carotid upstroke; Absent JVD, carotid bruit or lymphadenopathy *Routine Respiratory Exam Respiratory: Present CTA bilaterally, normal respiratory effort, able to speak in complete sentences and symmetric chest movement *Routine Cardiovascular Exam Cardiovascular: Present RRR, Normal S1 and Normal S2; Absent murmur or gallop *Routine Abdominal Exam Abdominal: Present soft and normoactive bowel sounds; Absent tenderness, distended or organomegaly *Routine Extremities Exam Extremities: Present full ROM, pulses intact and normal capillary refill; Absent cyanosis, clubbing or edema *Routine Skin Exam Skin: Present intact and warm; Absent erythema *Routine Neurological Exam Neurological: Present alert, oriented X3 and CN II-XII intact; Absent sensory deficit or motor deficit Routine Psychiatric Exam Psychiatric: Present normal affect Meds Home Medications and Allergies Home Medications Medication Instructions Recorded Confirmed Type atorvastatin 80 mg tablet 80 mg PO HS 12/06/18 01/01/24 History pantoprazole 40 mg tablet,delayed 40 mg PO HS 12/06/18 01/01/24 History release temazepam 30 mg capsule (Restoril) 30 mg PO HS 12/06/18 01/01/24 History cyanocobalamin (vitamin B-12) 1,000 mcg PO DAILY 01/28/21 01/01/24 History 1,000 mcg tablet aspirin 81 mg chewable tablet 81 mg PO DAILY 01/29/21 01/01/24 History cholecalciferol (vitamin D3) 50 2,000 unit PO DAILY 01/29/21 01/01/24 History mcg (2,000 unit) tablet docusate sodium 100 mg capsule 100 mg PO BIDP PRN Constipation 01/29/21 01/01/24 History fluticasone propionate 50 2 spray intranasal DAILYP PRN 01/29/21 01/01/24 History mcg/actuation nasal allergy symptoms spray,suspension gabapentin 600 mg tablet 600 mg PO TID 01/29/21 01/01/24 History tamsulosin 0.4 mg capsule 0.4 mg PO HS urinary retention #30 04/23/22 01/01/24 Rx caps ferrous sulfate 325 mg (65 mg 325 mg PO DAILY 01/01/24 01/01/24 History iron) tablet hydrocodone 10 mg-acetaminophen 1 tab PO Q8H PRN Pain, Moderate 01/01/24 01/01/24 History 325 mg tablet fluoxetine 20 mg capsule 20 mg PO DAILY 01/02/24 01/02/24 History New Prescriptions to Start Prescriptions: Allergies Allergy/AdvReac Type Severity Reaction Status Date / Time No Known Allergies Allergy Verified 12/03/22 14:44 Assessment and Plan *Assessment and plan (1) Elevated troponin: Status: Acute Category: Medical Code(s): R79.89 - Other specified abnormal findings of blood chemistry (2) ASCVD (arteriosclerotic cardiovascular disease): Status: Chronic Category: Medical Code(s): I25.10 - Atherosclerotic heart disease of [place] coronary artery without angina pectoris (3) Hx of CABG: Status: Chronic Category: Surgical Code(s): Z95.1 - Presence of aortocoronary bypass graft (4) Hypertension: Status: Acute Qualifiers: Hypertension type: primary hypertension Qualified Code(s): I10 - Essential (primary) hypertension Category: Medical Code(s): I10 - Essential (primary) hypertension (5) Pacemaker: Status: Chronic Category: Medical Code(s): Z95.0 - Presence of cardiac pacemaker (6) Hyperlipidemia: Status: Acute Qualifiers: Hyperlipidemia type: mixed hyperlipidemia Qualified Code(s): E78.2 - Mixed hyperlipidemia Category: Medical Code(s): E78.5 - Hyperlipidemia, unspecified (7) UTI (urinary tract infection): Status: Acute Qualifiers: Hematuria presence: without hematuria Urinary tract infection type: site unspecified Qualified Code(s): N39.0 - Urinary tract infection, site not specified Category: Medical Code(s): N39.0 - Urinary tract infection, site not specified (8) CAN (acute kidney injury): Status: Acute Category: Medical Code(s): N17.9 - Acute kidney failure, unspecified Plan Plan: 1. The patient was admitted to the hospital with a UTI and acute kidney injury. He has been started on IV antibiotics. Will defer to his primary care provider. 2. The patient also had acute kidney injury and has been given IV fluids. His creatinine is down to 1.7 today from 2.1. Will repeat a BMP in the morning. 3. The patient did have an elevated troponin. This is likely a type II [place] from his dehydration and a UTI. He denies any chest pain. Will obtain an echocardiogram today. No plans for invasive left cardiac catheterization unless he has LV dysfunction noted on his echocardiogram. 4. The patient would benefit from an outpatient ischemic evaluation once he is discharged from the hospital and recovered from his acute kidney injury. He does see a director of institutional research in [facility], Dr. Strong who he states that he will continue his follow-up care with. 5. His blood pressure is well-controlled. 6. His LDL goal is less than 55. He is on a statin. 7. The patient does have a history of coronary artery disease. He is status post CABG and 2000. Continue aspirin and statin. 8. Further recommendations were made pending the patient's response to treatment and the results of his echocardiogram today. Thank you for the opportunity to help participate in the care of this patient. All recommendations and orders are per Dr. Del Real. Addendum: Echocardiogram shows a low normal ejection fraction at 50 to 55%. There is no significant valvular disease or wall motion abnormalities. No plans for invasive left cardiac catheterization at this time. The patient has an acute kidney injury right now which is most likely the stressor that caused the leak in his troponin. Once he recovers from his acute kidney injury consider gentle rehydration with Lasix. He would also benefit from an outpatient ischemic evaluation which can be done by his primary director of institutional research once he is discharged from the hospital. No further recommendations at this time from a cardiac standpoint. He is stable for discharge home from a cardiac standpoint once he is medically optimized by his primary care provider. He will need to follow-up with his primary director of institutional research in 1 to 2 weeks once he is discharged from the hospital.
--- NOTE | 2024-01-02 17:22 | PC.NURSE ---
spoke with Dr. Ayon about patient's gabapentin that he is demanding. Dr. Ayon stated it was ok to go ahead and give 2100 dose now but not to give another dose at 2100
[2024-01-02] MEDS: GABAPENTIN 600MG TABLET 600 MG PO (17:24)
--- NOTE | 2024-01-02 18:04 | PC.NURSE ---
PT is now with some confusion... refused iv fluids and wants to wait...
[2024-01-02] MEDS: PANTOPRAZOLE 40MG TABLET 40 MG PO (20:12)
[2024-01-02] MEDS: CEFTRIAXONE SODIUM 1 GM in 0.9 % SODIUM CHLORIDE 50 ML IV (20:22)
[2024-01-03] VITALS: BP 188/64; PULSE 50; RESP 16; TEMP 36.6; O2SAT 16
[2024-01-03] MEDS: LACTATED RINGERS 1000ML 1,000 ML 100 ML IV (01:04)
[2024-01-03] MEDS: HYDROCODONE 10MG/APAP 325MG TAB 1 TAB PO (01:32)
[2024-01-03 02:09] VITALS: BP 160/67
--- NOTE | 2024-01-03 03:16 | PC.NURSE ---
pt is a&ox4. room air. receiving iv fluids and abx. pt is incontinent of bladder, has brief on. complaints of back pain, meds given per mar. has rested good this shift. bed alarm on
[2024-01-03 04:00] VITALS: BP 151/72; PULSE 50; PULSE 64; RESP 16; TEMP 36.7; O2SAT 97; BMI 20.9
[2024-01-03 06:04] LABS: Basophils # 0.1 K/mm3 (0-0.2); Eosinophils # 0.5 K/mm3 (0.0-0.4); Eosinophils % 7.3 % (0.1-12.0); Hematocrit 33.3 % (42.0-52.0); Lymphocytes # 1.8 K/mm3 (0.7-4.5); Lymphocytes % 27.7 % (10-50); Mean Corpuscular Hemoglobin 30.2 pg (27.0-31.2); Mean Corpuscular Volume 91.4 fl (80-94); Mean Platelet Volume 8.5 fl (7.4-10.4); Monocytes # 0.3 K/mm3 (0.1-1.0); Monocytes % 4.2 % (1.7-9.3); Neutrophils % 59.9 % (37.0-80.0); Platelet Count 189 K/mm3 (142-424); Red Blood Count 3.65 M/mm3 (4.60-6.20); Red Cell Distribution Width 14.2 % (11.5-17.5); White Blood Count 6.7 K/mm3 (4.8-10.8)
[2024-01-03 06:15] LABS: Blood Urea Nitrogen 41 mg/dl (9-20); Calcium 8.8 mg/dl (8.4-10.2); Carbon Dioxide 26 mmol/L (22.0-30.0); Chloride 114 mmol/L (98-107); Chol/HDL Ratio 3.8 (1-3.5); Cholesterol 141 mg/dl (140-200); Creatinine Clearance Estimated 41 mL/min (50-200); Estimated Glomerular Filt Rate 53 ml/min (>60); GFR (African American) 64 ML/MIN (>60); Glucose 105 mg/dl (74-100); HDL Cholesterol 37 mg/dl (40-60); Sodium 142 mmol/L (136-145); Triglycerides 176 mg/dl (30-150); VLDL Cholesterol 35 mg/dL (0-40)
[2024-01-03 06:25] LABS: Direct LDL Cholesterol 85.61 mg/dL (100-129)
[2024-01-03] MEDS: GABAPENTIN 600MG TABLET 600 MG PO (07:59)
[2024-01-03] MEDS: POTASSIUM CHLORIDE 20MEQ TAB 20 MEQ PO (07:59)
[2024-01-03] MEDS: FLUOXETINE 20MG CAPSULE 20 MG PO (07:59)
[2024-01-03] MEDS: ASPIRIN EC 81MG TABLET 81 MG PO (07:59)
[2024-01-03 08:00] VITALS: BP 173/76; PULSE 50; PULSE 62; RESP 21; TEMP 36.7; O2SAT 98
--- NOTE | 2024-01-03 08:07 | EXP.ACUTE.PN ---
Subjective *Date: 01/03/24 *Time: 09:03 Interval history: Patient states he feels a little better today. He slept well and is eating better. He was able to sit up in the chair for 5-6 hours yesterday. He denies any pain other than his back and feet, which is chronic. Medical Exam Vital signs and Labs for Last 24 Hours: Vital Signs Temp Pulse Pulse Resp BP Pulse Ox O2 Del Method 01/03/24 08:00 98.0 F 62 21 173/76 H 98 Room Air 01/03/24 07:52 Room Air 01/03/24 06:38 Room Air 01/03/24 05:00 Room Air 01/03/24 04:00 50 L 01/03/24 04:00 98.1 F 64 16 151/72 H 97 01/03/24 03:00 Room Air 01/03/24 02:09 160/67 H 01/03/24 01:00 Room Air 01/03/24 00:00 50 L 01/03/24 00:00 98 F 50 L 16 188/64 H 16 L Room Air 01/02/24 23:00 Room Air 01/02/24 21:00 Room Air 01/02/24 20:00 50 L 01/02/24 20:00 97.7 F 54 L 16 157/54 H 96 01/02/24 20:00 Room Air 01/02/24 17:38 Room Air 01/02/24 17:00 Room Air 01/02/24 16:10 50 L 01/02/24 16:00 98 F 56 L 18 141/68 H 97 Room Air 01/02/24 13:43 Room Air 01/02/24 12:36 Room Air 01/02/24 12:09 50 L 01/02/24 10:24 Room Air 01/02/24 08:19 Room Air Intake and Output 01/02/24 01/03/24 01/03/24 19:59 03:59 11:59 Intake Total 1160 / 1950 550 / 1950 240 / 1950 Output Total 0 / 200 0 / 200 200 / 200 Balance 1160 / 1750 550 / 1750 40 / 1750 Intake: Intake, Oral Amount 60 / 300 240 / 300 Intake, Total IV Amount 1100 / 1650 550 / 1650 Ceftriaxone Sodium 1 gm In 0.9 50 / 50 % Sodium Chloride 50 ml @ 100 mls/hr IV ONCE ONE Rx#:[id number] Lactated Ringers 1000ML 1,000 1100 / 1600 500 / 1600 ml @ 100 mls/hr IV .Q10H [facility] Rx #:[id number] Output: Output, Urine Amount 0 / 200 0 / 200 200 / 200 Other: Number of Voids 0 Number of Unmeasured Voids 1 1 1 Weight 146 lb 9.6 oz Patient Weight 01/03/24 11:59 Weight 146 lb 9.6 oz Laboratory Results - last 24 hr 01/02/24 09:30: Sodium 138, Potassium 3.4 L, Chloride 114 H, Carbon Dioxide 21 L, Anion Gap 6.4, BUN 65 H, Creatinine 1.70 H, Estimated Creat Clear 32, Estimated GFR 39 L, Est GFR ( Amer) 47 L D, Glucose 139 H, Calcium 7.8 L 01/03/24 05:24: WBC 6.7 D, RBC 3.65 L, Hgb 11.0 L, Hct 33.3 L, MCV 91.4, MCH 30.2, MCHC 33.0, RDW 14.2, Plt Count 189 D, MPV 8.5, Neut % (Auto) 59.9, Lymph % (Auto) 27.7, [place] % (Auto) 4.2, Eos % (Auto) 7.3, Baso % (Auto) 1.0, Neut # (Auto) 4.0, Lymph # (Auto) 1.8, [place] # (Auto) 0.3, Eos # (Auto) 0.5 H, Baso # (Auto) 0.1, Sodium 142, Potassium 4.0, Chloride 114 H, Carbon Dioxide 26, Anion Gap 6.0, BUN 41 H D, Creatinine 1.30 H D, Estimated Creat Clear 41, Estimated GFR 53 L, Est GFR ( Amer) 64 D, Glucose 105 H D, Calcium 8.8, Triglycerides 176 H, Cholesterol 141, LDL Cholesterol Direct 85.61 L, VLDL Cholesterol 35, HDL Cholesterol 37 L, Cholesterol/HDL Ratio 3.8 H I & O for Labs for Last 24 Hours: Intake & Output 12/31/23 01/01/24 01/02/24 01/03/24 11:59 11:59 11:59 11:59 Intake Total 170 / 170 1950 / 1950 Output Total 300 / 300 200 / 200 Balance -130 / -130 1750 / 1750 Weight 150 lb 12.8 oz 146 lb 9.6 oz Constitutional: Present no acute distress Respiratory: Present CTA bilaterally Cardiac: Present Reg Rate and Rhythm and Regular Rate GI: Present soft; Absent distention or tenderness Extremities: Absent edema Skin: Present intact Neuro: Present alert and awake Assessment and Plan *Assessment and plan (1) UTI (urinary tract infection): Status: Acute Qualifiers: Hematuria presence: without hematuria Urinary tract infection type: site unspecified Qualified Code(s): N39.0 - Urinary tract infection, site not specified Category: Medical Code(s): N39.0 - Urinary tract infection, site not specified (2) CAN (acute kidney injury): Status: Acute Category: Medical Code(s): N17.9 - Acute kidney failure, unspecified (3) Altered mental status: Status: Acute Qualifiers: Altered mental status type: disorientation Qualified Code(s): R41.0 - Disorientation, unspecified Category: Medical Code(s): R41.82 - Altered mental status, unspecified (4) Hypokalemia: Status: Acute Category: Medical Code(s): E87.6 - Hypokalemia (5) Elevated troponin: Status: Acute Category: Medical Code(s): R79.89 - Other specified abnormal findings of blood chemistry (6) Pacemaker: Status: Chronic Category: Medical Code(s): Z95.0 - Presence of cardiac pacemaker (7) ASCVD (arteriosclerotic cardiovascular disease): Status: Chronic Category: Medical Code(s): I25.10 - Atherosclerotic heart disease of [place] coronary artery without angina pectoris (8) Hypertension: Status: Acute Qualifiers: Hypertension type: primary hypertension Qualified Code(s): I10 - Essential (primary) hypertension Category: Medical Code(s): I10 - Essential (primary) hypertension (9) BPH (benign prostatic hyperplasia): Status: Chronic Category: Medical Code(s): N40.0 - Benign prostatic hyperplasia without lower urinary tract symptoms (10) GERD (gastroesophageal reflux disease): Status: Chronic Category: Medical Code(s): K21.9 - Gastro-esophageal reflux disease without esophagitis (11) Hx of CABG: Status: Chronic Category: Surgical Code(s): Z95.1 - Presence of aortocoronary bypass graft (12) History of neuropathy: Status: Acute Category: Medical Code(s): Z86.69 - Personal history of other diseases of the nervous system and sense organs (13) Chronic pain of both feet: Status: Acute Category: Medical Code(s): M79.671 - Pain in right foot; M79.672 - Pain in left foot; G89.29 - Other chronic pain (14) Right foot drop: Status: Acute Category: Medical Code(s): M21.371 - Foot drop, right foot Plan WBC has normalized. Renal function is improving. Echo report still pending. Cultures pending. Will discuss further care with Dr. Ayon. Dr. Ayon entry - Saw patient, agree with above note. He has improved since admission. OK to discharge home with home health and oral antibiotics. Plan office f/u with Dr. Crain next week and with Dr. Morales in a few weeks.
--- NOTE | 2024-01-03 09:19 | PC.NURSE ---
clinic pharmacy called and patient iv removed.
--- NOTE | 2024-01-03 09:32 | PC.NURSE ---
Spoke to GENESIS RADHA'S SON AND he will be here to get his father around 11:00 or 12:00 today.
[2024-01-03 11:48] VITALS: BP 155/54; PULSE 56; RESP 20; TEMP 37.1; O2SAT 98
--- NOTE | 2024-01-06 12:36 | P.DS_ITS ---
General Admission date:: 01/01/24 Discharge date: 01/03/24 HPI HPI HPI: Mr. Brady is an 83-year-old male with a history of hypertension, hyperlipidemia, heart disease status post CABG and followed by Dr. Morales, BPH, chronic back pain, and COPD. He states for the past 2 weeks he has been feeling poorly. He has had dysuria and weakness. His son lives in [place] and his daughter lives near [place]. He states they check on him regularly. He lost his last year and lives alone with his dog. According to the ER note, the patient was at baseline on 12/30 but when his family checked on him yesterday, he seemed weak and was having difficulty walking and standing. EMS was called and transported him to the emergency room. He was given IV fluids and 1 g of Rocephin. He did have acute kidney injury along with mild leukocytosis. It was felt he had a UTI and was admitted for further evaluation and treatment. His chest x-ray showed nothing acute. His abdominal pelvic CT showed a punctate non obstructing right renal stone, hiatal hernia, and diverticulosis. This a.m., the patient seems to be more awake and alert. He can recall what happened over the past few days. He states he is feeling better this morning. Hospital Course Hospital Course Hospital Course: Patient was started on antibiotics on admission for UTI. After this his mental status did improve. He was started on hydration and potassium supplements. His creatinine did creep decreased from 2.1 down to 1.7. Troponins did elevate and cardiology was consulted. The following plan was documented as follows: Plan: 1. The patient was admitted to the hospital with a UTI and acute kidney injury. He has been started on IV antibiotics. Will defer to his primary care provider. 2. The patient also had acute kidney injury and has been given IV fluids. His creatinine is down to 1.7 today from 2.1. Will repeat a BMP in the morning. 3. The patient did have an elevated troponin. This is likely a type II CA from his dehydration and a UTI. He denies any chest pain. Will obtain an echocardiogram today. No plans for invasive left cardiac catheterization unless he has LV dysfunction noted on his echocardiogram. 4. The patient would benefit from an outpatient ischemic evaluation once he is discharged from the hospital and recovered from his acute kidney injury. He does see a building guard deputy sheriff in [facility], Dr. Strong who he states that he will continue his follow-up care with. 5. His blood pressure is well-controlled. 6. His LDL goal is less than 55. He is on a statin. 7. The patient does have a history of coronary artery disease. He is status post CABG and 2000. Continue aspirin and statin. 8. Further recommendations were made pending the patient's response to treatment and the results of his echocardiogram today. Addendum: Echocardiogram shows a low normal ejection fraction at 50 to 55%. There is no significant valvular disease or wall motion abnormalities. No plans for invasive left cardiac catheterization at this time. The patient has an acute kidney injury right now which is most likely the stressor that caused the leak in his troponin. Once he recovers from his acute kidney injury consider gentle rehydration with Lasix. He would also benefit from an outpatient ischemic evaluation which can be done by his primary building guard deputy sheriff once he is discharged from the hospital. No further recommendations at this time from a cardiac standpoint. He is stable for discharge home from a cardiac standpoint once he is medically optimized by his primary care provider. He will need to follow-up with his primary building guard deputy sheriff in 1 to 2 weeks once he is discharged from the hospital. By 01/03/2024 patient was feeling better with sleeping well and eating better. He had been able to sit up in a chair for 5 to 6 hours the previous day. He denied any pain other than his back and feet which was noted to be a chronic discomfort. Kidney function further improved and on this date he was felt to be stable to be discharged home. Cultures were pending at time of discharge. White blood cell count had normalized. Plan was for patient to follow-up with Dr. Crain the following week and with Dr. Morales in a few weeks. Patient was to have home health and oral antibiotics. All Meds as per medication reconciliation sheet. Exam Data for Last 24 hours Vital signs and Labs for Last 24 Hours: Temp Pulse Resp BP Pulse Ox O2 Del Method 98.8 F 56 L 20 155/54 H 98 Room Air 01/03/24 11:48 01/03/24 11:48 01/03/24 11:48 01/03/24 11:48 01/03/24 11:48 01/03/24 11:48 Microbiology Reports for the Last 24 Hours: Microbiology 01/01/24 21:00 Blood Blood Culture - Preliminary 01/01/24 21:10 Blood Blood Culture - Preliminary 01/01/24 Unknown Urine,Clean Catch Urine Culture - Final Narrative: Medical Exam Vital signs and Labs for Last 24 Hours: Vital Signs Temp Pulse Pulse Resp BP Pulse Ox O2 Del Method 01/03/24 08:00 98.0 F 62 21 173/76 H 98 Room Air 01/03/24 07:52 Room Air 01/03/24 06:38 Room Air 01/03/24 05:00 Room Air 01/03/24 04:00 50 L 01/03/24 04:00 98.1 F 64 16 151/72 H 97 01/03/24 03:00 Room Air 01/03/24 02:09 160/67 H 01/03/24 01:00 Room Air 01/03/24 00:00 50 L 01/03/24 00:00 98 F 50 L 16 188/64 H 16 L Room Air 01/02/24 23:00 Room Air 01/02/24 21:00 Room Air 01/02/24 20:00 50 L 01/02/24 20:00 97.7 F 54 L 16 157/54 H 96 01/02/24 20:00 Room Air 01/02/24 17:38 Room Air 01/02/24 17:00 Room Air 01/02/24 16:10 50 L 01/02/24 16:00 98 F 56 L 18 141/68 H 97 Room Air 01/02/24 13:43 Room Air 01/02/24 12:36 Room Air 01/02/24 12:09 50 L 01/02/24 10:24 Room Air 01/02/24 08:19 Room Air Intake and Output 01/02/24 01/03/24 01/03/24 19:59 03:59 11:59 Intake Total 1160 / 1950 550 / 1950 240 / 1950 Output Total 0 / 200 0 / 200 200 / 200 Balance 1160 / 1750 550 / 1750 40 / 1750 Intake: Intake, Oral Amount 60 / 300 240 / 300 Intake, Total IV Amount 1100 / 1650 550 / 1650 Ceftriaxone Sodium 1 gm In 0.9 50 / 50 % Sodium Chloride 50 ml @ 100 mls/hr IV ONCE ONE Rx#:[id number] Lactated Ringers 1000ML 1,000 1100 / 1600 500 / 1600 ml @ 100 mls/hr IV .Q10H [facility] Rx #:[id number] Output: Output, Urine Amount 0 / 200 0 / 200 200 / 200 Other: Number of Voids 0 Number of Unmeasured Voids 1 1 1 Weight 146 lb 9.6 oz Patient Weight 01/03/24 11:59 Weight 146 lb 9.6 oz Laboratory Results - last 24 hr 01/02/24 09:30: Sodium 138, Potassium 3.4 L, Chloride 114 H, Carbon Dioxide 21 L , Anion Gap 6.4, BUN 65 H, Creatinine 1.70 H, Estimated Creat Clear 32, Estimated GFR 39 L, Est GFR ( Amer) 47 L D, Glucose 139 H, Calcium 7.8 L 01/03/24 05:24: WBC 6.7 D, RBC 3.65 L, Hgb 11.0 L, Hct 33.3 L, MCV 91.4, MCH 30.2, MCHC 33.0, RDW 14.2, Plt Count 189 D, MPV 8.5, Neut % (Auto) 59.9, Lymph % (Auto) 27.7, [place] % (Auto) 4.2, Eos % (Auto) 7.3, Baso % (Auto) 1.0, Neut # (Auto) 4.0, Lymph # (Auto) 1.8, [place] # (Auto) 0.3, Eos # (Auto) 0.5 H, Baso # (Auto) 0.1, Sodium 142, Potassium 4.0, Chloride 114 H, Carbon Dioxide 26, Anion Gap 6.0, BUN 41 H D, Creatinine 1.30 H D, Estimated Creat Clear 41, Estimated GFR 53 L, Est GFR ( Amer) 64 D, Glucose 105 H D, Calcium 8.8, Triglycerides 176 H, Cholesterol 141, LDL Cholesterol Direct 85.61 L, VLDL Cholesterol 35, HDL Cholesterol 37 L, Cholesterol/HDL Ratio 3.8 H I & O for Labs for Last 24 Hours: Intake & Output 12/31/23 01/01/24 01/02/24 01/03/24 11:59 11:59 11:59 11:59 Intake Total 170 / 170 1950 / 1950 Output Total 300 / 300 200 / 200 Balance -130 / -130 1750 / 1750 Weight 150 lb 12.8 oz 146 lb 9.6 oz Constitutional: Present no acute distress Respiratory: Present CTA bilaterally Cardiac: Present Reg Rate and Rhythm and Regular Rate GI: Present soft; Absent distention or tenderness Extremities: Absent edema Skin: Present intact Neuro: Present alert and awake Results Data Completed and Pending Completed studies during hospitalization [Text1]: 01/01/2024 CXR FINDINGS: Tubes, catheters and devices: Cardiac pulse generator leads are unchanged in position. Lungs: Unremarkable. No consolidation. Pleural spaces: Unremarkable. No pleural effusion. No pneumothorax. Heart/Mediastinum: Unremarkable. No cardiomegaly. Bones/joints: Median sternotomy. Spinal fusion hardware seen at the cervicothoracic junction and in the lower thoracic spine. IMPRESSION: No acute findings. 01/01/2024 ABD/pelvis CT IMPRESSION: 1. Punctate nonobstructing right renal stone. 2. Hiatal hernia. 3. Diverticulosis. 4. Incidental/nonacute findings as described. 01/02/2024 ECHO Conclusion Normal biventricular systolic function. No significant valvular stenosis or regurgitation. Labs on day of discharge: Preliminary micro results at discharge 01/01/24 21:00 Blood Culture - Preliminary Blood 01/01/24 21:10 Blood Culture - Preliminary Blood DS: Diagnosis Discharge Diagnosis (1) UTI (urinary tract infection): Status: Acute Code(s): N39.0 - Urinary tract infection, site not specified Qualifiers: Hematuria presence: without hematuria Urinary tract infection type: site unspecified Qualified Code(s): N39.0 - Urinary tract infection, site not specified (2) CAN (acute kidney injury): Status: Acute Code(s): N17.9 - Acute kidney failure, unspecified (3) Altered mental status: Status: Acute Code(s): R41.82 - Altered mental status, unspecified Qualifiers: Altered mental status type: disorientation Qualified Code(s): R41.0 - Disorientation, unspecified (4) Hypokalemia: Status: Acute Code(s): E87.6 - Hypokalemia (5) Elevated troponin: Status: Acute Code(s): R79.89 - Other specified abnormal findings of blood chemistry (6) Pacemaker: Status: Chronic Code(s): Z95.0 - Presence of cardiac pacemaker (7) ASCVD (arteriosclerotic cardiovascular disease): Status: Chronic Code(s): I25.10 - Atherosclerotic heart disease of [place] coronary artery without angina pectoris (8) Hypertension: Status: Acute Code(s): I10 - Essential (primary) hypertension Qualifiers: Hypertension type: primary hypertension Qualified Code(s): I10 - Essential (primary) hypertension (9) BPH (benign prostatic hyperplasia): Status: Chronic Code(s): N40.0 - Benign prostatic hyperplasia without lower urinary tract symptoms (10) GERD (gastroesophageal reflux disease): Status: Chronic Code(s): K21.9 - Gastro-esophageal reflux disease without esophagitis (11) Hx of CABG: Status: Chronic Code(s): Z95.1 - Presence of aortocoronary bypass graft (12) History of neuropathy: Status: Acute Code(s): Z86.69 - Personal history of other diseases of the nervous system and sense organs (13) Chronic pain of both feet: Status: Acute Code(s): M79.671 - Pain in right foot; M79.672 - Pain in left foot; G89.29 - Other chronic pain (14) Right foot drop: Status: Acute Code(s): M21.371 - Foot drop, right foot Meds Home Medications and Allergies Home Medications Medication Instructions Recorded Confirmed Type atorvastatin 80 mg tablet 80 mg PO HS 12/06/18 01/01/24 History pantoprazole 40 mg tablet,delayed 40 mg PO HS 12/06/18 01/01/24 History release temazepam 30 mg capsule (Restoril) 30 mg PO HS 12/06/18 01/01/24 History cyanocobalamin (vitamin B-12) 1,000 mcg PO DAILY 01/28/21 01/01/24 History 1,000 mcg tablet aspirin 81 mg chewable tablet 81 mg PO DAILY 01/29/21 01/01/24 History cholecalciferol (vitamin D3) 50 2,000 unit PO DAILY 01/29/21 01/01/24 History mcg (2,000 unit) tablet docusate sodium 100 mg capsule 100 mg PO BIDP PRN Constipation 01/29/21 01/01/24 History fluticasone propionate 50 2 spray intranasal DAILYP PRN 01/29/21 01/01/24 History mcg/actuation nasal allergy symptoms spray,suspension gabapentin 600 mg tablet 600 mg PO TID 01/29/21 01/01/24 History tamsulosin 0.4 mg capsule 0.4 mg PO HS urinary retention #30 04/23/22 01/01/24 Rx caps ferrous sulfate 325 mg (65 mg 325 mg PO DAILY 01/01/24 01/01/24 History iron) tablet hydrocodone 10 mg-acetaminophen 1 tab PO Q8H PRN Pain, Moderate 01/01/24 01/01/24 History 325 mg tablet fluoxetine 20 mg capsule 20 mg PO DAILY 01/02/24 01/02/24 History cefuroxime axetil 500 mg tablet 500 mg PO Q12H 7 days #14 tabs 01/03/24 Rx New Prescriptions to Start Prescriptions: cefuroxime axetil Clay,William Allergies Allergy/AdvReac Type Severity Reaction Status Date / Time No Known Allergies Allergy Verified 12/03/22 14:44 Discharge Plan Disposition Patient Disposition: Home, Self-Care Condition: Fair Follow up Plan Follow up with: David Crain MD [Primary Care Provider] - 01/09/24 2:30 pm Gian Morales [Referring] - 01/23/24 2:45 pm Prescriptions/Medication Reconciliation: New cefuroxime axetil 500 mg tablet 500 mg PO Q12H 7 Days Qty: 14 0RF Continued atorvastatin 80 MG tablet 80 mg PO HS temazepam [Restoril] 30 MG capsule 30 mg PO HS pantoprazole 40 MG tablet,delayed release (DR/EC) 40 mg PO HS cyanocobalamin (vitamin B-12) 1,000 MCG tablet 1,000 mcg PO DAILY aspirin 81 MG tablet,chewable 81 mg PO DAILY gabapentin 600 MG tablet 600 mg PO TID docusate sodium 100 MG capsule 100 mg PO BIDP PRN (Reason: Constipation) fluticasone propionate 9.9 ML spray,suspension 2 spray intranasal DAILYP PRN (Reason: allergy symptoms) cholecalciferol (vitamin D3) 50 MCG tablet 2,000 unit PO DAILY tamsulosin 0.4 MG capsule 0.4 mg PO HS Qty: 30 2RF Rx Instructions: PT NEEDS REFILLS CALLED IN hydrocodone-acetaminophen 10-325 mg Tablet 1 tab PO Q8H PRN (Reason: Pain, Moderate) ferrous sulfate 325 mg (65 mg iron) Tablet 325 mg PO DAILY fluoxetine 20 mg capsule 20 mg PO DAILY Problem Reconciliation Problems Reviewed?: Yes Patient Discharge Instructions ACTIVITY: Continue current activity DIET: advance to your usual diet Patient Instructions: DI for Urinary Tract Infection (UTI), DI for Encephalopathy, DI for Acute Kidney Injury Providers Primary Care Provider: David Crain Admit Provider: William Ayon Attending Provider: William Ayon
--- NOTE | 2024-01-07 11:40 | CARE MANAGER ---
Attempted to contact patient related to hospital discharge x 2. Left VM. CATARINA Bolivar
== END 2024-01-03 12:57 | disposition home or self-care (01) ==
LOC: ER 20:06 → 2ND 22:42
PROVIDERS: Nurse Practitioner Family; Admitting Provider Family Medicine; Emergency Provider Emergency Medicine; PCP Family Medicine; Visit Provider Family Medicine
DX: N39.0 Urinary tract infection, site not specified (principal); N17.9 Acute kidney failure, unspecified; R41.0 Disorientation, unspecified; E87.6 Hypokalemia; R79.89 Other specified abnormal findings of blood chemistry; Z95.0 Presence of cardiac pacemaker; I25.10 Atherosclerotic heart disease of native coronary artery without angina pectoris; I10 Essential (primary) hypertension; N40.0 Benign prostatic hyperplasia without lower urinary tract symptoms; K21.9 Gastro-esophageal reflux disease without esophagitis; Z95.1 Presence of aortocoronary bypass graft; Z86.69 Personal history of other diseases of the nervous system and sense organs; M79.671 Pain in right foot; M79.672 Pain in left foot; G89.29 Other chronic pain; M21.371 Foot drop, right foot; E78.2 Mixed hyperlipidemia; J44.9 Chronic obstructive pulmonary disease, unspecified; Z79.899 Other long term (current) drug therapy
CPT/HCPCS: 36415; 71045; 74176; 80048; 80053; 80061; 80307; 81001; 82803; 83605; 83735; 83880; 84436; 84443; 84484; 85025; 87040; 87086; 93005; 93306; 97163; 97166; 99285; G0378; J0131; J0696

== ENCOUNTER 2025-01-25 17:13 | Observation (INO) | payer MEDICARE, OTHER, SELFPAY ==
[2025-01-25] VITALS (12 sets, daily range): BP systolic 147–241; BP diastolic 55–101; PULSE 71–77; RESP 16–18; TEMP 36.6–37; O2SAT 98–99; BMI 23.5
--- NOTE | 2025-01-25 18:01 | CT_ITS ---
PROCEDURE INFORMATION: Exam: CT Head Without Contrast Exam date and time: 01/25/2025 7:12 PM Age: 84 years old Clinical indication: Altered mental status/memory loss; Additional info: AMS TECHNIQUE: Imaging protocol: Computed tomography of the head without contrast. Radiation optimization: All CT scans at this facility use at least one of these dose optimization techniques: automated exposure control; mA and/or kV adjustment per patient size (includes targeted exams where dose is matched to clinical indication); or iterative reconstruction. COMPARISON: CT HEAD/BRAIN WO CON 04/22/2022 7:14 PM FINDINGS: Brain: No hemorrhage. Underlying periventricular white matter changes and parenchymal cortical volume loss. No mass effect. Cerebral ventricles: No ventriculomegaly. Paranasal sinuses: Visualized sinuses are unremarkable. No fluid levels. Mastoid air cells: Visualized mastoid air cells are well aerated. Bones: Unremarkable. No acute fracture. Soft tissues: Unremarkable. IMPRESSION: No acute intracranial abnormality.
[2025-01-25 18:06] LABS: Basophils % 0.3 % (0.1-2.0); Eosinophils % 0.1 % (0.1-12.0); Hematocrit 40.3 % (42.0-52.0); Hemoglobin 13.8 g/dL (14.1-18.0); Immature Granulocytes # 0.04 10^3uL; Immature Granulocytes % 0.3 %; Lymphocytes # 0.9 K/mm3 (0.7-4.5); Lymphocytes % 6.9 % (10-50); Mean Corpuscular HGB Conc 34.2 g/dL (31.8-35.4); Mean Corpuscular Hemoglobin 29.5 pg (27.0-31.2); Mean Corpuscular Volume 86.1 fl (80-94); Mean Platelet Volume 10.5 fl (7.4-10.4); Monocytes # 0.8 K/mm3 (0.1-1.0); Monocytes % 6.2 % (1.7-9.3); Neutrophils # 10.8 K/mm3 (1.8-7.8); Neutrophils % 86.2 % (37.0-80.0); Nucleated Red Blood Cells # 0 10^3/uL; Nucleated Red Blood Cells % 0 %; Platelet Count 257 K/mm3 (142-424); Red Blood Count 4.68 M/mm3 (4.60-6.20); Red Cell Distribution Width 12.8 % (11.5-17.5); Red Cell Distribution Width-SD 39.8 fL; White Blood Count 12.6 K/mm3 (4.8-10.8)
[2025-01-25 18:12] LABS: Alanine Aminotransferase 20 U/L (12-78); Albumin Level 4.6 g/dl (3.5-5.0); Albumin/Globulin Ratio 1.7 (1.1-1.8); Alkaline Phosphatase 84 U/L (38-126); Anion Gap 16.4 mEq/L (5-15); Aspartate Amino Transferase 29 U/L (17-59); Bilirubin,Total 1.4 mg/dl (0.2-1.3); Blood Urea Nitrogen 21 mg/dl (9-20); Calcium 9.6 mg/dl (8.4-10.2); Carbon Dioxide 22 mmol/L (22.0-30.0); Chloride 105 mmol/L (98-107); Creatinine Clearance Estimated 41 mL/min (50-200); Estimated Glomerular Filt Rate 53 ml/min (>60); GFR (African American) 64 ML/MIN (>60); Globulin 2.7 g/dL (1.3-3.2); Glucose 153 mg/dl (74-100); Potassium 4.4 mmoL/L (3.5-5.1); Sodium 139 mmol/L (136-145); Total Protein,Serum 7.3 g/dl (6.3-8.2)
--- NOTE | 2025-01-25 18:19 | ECG_ITS ---
APPROVED REPORT Exam: Resting ECG HR:73 bpm ECG Measurements Heart Rate 73 AXES FL 181 P 62 QRSd 86 QRS 55 QT 392 T 154 QTc 418 Conclusion SINUS RHYTHM Nonspecific ST changes not significantly changed from prior EKG, No STEMI Electronically signed by : DINORA BRIONES, 01/26/2025 20:02:18
[2025-01-25 18:29] LABS: T4 (Thyroxine) 13.6 ug/dl (5.53-11.0)
[2025-01-25 18:34] LABS: Troponin I 0.01 ng/ml (0.00-0.034)
[2025-01-25 18:43] LABS: Thyroid Stimulating Hormone 1.59 uIU/mL (0.465-4.68)
--- NOTE | 2025-01-25 19:07 | PC.NURSE ---
pt is in ct.
--- NOTE | 2025-01-25 19:21 | ED_ITS ---
Discharge Plan Disposition Chief Complaint: Urogenital-Male Clinical Impressions Clinical Impression: Acute alteration in mental status, Hypertensive crisis, Acute UTI Discharge ED Provider: Fani Wheatley General Adult HPI General Chief complaint: Urogenital-Male Stated complaint: confusion, poss uti Time Seen by Provider: 01/25/25 17:40 Mode of Arrival: Wheelchair Source of Information: Patient and Relative Description of Symptoms (Recalled from ER Triage Doc. by RN): pts presents with AMS. pt is A&OX4 at baseline, today he is disoriented to time and place. pt c/o urinary incontinence, frequent urination, and foul smelling urine. pt denies pain. pts son reports this is how he presents with a UTI. History of Present Illness HPI narrative: This patient is an 84-year-old male with a history of hypertension, hyperlipidemia, BPH, GERD, renal insufficiency, CAD status post CABG, and prior UTIs presenting to the emergency department for evaluation with concern for confusion. Family at bedside states that he has seemed a little bit confused today and has seen people who are no longer alive. He also has frequent urination and foul-smelling urine. They state this is similar to prior urinary tract infections in the past, which have similarly caused confusion before. Patient states that he is feeling fine and denies any concerns or complaints. No headache, vision changes, numbness, tingling, chest pain, shortness of breath, cough, congestion, abdominal pain, nausea, vomiting, changes in bowel movements, or other concerns. Related Data Home Medications ?Medication ?Instructions ?Recorded ?Confirmed atorvastatin 80 mg tablet 80 mg PO HS 12/06/18 01/01/24 pantoprazole 40 mg tablet,delayed 40 mg PO HS 12/06/18 01/01/24 release temazepam 30 mg capsule (Restoril) 30 mg PO HS 12/06/18 01/01/24 cyanocobalamin (vitamin B-12) 1,000 mcg PO DAILY 01/28/21 01/01/24 1,000 mcg tablet aspirin 81 mg chewable tablet 81 mg PO DAILY 01/29/21 01/01/24 cholecalciferol (vitamin D3) 50 2,000 unit PO DAILY 01/29/21 01/01/24 mcg (2,000 unit) tablet docusate sodium 100 mg capsule 100 mg PO BIDP PRN Constipation 01/29/21 01/01/24 fluticasone propionate 50 2 spray intranasal DAILYP PRN 01/29/21 01/01/24 mcg/actuation nasal allergy symptoms spray,suspension gabapentin 600 mg tablet 600 mg PO TID 01/29/21 01/01/24 ferrous sulfate 325 mg (65 mg 325 mg PO DAILY 01/01/24 01/01/24 iron) tablet hydrocodone 10 mg-acetaminophen 1 tab PO Q8H PRN Pain, Moderate 01/01/24 01/01/24 325 mg tablet fluoxetine 20 mg capsule 20 mg PO DAILY 01/02/24 01/02/24 Previous Rx's ?Medication ?Instructions ?Recorded tamsulosin 0.4 mg capsule 0.4 mg PO HS urinary retention #30 04/23/22 caps cefuroxime axetil 500 mg tablet 500 mg PO Q12H 7 days #14 tabs 01/03/24 Allergies Allergy/AdvReac Type Severity Reaction Status Date / Time No Known Allergies Allergy Verified 12/03/22 14:44 [facility] Disclaimer: The information contained in this section may have been updated after the patient was seen, as this information can be updated by other users. Medical History Encephalopathy Encounter for wound care Open wound of right great toe History of neuropathy Incurvated nail Cellulitis of great toe of right foot Keratosis Foot pain Callus of foot Arthritis Pacemaker Postoperative pain Superficial contusion of neck Dehydration Gastroenteritis due to norovirus Elevated troponin Osteomyelitis of spine History of peptic ulcer ASCVD (arteriosclerotic cardiovascular disease) Hypertension BPH (benign prostatic hyperplasia) GERD (gastroesophageal reflux disease) Right foot drop Chronic pain of both feet Bronchitis Neuropathy Hyperlipidemia History of pacemaker Surgical History H/O repair of rotator cuff Hx of CABG Previous back surgery History of cholecystectomy Family History Other Cancer Coronary artery disease Hypertension Stroke Social History Smoking Status: Former smoker tobacco type: cigarettes packs per day: 2 alcohol intake: never current occupational status: retired Travel in the last 8 weeks?: None household members: spouse housing: house caffeine: Yes Have you lived/traveled outside [place] in past 30 days?: No Contact w/someone who lives/traveled outside [place] past 30 days?: No Exposure to someone with infectious disease in past 14 days?: No Do you have a fever (greater than 100.4 F or 38 C)?: No Have you tested positive for COVID-19?: No Exposed to someone with COVID-19 in past 14 days?: No Do you have a sore throat?: No Do you have a cough?: No Do you have any weakness?: No Do you have any diarrhea?: No Are you experiencing any unusual bleeding?: No Do you have any muscle aches/pain?: No Do you have any abdominal pain?: No Are you experiencing loss of taste or smell?: No Other Medical History Have you received the Flu Vaccine for this season: No Have you received the Pneumonia Vaccine: No ROS Obtained: Yes All systems reviewed & no additional complaints except as documented Physical Exam General General appearance: alert and in no apparent distress Head Head exam: atraumatic and normocephalic Eye Eye exam: Present normal appearance, PERRL and EOMI ENT ENT exam: Present normal exam, normal oropharynx, mucous membranes moist and normal external ear exam Neck Neck exam: Present normal inspection, full ROM and trachea midline; Absent tenderness Chest Chest inspection: Present normal inspection and symmetric chest wall rise; Absent tenderness Respiratory Respiratory exam: Present normal lung sounds bilaterally; Absent respiratory distress, wheezes, stridor or accessory muscle use Cardiovascular Cardiovascular exam: Present regular rate and normal rhythm Abdominal Exam Abdominal exam: Present soft; Absent distention, tenderness or guarding Extremities Exam Extremities exam: Present normal inspection, full ROM and normal capillary refill; Absent tenderness or edema Back Exam Back exam: Present normal inspection and full ROM; Absent tenderness Neurological Exam Neurological exam: Present alert, CN II-XII intact and normal gait; Absent oriented X3 or motor sensory deficit Psychiatric Psychiatric exam: Present normal affect and normal mood Skin Skin exam: Present warm and dry Medical Decision Making Medical Records Medical records reviewed: Yes I reviewed the patient's medical records. Screening: Per USPSTF and CDC recommendations, given the prevalence of disease in our region, it is our hospital?s policy to screen for HIV and viral Hepatitis for all patients aged 18 and over and those with ongoing risk factors. [facility] Inquiry Pt receiving controlled substance: No Vital Signs: 01/25/25 17:30 01/25/25 17:32 01/25/25 18:00 Temperature 97.9 F Temperature Source Oral Pulse Rate 71 76 Pulse Rate [Left] 72 Respiratory Rate 16 Blood Pressure 152/81 H 168/101 H Blood Pressure [Right Arm] 152/81 H Blood Pressure Mean 130 123 Blood Pressure Mean [Right Arm] 104 Blood Pressure Source Blood Pressure Source [Right Arm] Automatic Cuff Blood Pressure Position [Right Arm] Sitting 02 Sat by Pulse Oximetry 99 98 99 Oxygen Delivery Method Room Air 01/25/25 19:00 01/25/25 19:30 01/25/25 20:29 Temperature Temperature Source Pulse Rate 73 77 72 Pulse Rate [Left] Respiratory Rate Blood Pressure 167/74 H 147/82 H 241/85 H Blood Pressure [Right Arm] Blood Pressure Mean Blood Pressure Mean [Right Arm] Blood Pressure Source Blood Pressure Source [Right Arm] Blood Pressure Position [Right Arm] 02 Sat by Pulse Oximetry 98 99 99 Oxygen Delivery Method 01/25/25 20:30 01/25/25 20:37 01/25/25 20:42 Temperature 98.6 F Temperature Source Oral Pulse Rate 73 75 Pulse Rate [Left] Respiratory Rate 16 Blood Pressure 221/80 H 189/57 H 189/55 H Blood Pressure [Right Arm] Blood Pressure Mean 127 Blood Pressure Mean [Right Arm] Blood Pressure Source Automatic Cuff Blood Pressure Source [Right Arm] Blood Pressure Position [Right Arm] 02 Sat by Pulse Oximetry 99 99 Oxygen Delivery Method Room Air Lab Data Lab results reviewed: Yes I reviewed the patient's lab results. Lab Results 01/25/25 17:25: WBC 12.6 H, RBC 4.68, Hgb 13.8 L, Hct 40.3 L, MCV 86.1, MCH 29.5, MCHC 34.2, RDW 12.8, Plt Count 257, MPV 10.5 H, Neut % (Auto) 86.2 H, L ymph % (Auto) 6.9 L, Piatt % (Auto) 6.2, Eos % (Auto) 0.1, Baso % (Auto) 0.3, N eut # (Auto) 10.8 H, Lymph # (Auto) 0.9, [place]att # (Auto) 0.8, Eos # (Auto) 0.0, Baso # (Auto) 0.0, Sodium 139, Potassium 4.4, Chloride 105, Carbon Dioxide 22, A nion Gap 16.4 H, BUN 21 H, Creatinine 1.30 H, Estimated Creat Clear 41, E stimated GFR 53 L, Est GFR ( Amer) 64, Glucose 153 H, Calcium 9.6, Total Bilirubin 1.4 H, AST 29, ALT 20, Alkaline Phosphatase 84, Troponin I 0.01, Total Protein 7.3, Albumin 4.6, Globulin 2.7, Albumin/Globulin Ratio 1.7, TSH 1.59, T hyroxine (T4) 13.6 H 01/25/25 19:47: Urine Color Dark yellow, Urine Appearance Clear, Urine pH 6.0, Ur Specific [place] 1.025, Urine Protein 1+ A, Urine Glucose (UA) Negative, Urine Ketones 1+, Urine Blood Negative, Urine Nitrate Negative, Urine Bilirubin Negative, Urine Urobilinogen 1.0, Ur Leukocyte Esterase Negative, Urine RBC Occasional, Urine WBC Occasional, Ur Squamous Epith Cells Occasional, Urine Bacteria Trace 01/25/25 17:25 01/25/25 17:25 Orders (Tests/Meds): ED MEDICATIONS Generic Name Dose Route Start Last Admin Trade Name Freq PRN Reason Stop Dose Admin Acetaminophen 650 mg 01/25/25 20:40 Acetaminophen 325mg Tab PO 02/24/25 20:39 Q6HP PRN Fever or Mild Pain (1-3) Lactated Ringer's 1,000 mls @ 999 mls/hr 01/25/25 20:13 01/25/25 20:33 Lactated Ringer's 1000 Ml Bag IV 01/25/25 21:13 999 mls/hr .[id number] ONE Administration Discontinued Medications Generic Name Dose Route Start Last Admin Trade Name Freq PRN Reason Stop Dose Admin Gabapentin 600 mg 01/25/25 19:36 01/25/25 19:43 Gabapentin 300mg Capsule PO 01/25/25 19:37 600 mg ONCE ONE Administration Labetalol HCl 10 mg 01/25/25 20:32 Labetalol 5mg/Ml 20ml Mdv IV 01/25/25 20:33 ONCE ONE Levofloxacin 750 mg 01/25/25 20:26 01/25/25 20:33 Levofloxacin 750 Mg Tablet PO 01/25/25 20:27 750 mg ONCE ONE Administration ORDERS Category Date Time Status CT head/brain wo con Stat Cat Scan 01/25/25 18:01 Completed CBC w/Auto Diff [Complete Blood Count Auto Diff] Stat Lab 01/25/25 17:25 Completed CMP [Comprehensive Metabolic Panel] Stat Lab 01/25/25 17:25 Completed T4 (Thyroxine) Stat Lab 01/25/25 17:25 Completed TSH [Thyroid Stimulating Hormone] Stat Lab 01/25/25 17:25 Completed Trop I [Troponin I] Stat Lab 01/25/25 17:25 Completed Troponin I Q3H Lab 01/25/25 21:15 Ordered Troponin I Q3H Lab 01/26/25 00:15 Ordered UA [Urinalysis and Microscopic] Stat Lab 01/25/25 19:47 Completed Urine Culture Stat Micro 01/25/25 19:47 Received ECG Data Tracing #1: I reviewed this ECG and interpreted as documented below: Normal sinus rhythm with ventricular rate of [address]/T wave changes without acute STEMI. No changes from prior EKG. ECG initial impression date: 01/25/25 ECG initial impression time: 18:21 Medical Decision Narrative: In summary, this patient is a 84-year-old male presenting to the Emergency Department for evaluation of confusion and urinary type symptoms. Differential diagnoses considered include but are not limited to UTI, CAN, dehydration, CVA, electrolyte derangements, other metabolic cause of encephalopathy. Ruling out the most morbid conditions drove assessment. It should be noted patient's history includes hypertension hyperlipidemia, GERD, CAD, BPH, renal insufficiency which may or may not be at goal therapy. This complicates all aspects of care by increasing patient's risk for morbidity. I reviewed patient's past medical records and noted prior admission for UTI/CAN and confusion of the past about a year ago. On exam, the patient is lying in bed in no acute distress. He is confused but is neurologically intact without any focal deficit. Cardiopulmonary and abdominal exams are benign and he has normal vitals on cardiac telemetry. Workup included CBC, CMP, urinalysis, TSH, T4, EKG, CT head without contrast. I independently interpreted CT scan prior to the radiologist read and noted no intracranial hemorrhage, no large space-occupying lesion. Please see their read for final interpretation. Labs were obtained that demonstrated mild leukocytosis. Kidney function is around his baseline. No other acutely concerning abnormalities on labs at this time. Urinalysis demonstrates occasional red blood cells, white blood cells, and some bacteria. He does have hyaline casts and mucus. He does have proteinuria as well. He was given a bolus of IV fluids with concern for possible dehydration.. On reassessment, patient continues to have no concerns or complaints but is very pleasantly confused. He still does not have any focal neurologic deficits. He became very hypertensive with systolics in the 240s. He is not sure if he takes blood pressure medication or not, neither is a sign. I do not see blood pressure medication listed in his chart. Ultimately, given his severe confusion, possible UTI, and severe hypertension, I feel he would benefit from admission. I ordered labetalol to have as needed for systolic greater than 200 and I ordered Levaquin for his UTI. I had an interactive discussion with Dr. Urban who admitted the patient in stable condition Critical Care Critical Care Time Critical Care Time: Yes Attestation: On 01/25/25, the high probability of a clinically significant, sudden or life threatening deterioration of the following system(s) required my full and direct attention, intervention and personal management. The time I documented below is in addition to time spent performing reported procedures but includes the following listed in this critical care notation. Total Time Total Critical Care Time: 35
--- NOTE | 2025-01-25 19:31 | PC.NURSE ---
Pt given urinal for UA. Pt family also asking for night dose of gabapentin.
[2025-01-25] MEDS: GABAPENTIN 300MG CAPSULE 600 MG PO (19:43)
[2025-01-25 19:50] LABS: Microscopic, Urine URINE MICROSCOPIC (MICROSCOPIC)
[2025-01-25 19:51] LABS: Appearance,Urine CLEAR (Clear); Blood, Urine Negative (Negative); Glucose,Urine (UA) Negative (Negative); Ketones,Urine 1+ (Negative); Leukocyte Esterase,Urine Negative (Negative); Nitrate,Urine Negative (Negative); Protein,Urine 1+ (Negative); Specific Gravity, Urine 1.025 (1.005-1.030)
[2025-01-25 19:53] LABS: Color,Urine Dark Yellow (Yellow)
[2025-01-25 19:54] LABS: Bilirubin,Urine Negative (Negative)
[2025-01-25 20:21] LABS: Bacteria,Urine Trace /lpf; RBC,Urine Occasional #/hpf (0-3); Squamous Epithelial Cell,Urine Occasional #/hpf (0-5); WBC,Urine Occasional #/hpf (0-3)
[2025-01-25] MEDS: LACTATED RINGERS 1000ML 1,000 ML 999 ML IV (20:33)
[2025-01-25] MEDS: levoFLOXacin 750 MG TABLET PO (20:33)
[2025-01-25 22:30] LABS: Troponin I 0.02 ng/ml (0.00-0.034)
[2025-01-25] MEDS: TAMSULOSIN 0.4MG CAPSULE 0.4 MG PO (22:44)
[2025-01-25] MEDS: ATORVASTATIN 40MG TABLET 80 MG PO (22:44)
[2025-01-26 00:50] LABS: Troponin I 0.02 ng/ml (0.00-0.034)
[2025-01-26 04:00] VITALS: BP 113/82; PULSE 93; RESP 14; TEMP 37.1; O2SAT 97; BMI 23.3
[2025-01-26] MEDS: ONDANSETRON 4MG/2ML VIAL 4 MG IV (05:16)
[2025-01-26 06:16] LABS: Adenovirus F 40/41, stool Not Detected (NotDetected); Astrovirus Not Detected (NotDetected); Campylobacter Not Detected (NotDetected); Clostridium Difficile A/B, PCR Not Detected (NotDetected); Cryptosporidium Not Detected (NotDetected); Cyclospora Cayetanesis Not Detected (NotDetected); Entamoeba histolytica Not Detected (NotDetected); Enteroaggregative E coli Not Detected (NotDetected); Enteropathogenic E coli Not Detected (NotDetected); Enterotoxigenic E coli Not Detected (NotDetected); Giardia lamblia Not Detected (NotDetected); Norovirus Not Detected (NotDetected); Plesimonas Shigalloides, PCR Not Detected (NotDetected); Rotavirus A Not Detected (NotDetected); Salmonella, PCR Not Detected (NotDetected); Sapovirus Not Detected (NotDetected); Shiga-like toxin E coli Not Detected (NotDetected); Shigella Enterovasive E coli Not Detected (NotDetected); Vibrio Cholerae Not Detected (NotDetected); Vibrio, PCR Not Detected (NotDetected); Yersinia Entercolitica, PCR Not Detected (NotDetected)
--- NOTE | 2025-01-26 07:37 | PC.NURSE ---
Pt. was admitted overnight with AMS and possible UTI. Upon arrival to floor. Pt was alert to name, birthday, Month, Year , and where he was. Pt. c/o generalized weakness. and difficulty getting around. Pt. lives by himself. Pt. had multiple liquid stools overnight and was feeling nauseated. Pt. medicated with Zofran for nausea. Pt. did not sleep well do to multiple liquid stools. Zofran helped the nausea. Pt. remained Alert and orientated this shift. Pt. on room air. Personal items and call richard in reach.
--- NOTE | 2025-01-26 07:49 | HMH.PHAINT1 ---
Pharmacy Intervention Comments: HOME MEDICATION LIST VERIFIED USING LIST FROM OUTPATIENT PHARMACY
[2025-01-26 08:00] VITALS: BP 107/63; PULSE 90; RESP 19; TEMP 36.3; O2SAT 96
--- NOTE | 2025-01-26 08:37 | P.HP_ITS ---
History of Present Illness *Admission Date: 01/25/25 *Reason for visit:: Altered mental status *History of present illness: Mr. Brady is an 84-year-old male patient with a history of COPD, ASCVD followed by Dr. Morales, hyperlipidemia, arthritis, peptic ulcer disease, hiatal hernia, diverticulosis, depression, BPH followed by Dr. Cornell urologist in [place], chronic back pain followed by [facility], tinnitus, hyperglycemia, and right foot drop, who was brought to the [facility] emergency room for evaluation by his son with altered mental status. Patient does not recall why he came to the hospital or the events of yesterday. Per son patient has been experiencing urinary incontinence, frequent urination, and foul-smelling urine. Patient recalls just voiding frequently. He normally sees urology about every 3 months for PSA. He has noted to have previous urinary tract infections which has also caused confusion. With evaluation in the emergency room patient did become hypertensive. White blood cell count was found to be 12,600 with a hemoglobin of 13.8 and hematocrit of 40.3. Total bilirubin was 1.4; T4 was 13.6. Urinalysis showed 1+ protein, positive ketones negative nitrate, negative leuk esterase, occasional RBC ANd WBC and a trace of urine bacteria. In the emergency room he did receive a liter of IV fluids. Head CT revealed no acute intracranial abnormalities. This a.m. patient denies chest pain and shortness of breath. He states he has an occasional cough which is productive of clear sputum. He relates that he does void frequently and has for a long period of time. He is eating breakfast without difficulty. Since admission patient has developed diarrhea. He states he was up all during the night with diarrhea. Diarrhea panel has been ordered. Prior to admission he states his bowels move irregularly and sometimes he is constipated. He cannot recall his last bowel movement prior to admission [facility] Disclaimer: The information contained in this section may have been updated after the patient was seen, as this information can be updated by other users. Medical History Encephalopathy Encounter for wound care Open wound of right great toe History of neuropathy Incurvated nail Cellulitis of great toe of right foot Keratosis Foot pain Callus of foot Arthritis Pacemaker Postoperative pain Superficial contusion of neck Dehydration Gastroenteritis due to norovirus Elevated troponin Osteomyelitis of spine History of peptic ulcer ASCVD (arteriosclerotic cardiovascular disease) Hypertension BPH (benign prostatic hyperplasia) GERD (gastroesophageal reflux disease) Right foot drop Chronic pain of both feet Bronchitis Neuropathy Hyperlipidemia History of pacemaker Surgical History H/O repair of rotator cuff Hx of CABG Previous back surgery History of cholecystectomy Family History Other Cancer Coronary artery disease Hypertension Stroke Social History (Updated 01/25/25 @ 21:27 by Dasha Skinner RN) Smoking Status: Former smoker tobacco type: cigarettes packs per day: 2 alcohol intake: never current occupational status: retired Travel in the last 8 weeks?: None household members: spouse housing: house caffeine: Yes Have you lived/traveled outside [place] in past 30 days?: No Contact w/someone who lives/traveled outside US past 30 days?: No Exposure to someone with infectious disease in past 14 days?: No Do you have a fever (greater than 100.4 F or 38 C)?: No Have you tested positive for COVID-19?: No Exposed to someone with COVID-19 in past 14 days?: No Do you have a sore throat?: No Do you have a cough?: No Do you have any weakness?: No Do you have any diarrhea?: No Are you experiencing any unusual bleeding?: No Do you have any muscle aches/pain?: No Do you have any abdominal pain?: No Are you experiencing loss of taste or smell?: No Other Medical History Have you received the Flu Vaccine for this season: Yes Have you received the Pneumonia Vaccine: Yes Review of Systems Constitutional Constitutional: Denies body ache(s), Denies fever(s), Denies frequent falls and Denies headache(s) Eyes Eyes: Denies change in vision ENT Ears, Nose, Mouth, and Throat: Denies disequilibrium, Denies dizziness, Denies otalgia, Denies headache(s), Reports nasal discharge, Denies post nasal drip, Denies sore throat and Reports vertigo *Cardiovascular Cardiovascular: Denies chest pain, Denies dyspnea, Denies edema, Denies irregular heart rhythm and Denies syncope *Respiratory Respiratory: Reports cough (Infrequent) and Denies dyspnea *Gastrointestinal Gastrointestinal: Reports constipation, Reports loose stools and Reports nausea *Genitourinary Genitourinary: Denies difficulty urinating, Denies dysuria and Reports urinary frequency *Musculoskeletal Musculoskeletal: Denies abnormal gait, Reports arthralgias (Multiple joints) and Reports back pain *Neurologic Neurologic: Denies abnormal gait, Denies confusion, Denies convulsions, Denies disequilibrium, Denies dizziness, Denies frequent falls, Denies headache(s), Denies syncope and Reports vertigo Psychiatric Psychiatric: Denies confusion and Reports depression Meds Home Medications and Allergies Home Medications ?Medication ?Instructions ?Recorded ?Confirmed ?Type atorvastatin 80 mg tablet 80 mg PO HS 12/06/18 01/25/25 History pantoprazole 40 mg tablet,delayed 40 mg PO HS 12/06/18 01/25/25 History release temazepam 30 mg capsule (Restoril) 30 mg PO HS 12/06/18 01/25/25 History cyanocobalamin (vitamin B-12) 1,000 mcg PO DAILY 01/28/21 01/25/25 History 1,000 mcg tablet aspirin 81 mg chewable tablet 81 mg PO DAILY 01/29/21 01/25/25 History cholecalciferol (vitamin D3) 50 2,000 unit PO DAILY 01/29/21 01/25/25 History mcg (2,000 unit) tablet docusate sodium 100 mg capsule 100 mg PO BIDP PRN Constipation 01/29/21 01/25/25 History gabapentin 600 mg tablet 600 mg PO TID 01/29/21 01/25/25 History ferrous sulfate 325 mg (65 mg 325 mg PO DAILY 01/01/24 01/25/25 History iron) tablet hydrocodone 10 mg-acetaminophen 1 tab PO Q8H PRN Pain, Moderate 01/01/24 01/25/25 History 325 mg tablet fluoxetine 20 mg capsule 20 mg PO DAILY 01/02/24 01/25/25 History meloxicam 15 mg tablet 15 mg PO DAILY 01/25/25 01/25/25 History methocarbamol 500 mg tablet 500 mg PO TID 01/25/25 01/25/25 History tamsulosin 0.4 mg capsule 0.4 mg PO HS 01/26/25 01/25/25 History New Prescriptions to Start Prescriptions: Allergies Allergy/AdvReac Type Severity Reaction Status Date / Time No Known Allergies Allergy Verified 12/03/22 14:44 Exam Data for Last 24 hours Vital signs and Labs for Last 24 Hours: Temp Pulse Resp BP Pulse Ox O2 Del Method 97.4 F L 90 19 107/63 L 96 Room Air 01/26/25 08:00 01/26/25 08:00 01/26/25 08:00 01/26/25 08:00 01/26/25 08:00 01/26/25 08:00 Laboratory Results - last 24 hr 01/25/25 17:25: WBC 12.6 H, RBC 4.68, Hgb 13.8 L, Hct 40.3 L, MCV 86.1, MCH 29.5, MCHC 34.2, RDW 12.8, Plt Count 257, MPV 10.5 H, Neut % (Auto) 86.2 H, Lymph % (Auto) 6.9 L, [place] % (Auto) 6.2, Eos % (Auto) 0.1, Baso % (Auto) 0.3, Neut # (Auto) 10.8 H, Lymph # (Auto) 0.9, [place] # (Auto) 0.8, Eos # (Auto) 0.0, Baso # (Auto) 0.0, Sodium 139, Potassium 4.4, Chloride 105, Carbon Dioxide 22, Anion Gap 16.4 H, BUN 21 H, Creatinine 1.30 H, Estimated Creat Clear 41, Estimated GFR 53 L, Est GFR ( Amer) 64, Glucose 153 H, Calcium 9.6, Total Bilirubin 1.4 H, AST 29, ALT 20, Alkaline Phosphatase 84, Troponin I 0.01, Total Protein 7.3, Albumin 4.6, Globulin 2.7, Albumin/Globulin Ratio 1.7, TSH 1.59, Thyroxine (T4) 13.6 H 01/25/25 19:47: Urine Color Dark yellow, Urine Appearance Clear, Urine pH 6.0, Ur Specific [place] 1.025, Urine Protein 1+ A, Urine Glucose (UA) Negative, Urine Ketones 1+, Urine Blood Negative, Urine Nitrate Negative, Urine Bilirubin Negative, Urine Urobilinogen 1.0, Ur Leukocyte Esterase Negative, Urine RBC Occasional, Urine WBC Occasional, Ur Squamous Epith Cells Occasional, Urine Bacteria Trace 01/25/25 21:47: Troponin I 0.02 01/26/25 00:22: Troponin I 0.02 I & O for Last 24 hours: Intake & Output 01/23/25 01/24/25 01/25/25 01/26/25 11:59 11:59 11:59 11:59 Intake Total 1000 / 1000 Output Total 0 / 0 Balance 1000 / 1000 Weight 148 lb 4.8 oz Constitutional Constitutional: no acute distress *Routine HEENT Exam Head: Present normocephalic and atraumatic Eye: Present PERRL; Absent conjunctival icterus, scleral injection or conjunctivae pink ENT: Present mucous membranes moist and oropharynx clear *Routine Neck Exam Neck: Present carotid bruit (Bilateral) *Routine Respiratory Exam Respiratory: Present CTA bilaterally (Anteriorly and posteriorly) *Routine Cardiovascular Exam Cardiovascular: Present RRR *Routine Abdominal Exam Abdominal: Present soft and normoactive bowel sounds; Absent tenderness or distended *Routine Rectal Exam Rectal:: deferred *Routine Genitalia Exam Genitalia:: deferred *Routine Extremities Exam Extremities: Present full ROM and pulses intact; Absent edema or calf tenderness *Routine Neurological Exam Neurological: Present alert and oriented X3; Absent altered mental status Assessment and Plan *Assessment and plan (1) UTI (urinary tract infection): Status: Acute Qualifiers: Hematuria presence: without hematuria Urinary tract infection type: site unspecified Qualified Code(s): N39.0 - Urinary tract infection, site not specified Category: Medical Code(s): N39.0 - Urinary tract infection, site not specified (2) Altered mental status: Status: Resolved Qualifiers: Altered mental status type: disorientation Qualified Code(s): R41.0 - Disorientation, unspecified Category: Medical Code(s): R41.82 - Altered mental status, unspecified (3) BPH (benign prostatic hyperplasia): Status: Chronic Category: Medical Code(s): N40.0 - Benign prostatic hyperplasia without lower urinary tract symptoms (4) Pacemaker: Status: Inactive Category: Medical Code(s): Z95.0 - Presence of cardiac pacemaker (5) ASCVD (arteriosclerotic cardiovascular disease): Status: Inactive Category: Medical Code(s): I25.10 - Atherosclerotic heart disease of [place] coronary artery without angina pectoris (6) Hypertension: Status: Acute Qualifiers: Hypertension type: primary hypertension Qualified Code(s): I10 - Essential (primary) hypertension Category: Medical Code(s): I10 - Essential (primary) hypertension (7) GERD (gastroesophageal reflux disease): Status: Chronic Category: Medical Code(s): K21.9 - Gastro-esophageal reflux disease without esophagitis (8) Hx of CABG: Status: Inactive Category: Surgical Code(s): Z95.1 - Presence of aortocoronary bypass graft (9) History of neuropathy: Status: Inactive Category: Medical Code(s): Z86.69 - Personal history of other diseases of the nervous system and sense organs (10) Chronic pain of both feet: Status: Inactive Category: Medical Code(s): M79.671 - Pain in right foot; M79.672 - Pain in left foot; G89.29 - Other chronic pain (11) Right foot drop: Status: Inactive Category: Medical Code(s): M21.371 - Foot drop, right foot (12) Chronic renal failure: Status: Acute Category: Medical Code(s): N18.9 - Chronic kidney disease, unspecified Plan Blood pressure has stabilized and this morning's have been 113/82 and 107/63 after receiving labetalol IV in the ER.. He has also been started on levofloxacin with pending cultures..
[2025-01-26] MEDS: ASPIRIN 81MG CHEWABLE TABLET 81 MG PO (11:45)
[2025-01-26] MEDS: levoFLOXacin 500MG TAB 500 MG PO (11:45)
[2025-01-26] MEDS: CEFTRIAXONE SODIUM 1 GM in 0.9 % SODIUM CHLORIDE 50 ML IV (11:45)
[2025-01-26] MEDS: GABAPENTIN 400MG CAPSULE 400 MG PO ×2 (11:45→20:09)
[2025-01-26] MEDS: FLUOXETINE 20MG CAPSULE 20 MG PO (11:52)
--- NOTE | 2025-01-26 14:46 | PC.NURSE ---
Aox4 up with assistance times 2, refused PT twice today, on RA, getting abx iv, cardiac diet, 20g L AC SL, using a urinal, bed alarm on.
[2025-01-26 16:00] VITALS: BP 141/63; PULSE 64; RESP 17; TEMP 36.6; O2SAT 98
[2025-01-26 20:00] VITALS: BP 160/70; PULSE 71; RESP 14; TEMP 37.3; O2SAT 97
[2025-01-26] MEDS: PT OWN MED *TAMSULOSIN 0.4 MG CAP 1 EACH PO (20:07)
[2025-01-26] MEDS: TEMAZEPAM 30MG CAPSULE 30 MG PO (20:07)
[2025-01-26] MEDS: PANTOPRAZOLE 40MG TABLET 40 MG PO (20:07)
[2025-01-26] MEDS: ATORVASTATIN 40MG TABLET 80 MG PO (20:07)
[2025-01-27] VITALS: BP 149/77; PULSE 94; RESP 14; TEMP 36.6; O2SAT 97
[2025-01-27 04:00] VITALS: BP 138/74; PULSE 94; RESP 14; TEMP 36.6; O2SAT 97; BMI 10.5
--- NOTE | 2025-01-27 05:02 | PC.NURSE ---
Pt A&OX4 and has tolerated room air. VSS. Lung sounds clear and bowel sounds active. He has required x1 assist when up. Using urinal to urinated. No complaints at this time, bed alarm in place.
[2025-01-27 08:00] VITALS: BP 124/66; PULSE 84; RESP 17; TEMP 36.9; O2SAT 99
--- NOTE | 2025-01-27 08:07 | P.PN_ITS ---
Subjective *Date: 01/27/25 *Time: 08:55 Interval history: Patient states he is going home today. He did eat breakfast but did not sleep well. He has his chronic pain but nothing acute. Medical Exam Vital signs and Labs for Last 24 Hours: Vital Signs Temp Pulse Resp BP Pulse Ox O2 Del Method 01/27/25 06:35 Room Air 01/27/25 05:00 Room Air 01/27/25 04:00 97.8 F 94 H 14 138/74 97 Room Air 01/27/25 03:00 Room Air 01/27/25 01:00 Room Air 01/27/25 00:00 97.8 F 94 H 14 149/77 H 97 Room Air 01/26/25 23:00 Room Air 01/26/25 21:00 Room Air 01/26/25 20:00 99.2 F 71 14 160/70 H 97 Room Air 01/26/25 20:00 Room Air 01/26/25 17:50 Room Air 01/26/25 16:47 Room Air 01/26/25 16:00 98 F 64 17 141/63 H 98 01/26/25 14:38 Room Air 01/26/25 12:22 Room Air 01/26/25 10:06 Room Air 01/26/25 08:36 Room Air Intake and Output 01/26/25 01/27/25 01/27/25 19:59 03:59 11:59 Intake Total 120 / 270 150 / 270 Output Total 0 / 0 Balance 120 / 270 150 / 270 Intake: Intake, Oral Amount 120 / 270 150 / 270 Output: Output, Urine Amount 0 / 0 Other: Number of Voids 0 Weight 67 lb 1 oz Patient Weight 01/27/25 11:59 Weight 67 lb 1 oz Laboratory Results - last 24 hr 01/26/25 06:07: Stl Aeromonas (PCR) Not detected, Stl C. cayetanensis PCR Not detected, Stool Rotavirus (PCR) Not detected, Stl Adenov F 40/41 PCR Not detecte d, Stool Astrovirus (PCR) Not detected, Stool Campylobacter PCR Not detected, Stl C.difficile Tox PCR Not detected, Stool Cryptosporidium PCR Not detected, Stl E.coli Shiga Tox PCR Not detected, Stool E coli O157 PCR Not detected, Stl Enterotoxigenic E PCR Not detected, Stool EPEC (PCR) Not detected, Stool EAEC (PCR) Not detected, Stl E. histolytica PCR Not detected, Stool Giardia Lamblia PCR Not detected, Stool Salmonella PCR Not detected, Stool Sapovirus (PCR) Not detected, Stl P. shigelloides PCR Not detected, Stl Shigella/EIEC PCR Not detected, St Y.enterocolitica PCR Not detected, Stool Vibrio (PCR) Not detected, Stl Vibrio cholerae PCR Not detected, Stl Norovirus GI/GII PCR Not detected I & O for Labs for Last 24 Hours: Intake & Output 01/24/25 01/25/25 01/26/25 01/27/25 11:59 11:59 11:59 11:59 Intake Total 1290 / 1290 270 / 270 Output Total 0 / 0 0 / 0 Balance 1290 / 1290 270 / 270 Weight 148 lb 4.8 oz 67 lb 1 oz Constitutional: Present no acute distress Respiratory: Present CTA bilaterally Cardiac: Present Reg Rate and Rhythm and Regular Rate GI: Present soft; Absent distention or tenderness Extremities: Absent edema Skin: Present intact Neuro: Present alert and awake Assessment and Plan *Assessment and plan (1) UTI (urinary tract infection): Status: Acute Qualifiers: Hematuria presence: without hematuria Urinary tract infection type: site unspecified Qualified Code(s): N39.0 - Urinary tract infection, site not specified Category: Medical Code(s): N39.0 - Urinary tract infection, site not specified (2) Altered mental status: Status: Resolved Qualifiers: Altered mental status type: disorientation Qualified Code(s): R41.0 - Disorientation, unspecified Category: Medical Code(s): R41.82 - Altered mental status, unspecified (3) BPH (benign prostatic hyperplasia): Status: Chronic Category: Medical Code(s): N40.0 - Benign prostatic hyperplasia without lower urinary tract symptoms (4) Pacemaker: Status: Inactive Category: Medical Code(s): Z95.0 - Presence of cardiac pacemaker (5) ASCVD (arteriosclerotic cardiovascular disease): Status: Inactive Category: Medical Code(s): I25.10 - Atherosclerotic heart disease of [place] coronary artery without angina pectoris (6) Hypertension: Status: Acute Qualifiers: Hypertension type: primary hypertension Qualified Code(s): I10 - Essential (primary) hypertension Category: Medical Code(s): I10 - Essential (primary) hypertension (7) GERD (gastroesophageal reflux disease): Status: Chronic Category: Medical Code(s): K21.9 - Gastro-esophageal reflux disease without esophagitis (8) Hx of CABG: Status: Inactive Category: Surgical Code(s): Z95.1 - Presence of aortocoronary bypass graft (9) History of neuropathy: Status: Inactive Category: Medical Code(s): Z86.69 - Personal history of other diseases of the nervous system and sense organs (10) Chronic pain of both feet: Status: Inactive Category: Medical Code(s): M79.671 - Pain in right foot; M79.672 - Pain in left foot; G89.29 - Other chronic pain (11) Right foot drop: Status: Inactive Category: Medical Code(s): M21.371 - Foot drop, right foot (12) Chronic renal failure: Status: Acute Category: Medical Code(s): N18.9 - Chronic kidney disease, unspecified Plan BP has improved. Awaiting urine culture. Will discuss further care with Dr. Urban.
[2025-01-27] MEDS: ASPIRIN 81MG CHEWABLE TABLET 81 MG PO (09:05)
[2025-01-27] MEDS: GABAPENTIN 400MG CAPSULE 400 MG PO ×3 (09:05→20:51)
[2025-01-27] MEDS: CEFTRIAXONE SODIUM 1 GM in 0.9 % SODIUM CHLORIDE 50 ML IV (09:05)
[2025-01-27] MEDS: FLUOXETINE 20 MG 1 EACH PO (09:06)
[2025-01-27 09:24] LABS: Basophils % 0.3 % (0.1-2.0); Eosinophils % 0.1 % (0.1-12.0); Hematocrit 35.5 % (42.0-52.0); Hemoglobin 11.8 g/dL (14.1-18.0); Immature Granulocytes # 0.06 10^3uL; Immature Granulocytes % 0.5 %; Lymphocytes # 1.3 K/mm3 (0.7-4.5); Lymphocytes % 9.8 % (10-50); Mean Corpuscular HGB Conc 33.2 g/dL (31.8-35.4); Mean Corpuscular Hemoglobin 28.9 pg (27.0-31.2); Mean Platelet Volume 10.1 fl (7.4-10.4); Monocytes # 0.7 K/mm3 (0.1-1.0); Monocytes % 5.6 % (1.7-9.3); Neutrophils # 11.1 K/mm3 (1.8-7.8); Neutrophils % 83.7 % (37.0-80.0); Nucleated Red Blood Cells # 0 10^3/uL; Nucleated Red Blood Cells % 0 %; Platelet Count 198 K/mm3 (142-424); Red Blood Count 4.08 M/mm3 (4.60-6.20); Red Cell Distribution Width 13.2 % (11.5-17.5); Red Cell Distribution Width-SD 41.9 fL; White Blood Count 13.2 K/mm3 (4.8-10.8)
[2025-01-27 09:47] LABS: Alanine Aminotransferase 14 U/L (12-78); Albumin Level 3.6 g/dl (3.5-5.0); Albumin/Globulin Ratio 1.6 (1.1-1.8); Alkaline Phosphatase 62 U/L (38-126); Anion Gap 12.6 mEq/L (5-15); Aspartate Amino Transferase 24 U/L (17-59); Bilirubin,Total 0.8 mg/dl (0.2-1.3); Blood Urea Nitrogen 25 mg/dl (9-20); Calcium 8.6 mg/dl (8.4-10.2); Carbon Dioxide 21 mmol/L (22.0-30.0); Chloride 107 mmol/L (98-107); Creatinine Clearance Estimated 16 mL/min (50-200); Estimated Glomerular Filt Rate 45 ml/min (>60); GFR (African American) 54 ML/MIN (>60); Globulin 2.3 g/dL (1.3-3.2); Glucose 137 mg/dl (74-100); Potassium 3.6 mmoL/L (3.5-5.1); Sodium 137 mmol/L (136-145); Total Protein,Serum 5.9 g/dl (6.3-8.2)
[2025-01-27 09:59] VITALS: BMI 23.3
[2025-01-27] MEDS: levoFLOXacin 500MG TAB 500 MG PO (10:51)
--- NOTE | 2025-01-27 11:46 | US_ITS ---
FINAL REPORT CLINICAL HISTORY: check post voiding for residual COMPARISON: None FINDINGS: PELVIC ULTRASOUND LIMITED: Pelvic ultrasound was performed to visualize the bladder. The postvoid residual of the bladder is 79 cc, consistent with moderate retention. There is a lobular partially calcified prostate gland that measures 4.5 x 3.5 cm in size. IMPRESSION: Postvoid residual of 79 cc, consistent with moderate urinary retention. Lobular partially calcified prostate gland, 4.5 x 3.5 cm in size. Reviewed, Interpreted and Dictated by Durga Connelly MD Transcribed by Debbie Borrero Authenticated and . [facility]
[2025-01-27 16:00] VITALS: BP 134/51; PULSE 66; RESP 16; TEMP 36.4; O2SAT 98
--- NOTE | 2025-01-27 18:35 | PC.NURSE ---
PATIENT IS A/OX4, REMAINS ON ROOM AIR TOLERATING WELL. HAS BEEN UP TO THE CHAIR THIS SHIFT. VOIDS PER URINAL. REFUSED PT/OT. TOLERATING DIET. IV ABX INFUSED.NO C/O OF PAIN. VSS. CALL LIGHT WITHIN REACH, BED ALARM IN PLACE. NO FURTHER REQUESTS AT THIS TIME
[2025-01-27 20:00] VITALS: BP 127/58; PULSE 65; RESP 16; TEMP 36.9; O2SAT 98
[2025-01-27] MEDS: TEMAZEPAM 30MG CAPSULE 30 MG PO (20:51)
[2025-01-27] MEDS: ATORVASTATIN 40MG TABLET 80 MG PO (20:51)
[2025-01-27] MEDS: PANTOPRAZOLE 40MG TABLET 40 MG PO (20:51)
[2025-01-27] MEDS: PT OWN MED *TAMSULOSIN 0.4 MG CAP 1 EACH PO (20:52)
[2025-01-28] VITALS: BP 141/68; PULSE 85; RESP 16; TEMP 36.9; O2SAT 95
[2025-01-28 04:00] VITALS: BP 104/55; PULSE 74; RESP 16; TEMP 36.6; O2SAT 98; BMI 21.9
--- NOTE | 2025-01-28 06:03 | PC.NURSE ---
v/s, ox4. Pt has been very pleasant. No acute events to report. Plan of care ongoing.
[2025-01-28 08:00] VITALS: BP 123/63; PULSE 78; RESP 16; TEMP 36.6; O2SAT 95
--- NOTE | 2025-01-28 08:15 | P.PN_ITS ---
Subjective *Date: 01/28/25 *Time: 08:15 Interval history: Patient states he is feeling better today but is anxious to go home. His pain level is at a 7. He normally takes hydrocodone at home tid and he doesn't think he has had any during this admission. He slept well and ate all of his breakfast. Medical Exam Vital signs and Labs for Last 24 Hours: Vital Signs Temp Pulse Resp BP Pulse Ox O2 Del Method 01/28/25 08:00 97.8 F 78 16 123/63 95 Room Air 01/28/25 05:50 Room Air 01/28/25 04:25 Room Air 01/28/25 04:00 97.8 F 74 16 104/55 L 98 Room Air 01/28/25 03:00 Room Air 01/28/25 00:00 98.5 F 85 16 141/68 H 95 Room Air 01/28/25 00:00 Room Air 01/27/25 23:00 Room Air 01/27/25 21:00 Room Air 01/27/25 20:00 Room Air 01/27/25 20:00 98.4 F 65 16 127/58 L 98 Room Air 01/27/25 18:33 Room Air 01/27/25 17:00 Room Air 01/27/25 16:00 97.6 F 66 16 134/51 L 98 Room Air 01/27/25 14:30 Room Air 01/27/25 13:00 Room Air 01/27/25 11:00 Room Air 01/27/25 08:46 Room Air Intake and Output 01/27/25 01/28/25 01/28/25 19:59 03:59 11:59 Intake Total 420 / 540 120 / 540 Output Total 425 / 426 Balance 419 / 114 -305 / 114 Intake: Intake, Oral Amount 420 / 540 120 / 540 Output: Output, Urine Amount 425 / 426 Other: Number of Unmeasured Voids 350 Weight 139 lb 9 oz Patient Weight 01/28/25 11:59 Weight 139 lb 9 oz Laboratory Results - last 24 hr 01/27/25 09:15: WBC 13.2 H, RBC 4.08 L, Hgb 11.8 L, Hct 35.5 L, MCV 87.0, MCH 28.9, MCHC 33.2, RDW 13.2, Plt Count 198, MPV 10.1, Neut % (Auto) 83.7 H, Lymph % (Auto) 9.8 L, [place] % (Auto) 5.6, Eos % (Auto) 0.1, Baso % (Auto) 0.3, Neut # (Auto) 11.1 H, Lymph # (Auto) 1.3, [place] # (Auto) 0.7, Eos # (Auto) 0.0, Baso # (Auto) 0.0, Sodium 137, Potassium 3.6, Chloride 107, Carbon Dioxide 21 L, Anion Gap 12.6, BUN 25 H, Creatinine 1.50 H, Estimated Creat Clear 16, Estimated GFR 45 L, Est GFR ( Amer) 54 L, Glucose 137 H, Calcium 8.6, Total Bilirubin 0.8, AST 24, ALT 14 D, Alkaline Phosphatase 62, Total Protein 5.9 L, Albumin 3.6, Globulin 2.3, Albumin/Globulin Ratio 1.6 I & O for Labs for Last 24 Hours: Intake & Output 01/25/25 01/26/25 01/27/25 01/28/25 11:59 11:59 11:59 11:59 Intake Total 1290 / 1290 390 / 390 540 / 540 Output Total 0 / 0 0 / 0 426 / 426 Balance 1290 / 1290 390 / 390 114 / 114 Weight 148 lb 4.8 oz 148 lb 8 oz 139 lb 9 oz Microbiology Reports for the Last 24 Hours: Microbiology 01/25/25 19:47 Urine,Clean Catch Urine Culture - Final Multiple organisms, suggests contamination. Constitutional: Present no acute distress Respiratory: Present CTA bilaterally Cardiac: Present Reg Rate and Rhythm and Regular Rate GI: Present soft; Absent distention or tenderness Extremities: Absent edema Skin: Present intact Neuro: Present alert and awake Assessment and Plan *Assessment and plan (1) UTI (urinary tract infection): Status: Acute Qualifiers: Urinary tract infection type: site unspecified Hematuria presence: without hematuria Qualified Code(s): N39.0 - Urinary tract infection, site not specified Category: Medical Code(s): N39.0 - Urinary tract infection, site not specified (2) Altered mental status: Status: Resolved Qualifiers: Altered mental status type: disorientation Qualified Code(s): R41.0 - Disorientation, unspecified Category: Medical Code(s): R41.82 - Altered mental status, unspecified (3) BPH (benign prostatic hyperplasia): Status: Chronic Category: Medical Code(s): N40.0 - Benign prostatic hyperplasia without lower urinary tract symptoms (4) Pacemaker: Status: Inactive Category: Medical Code(s): Z95.0 - Presence of cardiac pacemaker (5) ASCVD (arteriosclerotic cardiovascular disease): Status: Inactive Category: Medical Code(s): I25.10 - Atherosclerotic heart disease of [place] coronary artery without angina pectoris (6) Hypertension: Status: Acute Qualifiers: Hypertension type: primary hypertension Qualified Code(s): I10 - Essential (primary) hypertension Category: Medical Code(s): I10 - Essential (primary) hypertension (7) GERD (gastroesophageal reflux disease): Status: Chronic Category: Medical Code(s): K21.9 - Gastro-esophageal reflux disease without esophagitis (8) Hx of CABG: Status: Inactive Category: Surgical Code(s): Z95.1 - Presence of aortocoronary bypass graft (9) History of neuropathy: Status: Inactive Category: Medical Code(s): Z86.69 - Personal history of other diseases of the nervous system and sense organs (10) Chronic pain of both feet: Status: Inactive Category: Medical Code(s): M79.671 - Pain in right foot; M79.672 - Pain in left foot; G89.29 - Other chr onic pain (11) Right foot drop: Status: Inactive Category: Medical Code(s): M21.371 - Foot drop, right foot (12) Chronic renal failure: Status: Acute Category: Medical Code(s): N18.9 - Chronic kidney disease, unspecified Plan Urine culture shows mixed organisms. Will discuss further care with Dr. Urban.
[2025-01-28] MEDS: GABAPENTIN 400MG CAPSULE 400 MG PO ×2 (08:23→12:40)
[2025-01-28] MEDS: ASPIRIN 81MG CHEWABLE TABLET 81 MG PO (08:23)
[2025-01-28] MEDS: CEFTRIAXONE SODIUM 1 GM in 0.9 % SODIUM CHLORIDE 50 ML IV (08:23)
[2025-01-28] MEDS: HYDROCODONE 10MG/APAP 325MG TAB 1 TAB PO (08:24)
[2025-01-28] MEDS: FLUOXETINE 20 MG 1 EACH PO (08:24)
--- NOTE | 2025-01-28 08:36 | SW/DCPLANNER ---
I spoke w/ this patient regarding plans once medically stable for discharge. PT has been ordered but refuses to work w/ therapy. Patient stated that he plans to return home w / his family to check on him often. Patient stated that he uses an electric wheelchair at home currently. Patient is not interested in any services including home health. I will continue to follow up w/ patient during hospital admission. Discharge date is unknown at this time.
[2025-01-28 10:48] LABS: Basophils % 0.4 % (0.1-2.0); Eosinophils # 0.1 Kmm3 (0.0-0.4); Eosinophils % 1.1 % (0.1-12.0); Hematocrit 33.7 % (42.0-52.0); Hemoglobin 11.4 g/dL (14.1-18.0); Immature Granulocytes # 0.04 10^3uL; Immature Granulocytes % 0.4 %; Lymphocytes # 1.4 K/mm3 (0.7-4.5); Lymphocytes % 15.3 % (10-50); Mean Corpuscular HGB Conc 33.8 g/dL (31.8-35.4); Mean Corpuscular Volume 88.7 fl (80-94); Monocytes # 0.7 K/mm3 (0.1-1.0); Neutrophils # 7.1 K/mm3 (1.8-7.8); Neutrophils % 75.8 % (37.0-80.0); Nucleated Red Blood Cells # 0 10^3/uL; Nucleated Red Blood Cells % 0 %; Platelet Count 180 K/mm3 (142-424); Red Cell Distribution Width 13.3 % (11.5-17.5); Red Cell Distribution Width-SD 42.9 fL; White Blood Count 9.4 K/mm3 (4.8-10.8)
[2025-01-28 11:02] LABS: Chloride 108 mmol/L (98-107); Potassium 3.9 mmoL/L (3.5-5.1); Sodium 137 mmol/L (136-145)
[2025-01-28 11:05] LABS: Anion Gap 7.9 mEq/L (5-15); Blood Urea Nitrogen 30 mg/dl (9-20); Carbon Dioxide 25 mmol/L (22.0-30.0); Creatinine Clearance Estimated 29 mL/min (50-200); Estimated Glomerular Filt Rate 39 ml/min (>60); GFR (African American) 47 ML/MIN (>60)
[2025-01-28 11:06] LABS: Calcium 8.5 mg/dl (8.4-10.2); Glucose 124 mg/dl (74-100)
[2025-01-28 12:51] VITALS: BMI 21.9
--- NOTE | 2025-02-01 08:17 | EXP.DC.SUM ---
General Admission date:: 01/25/25 Discharge date: 01/28/25 HPI HPI HPI: Mr. Brady is an 84-year-old male patient with a history of COPD, ASCVD followed by Dr. Morales, hyperlipidemia, arthritis, peptic ulcer disease, hiatal hernia, diverticulosis, depression, BPH followed by Dr. Cornell urologist in [place], chronic back pain followed by [facility], tinnitus, hyperglycemia, and right foot drop, who was brought to the [facility] emergency room for evaluation by his son with altered mental status. Patient does not recall why he came to the hospital or the events of yesterday. Per son patient has been experiencing urinary incontinence, frequent urination, and foul-smelling urine. Patient recalls just voiding frequently. He normally sees urology about every 3 months for PSA. He has noted to have previous urinary tract infections which has also caused confusion. With evaluation in the emergency room patient did become hypertensive. White blood cell count was found to be 12,600 with a hemoglobin of 13.8 and hematocrit of 40.3. Total bilirubin was 1.4; T4 was 13.6. Urinalysis showed 1+ protein, positive ketones negative nitrate, negative leuk esterase, occasional RBC ANd WBC and a trace of urine bacteria. In the emergency room he did receive a liter of IV fluids. Head CT revealed no acute intracranial abnormalities. This a.m. patient denies chest pain and shortness of breath. He states he has an occasional cough which is productive of clear sputum. He relates that he does void frequently and has for a long period of time. He is eating breakfast without difficulty. Since admission patient has developed diarrhea. He states he was up all during the night with diarrhea. Diarrhea panel has been ordered. Prior to admission he states his bowels move irregularly and sometimes he is constipated. He cannot recall his last bowel movement prior to admission Hospital Course Hospital Course Hospital Course: Patient was hypertensive in the emergency room and received labetalol IV. After this his blood pressure normalized. He was started on levofloxacin with pending cultures. White blood cell count remained elevated. He was noted to have prostate issues and followed by Dr. Cornell, urology. Patient was able to eat and drink normally. He ambulated without difficulty. On 01/28/2025 he was felt to be stable to be discharged. He was to continue with the levofloxacin at home. White blood cell count remained at 13,200. Renal function remained diminished with a creatinine of 1.5 and a BUN of 25. Urine culture revealed multiple organisms suggesting contamination. He was to follow-up with Dr. Crain in the office of [facility]. Exam Data for Last 24 hours Vital signs and Labs for Last 24 Hours: Temp Pulse Resp BP Pulse Ox O2 Del Method 97.8 F 78 16 123/63 95 Room Air 01/28/25 08:00 01/28/25 08:00 01/28/25 08:00 01/28/25 08:00 01/28/25 08:00 01/28/25 13:02 I & O for Last 24 hours: Intake & Output 01/29/25 01/30/25 01/31/25 02/01/25 11:59 11:59 11:59 11:59 Intake Total 240 / 240 Balance 240 / 240 Weight 139 lb 8.842 oz Radiology Reports for the Last 24 Hours: 01/27/2025 Bladder U FINDINGS: PELVIC ULTRASOUND LIMITED: Pelvic ultrasound was performed to visualize the bladder. The postvoid residual of the bladder is 79 cc, consistent with moderate retention. There is a lobular partially calcified prostate gland that measures 4.5 x 3.5 cm in size. IMPRESSION: Postvoid residual of 79 cc, consistent with moderate urinary retention. Lobular partially calcified prostate gland, 4.5 x 3.5 cm in size. Narrative: PE at [facility] 01/28/2025 Constitutional: Present no acute distress Respiratory: Present CTA bilaterally Cardiac: Present Reg Rate and Rhythm and Regular Rate GI: Present soft; Absent distention or tenderness Extremities: Absent edema Skin: Present intact Neuro: Present alert and awake Results Data Completed and Pending Completed studies during hospitalization [Text1]: 01/25/[address] FINDINGS: Brain: No hemorrhage. Underlying periventricular white matter changes and parenchymal cortical volume loss. No mass effect. Cerebral ventricles: No ventriculomegaly. Paranasal sinuses: Visualized sinuses are unremarkable. No fluid levels. Mastoid air cells: Visualized mastoid air cells are well aerated. Bones: Unremarkable. No acute fracture. Soft tissues: Unremarkable. IMPRESSION: No acute intracranial abnormality. 01/27/25 09:15: WBC 13.2 H, RBC 4.08 L, Hgb 11.8 L, Hct 35.5 L, MCV 87.0, MCH 28.9, MCHC 33.2, RDW 13.2, Plt Count 198, MPV 10.1, Neut % (Auto) 83.7 H, Lymph % (Auto) 9.8 L, [place] % (Auto) 5.6, Eos % (Auto) 0.1, Baso % (Auto) 0.3, Neut # (Auto) 11.1 H, Lymph # (Auto) 1.3, [place] # (Auto) 0.7, Eos # (Auto) 0.0, Baso # (Auto) 0.0, Sodium 137, Potassium 3.6, Chloride 107, Carbon Dioxide 21 L, Anion Gap 12.6, BUN 25 H, Creatinine 1.50 H, Estimated Creat Clear 16, Estimated GFR 45 L, Est GFR ( Amer) 54 L, Glucose 137 H, Calcium 8.6, Total Bilirubin 0.8, AST 24, ALT 14 D, Alkaline Phosphatase 62, Total Protein 5.9 L, Albumin 3.6, Globulin 2.3, Albumin/Globulin Ratio 1.6 DS: Diagnosis Discharge Diagnosis (1) UTI (urinary tract infection): Status: Resolved Code(s): N39.0 - Urinary tract infection, site not specified Qualifiers: Urinary tract infection type: site unspecified Hematuria presence: without hematuria Qualified Code(s): N39.0 - Urinary tract infection, site not specified (2) Altered mental status: Status: Resolved Code(s): R41.82 - Altered mental status, unspecified Qualifiers: Altered mental status type: disorientation Qualified Code(s): R41.0 - Disorientation, unspecified (3) BPH (benign prostatic hyperplasia): Status: Chronic Code(s): N40.0 - Benign prostatic hyperplasia without lower urinary tract symptoms (4) Pacemaker: Status: Inactive Code(s): Z95.0 - Presence of cardiac pacemaker (5) ASCVD (arteriosclerotic cardiovascular disease): Status: Inactive Code(s): I25.10 - Atherosclerotic heart disease of [place] coronary artery without angina pectoris (6) Hypertension: Status: Acute Code(s): I10 - Essential (primary) hypertension Qualifiers: Hypertension type: primary hypertension Qualified Code(s): I10 - Essential (primary) hypertension (7) GERD (gastroesophageal reflux disease): Status: Inactive Code(s): K21.9 - Gastro-esophageal reflux disease without esophagitis (8) Hx of CABG: Status: Inactive Code(s): Z95.1 - Presence of aortocoronary bypass graft (9) History of neuropathy: Status: Inactive Code(s): Z86.69 - Personal history of other diseases of the nervous system and sense organs (10) Chronic pain of both feet: Status: Inactive Code(s): M79.671 - Pain in right foot; M79.672 - Pain in left foot; G89.29 - Other chronic pain (11) Right foot drop: Status: Inactive Code(s): M21.371 - Foot drop, right foot (12) Chronic renal failure: Status: Acute Code(s): N18.9 - Chronic kidney disease, unspecified Meds Home Medications and Allergies Home Medications ?Medication ?Instructions ?Recorded ?Confirmed ?Type atorvastatin 80 mg tablet 80 mg PO HS 12/06/18 01/25/25 History pantoprazole 40 mg tablet,delayed 40 mg PO HS 12/06/18 01/25/25 History release temazepam 30 mg capsule (Restoril) 30 mg PO HS 12/06/18 01/25/25 History cyanocobalamin (vitamin B-12) 1,000 mcg PO DAILY 01/28/21 01/25/25 History 1,000 mcg tablet aspirin 81 mg chewable tablet 81 mg PO DAILY 01/29/21 01/25/25 History cholecalciferol (vitamin D3) 50 2,000 unit PO DAILY 01/29/21 01/25/25 History mcg (2,000 unit) tablet docusate sodium 100 mg capsule 100 mg PO BIDP PRN Constipation 01/29/21 01/25/25 History ferrous sulfate 325 mg (65 mg 325 mg PO DAILY 01/01/24 01/25/25 History iron) tablet hydrocodone 10 mg-acetaminophen 1 tab PO Q8H PRN Pain, Moderate 01/01/24 01/25/25 History 325 mg tablet fluoxetine 20 mg capsule 20 mg PO DAILY 01/02/24 01/25/25 History meloxicam 15 mg tablet 15 mg PO DAILY 01/25/25 01/25/25 History tamsulosin 0.4 mg capsule 0.4 mg PO HS 01/26/25 01/25/25 History gabapentin 600 mg tablet 600 mg PO BID #60 tabs 01/28/25 01/25/25 Rx levofloxacin 500 mg tablet 500 mg PO Q48H #3 tabs 01/28/25 Rx New Prescriptions to Start Prescriptions: levofloxacin Argenis Urban Allergies Allergy/AdvReac Type Severity Reaction Status Date / Time No Known Allergies Allergy Verified 12/03/22 14:44 Discharge Plan Disposition Patient Disposition: Home, Self-Care Condition: Fair Follow up Plan Follow up with: David Crain MD [Primary Care Provider, Medical] - 02/11/25 3:45 pm Prescriptions/Medication Reconciliation: New levofloxacin 500 mg Tablet 500 mg PO Q48H Qty: 3 1RF Continued atorvastatin 80 MG tablet 80 mg PO HS temazepam [Restoril] 30 MG capsule 30 mg PO HS pantoprazole 40 MG tablet,delayed release (DR/EC) 40 mg PO HS cyanocobalamin (vitamin B-12) 1,000 MCG tablet 1,000 mcg PO DAILY aspirin 81 MG tablet,chewable 81 mg PO DAILY docusate sodium 100 MG capsule 100 mg PO BIDP PRN (Reason: Constipation) cholecalciferol (vitamin D3) 50 MCG tablet 2,000 unit PO DAILY meloxicam 15 mg Tablet 15 mg PO DAILY tamsulosin 0.4 MG capsule 0.4 mg PO HS Rx Instructions: PT NEEDS REFILLS CALLED IN hydrocodone-acetaminophen 10-325 mg Tablet 1 tab PO Q8H PRN (Reason: Pain, Moderate) ferrous sulfate 325 mg (65 mg iron) Tablet 325 mg PO DAILY fluoxetine 20 mg capsule 20 mg PO DAILY Changed gabapentin 600 MG tablet 600 mg PO BID Qty: 60 0RF Discontinued methocarbamol 500 mg Tablet 500 mg PO TID Problem Reconciliation Problems Reviewed?: Yes Patient Discharge Instructions ACTIVITY: Limited activity DIET: advance to your usual diet Patient Instructions: Delirium, DI for Kidney Failure, DI for Urinary Tract Infection (UTI), Stop Light Infection Print Language: Ukrainian Providers Primary Care Provider: David Crain Admit Provider: Argenis Urban Attending Provider: Argenis Urban
--- NOTE | 2025-02-01 13:01 | CARE MANAGER ---
Contacted related to hospital discharge. He has been taking antibiotics and is aware of follow up appointment. Denies questions at this time.
== END 2025-01-28 13:52 | disposition home or self-care (01) ==
LOC: ER 20:43 → 2ND 20:44
PROVIDERS: Admitting Provider Family Medicine; Emergency Provider Emergency Medicine; PCP Family Medicine; Visit Provider Family Medicine
DX: N39.0 Urinary tract infection, site not specified (principal); R41.0 Disorientation, unspecified; N40.0 Benign prostatic hyperplasia without lower urinary tract symptoms; K21.9 Gastro-esophageal reflux disease without esophagitis; I25.10 Atherosclerotic heart disease of native coronary artery without angina pectoris; I12.9 Hypertensive chronic kidney disease with stage 1 through stage 4 chronic kidney disease, or unspecified chronic kidney disease; N18.9 Chronic kidney disease, unspecified; J44.9 Chronic obstructive pulmonary disease, unspecified; K44.9 Diaphragmatic hernia without obstruction or gangrene; M21.371 Foot drop, right foot; G89.29 Other chronic pain; E78.5 Hyperlipidemia, unspecified; F32.A Depression, unspecified; K57.90 Diverticulosis of intestine, part unspecified, without perforation or abscess without bleeding; K27.9 Peptic ulcer, site unspecified, unspecified as acute or chronic, without hemorrhage or perforation; Z95.0 Presence of cardiac pacemaker; Z95.1 Presence of aortocoronary bypass graft; Z86.69 Personal history of other diseases of the nervous system and sense organs; Z87.891 Personal history of nicotine dependence; Z79.82 Long term (current) use of aspirin; Z79.1 Long term (current) use of non-steroidal anti-inflammatories (NSAID); Z79.899 Other long term (current) drug therapy; Z82.49 Family history of ischemic heart disease and other diseases of the circulatory system
CPT/HCPCS: 96361; 96374; 96375; 36415; 70450; 76857; 80048; 80053; 81001; 84436; 84443; 84484; 85025; 87086; 87507; 93005; 99291; G0378; J0696; J2405; J7120